=== PATIENT | female | born 1940 | race Caucasian/White ===

== ENCOUNTER → 2017-08-13 12:53 | Outpatient (CLI) | payer MEDICARE, MEDICAID, SELFPAY ==
[2017-08-13 14:48] LABS: Hematocrit 33.1 % (37-47); Mean Corp Hgb Conc 30.2 g/gl (32-36); Mean Corpuscular Hgb 28.8 pg (27.0-32.0); Mean Corpuscular Volume 95.4 fL (81-99); Mean Platelet Vol. 11.6 fl (6.2-12.0); Platelet Count 179 K/mm3 (150-450); RBC Distribution Width CV 15.5 % (11.6-14.6); RBC Distribution Width SD 51.4 fl (35.1-43.9); Red Blood Count 3.47 M/mm3 (4.2-5.4); White Blood Count 4.9 K/mm3 (4.4-11.0)
[2017-08-13 14:51] LABS: Scan Indicated on CBC? Y/N NO
[2017-08-13 15:28] LABS: Albumin, Serum 2.9 g/dL (3.2-5.0); BUN 27 mg/dL (7-18); BUN/Creat Ratio 11.7 RATIO (10-20); Calcium,Total 8.5 mg/dL (8.5-10.1); Chloride 106 mmol/L (98-107); EST Glomerular Filtration Rate 22 mL/min (>60); Est Glom Filt Rate - Afr Amer 26 mL/min (>60); Glucose 86 mg/dL (74-106); Phosphorus 2.7 mg/dL (2.5-4.9); Potassium 3.3 mmol/L (3.5-5.1); Sodium Level 144 mmol/L (136-145)
[2017-08-13 19:31] LABS: PTHIN 163.2 pg/mL (18.4-80.1)
--- NOTE | 2017-08-15 11:50 | PFT ---
INTRODUCTION: The patient is a 76-year-old female currently under the care of Uday ruby NP that presents for pulmonary function testing secondary to a diagnosis of high risk medication use. Respiratory therapy reports good patient effort and reports no other concerns. Bronchodilators were used during testing. INTERPRETATION: Forced expiration spirometry demonstrates no evidence of a large airways obstructive ventilatory defect. There was no significant response to aerosolized bronchodilators, based upon strict ATS criteria. Spirograms of good quality and plateau normally. Body plus tomography was performed and reveals lung volumes to be within normal limits. Diffusing capacity by single breath CO is severely reduced at 44% of predicted. When compared to previous pulmonary function studies dated July 2016 there has been a significant reduction in the patient's diffusing capacity. IMPRESSION: These pulmonary function studies demonstrate the presence of an isolated severe reduction in diffusing capacity, which could be related to an underlying pulmonary vascular disorder such as pulmonary hypertension. Since PFTs were last completed in July 2016, there has been a significant reduction in the patient's diffusing capacity. Clinical correlation is recommended.
== END ==
PROVIDERS: Family Provider Family Medicine; PCP Family Medicine; Visit Provider Nurse Practitioner Family
DX: I51.7 Cardiomegaly (principal); R60.0 Localized edema; N18.4 Chronic kidney disease, stage 4 (severe); I48.0 Paroxysmal atrial fibrillation; I50.22 Chronic systolic (congestive) heart failure; I25.10 Atherosclerotic heart disease of native coronary artery without angina pectoris; I25.5 Ischemic cardiomyopathy; I10 Essential (primary) hypertension; E78.5 Hyperlipidemia, unspecified; I25.2 Old myocardial infarction; Z79.899 Other long term (current) drug therapy; Z95.1 Presence of aortocoronary bypass graft
CPT/HCPCS: 36415; 80069; 83970; 85027; 94060; 94726; 94729

== ENCOUNTER 2017-09-06 06:59 | Emergency (ER) | payer MEDICARE, MEDICAID, SELFPAY ==
[2017-09-06 07:00] VITALS: BP 142/67; PULSE 54; RESP 18; TEMP 36.2; O2SAT 95; BMI 34.3
[2017-09-06 07:09] VITALS: O2SAT 97
--- NOTE | 2017-09-06 07:12 | EKG12_ITS ---
Test Reason : SOB Blood Pressure : / mmHG Vent. Rate : 050 BPM Atrial Rate : 050 BPM P-R Int : 196 ms QRS Dur : 130 ms QT Int : 510 ms P-R-T Axes : 063 -48 052 degrees QTc Int : 464 ms Sinus bradycardia Left axis deviation Non-specific intra-ventricular conduction block Abnormal ECG Confirmed by FRANCISCO GONZALEZ, LIZETTE ([id number]), newspaper or periodical editor GONSALO MATHEW ([id number]) on 09/08/2017 1:53:01 PM Referred By: MAAME Confirmed By:LIZETTE SINGH MD
--- NOTE | 2017-09-06 07:12 | RAD_ITS ---
STUDY: X-RAY CHEST REASON FOR EXAM: Female, 76 years old. Increasing shortness of breath. TECHNIQUE: PA and lateral views of the chest. COMPARISON: Comparison is made with prior study dated February 25, 2016. FINDINGS: EKG electrodes are seen. The patient is status post left mastectomy and left axillary node dissection. Blastic congestion and mild degree of CHF. There is no demonstrated pleural abnormality. Sternal cerclage wires are present from a prior sternotomy. A metallic clip is seen in the region of the left atrium. Normal mediastinum and ritika. Normal visualized pulmonary arteries. There is atherosclerotic calcification of the aortic arch with tortuosity. Cardiomegaly. There are diffuse degenerative changes of the visualized thoracic spine. Normal visualized ribs, clavicles, and shoulders. There is no demonstrated abnormality of the visualized soft tissue structures of the upper abdomen. RAD/Chest PA and Lateral IMPRESSION: Cardiomegaly and CHF. Electronically Signed: Pavel Macias MD at 8:15 EST Tel [phone], Service support ,
--- NOTE | 2017-09-06 07:15 | ED.VISSUMM ---
- ER Visit Summary Date of Service: 09/06/17 Chief Complaint: Leg swelling and shortness of breath History of Present Illness: The patient is a 76 F who states that she has had leg swelling for the past several weeks. She states that she has never really had significant leg swelling in the past. 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 She states that this was because of declining renal function. At her last director home in (Dr. Campbell) office her amiodarone was also decreased. Patient has noted that as her legs is swollen she has been somewhat short of breath with exertion. No chest pain. Patient has had a CABG about 2.5 years ago. Physical Examination: Afebrile vital signs are stable Gen: Well-nourished well-developed Head: Normocephalic atraumatic Eyes: Perrl EOMI ENT: TMs clear no rhinorrhea moist mucous membranes Neck: Supple no lymphadenopathy no JVD nontender CVS: Regular rate rhythm no murmurs normal S1-S2 Respiratory: No distress clear to auscultation bilaterally chest nontender Abdomen: Soft nontender nondistended normal bowel sounds no masses Back: Nontender Extremity: 3+ edema bilaterally to the level of the knee Skin: Normal color no rash Neuro: alert orientated ?3 CN II-XII intact normal strength sensation reflexes gait cerebellar Psych: Normal affect normal mood Test Results: 3 shows a mild amount of pulmonary fluid. Creatinine is improved from 2.3 on August 13 down to 1.8 on every today. White count is normal. Troponin negative. Nitrate peptide 1844. EKG shows a sinus bradycardia rate of 50 with a nonspecific intraventricular conduction delay. Emergency Department Course and Treatment: Ambulated the patient she was 94% on room air. I spoke with Dr. Patten plan will be to give her 40 of Lasix IV and take her back to 40 mg. She is to see Dr. Patten next week for repeat examination and check of creatinine level. She is comfortable with this plan. Impression: 1. Lymphedema 2. Congestive heart failure 3. Chronic kidney disease This note was generated with [employer] software. It may contain incorrect words, spelling, and punctuation that were not noted in review of the chart prior to signing ED Disposition - Plan for ED Patient: Disposition: Home or Assisted Living Chief Complaint: Shortness of Breath Instructions: ED CHF General, ED Lymphedema Prescriptions: Furosemide [Lasix] 40 mg PO DAILY #20 tab Referrals: Hero Knapp MD [Primary Care Provider] - Marilia Patten DO [STAFF PHYSICIAN] - (call today to arrange early follow up to have your legs and kidney function checked)
[2017-09-06 07:49] VITALS: O2SAT 95
[2017-09-06 07:54] LABS: Absolute Lymphocyte Count 0.77 X10^3/ul (0.83-4.51); Absolute Neutrophil Count 3.2 X10^3/uL (2.0-7.7); Basophil# 0.01 X10^3/uL; Basophil% 0.2 % (0-1); Eosinophil# 0.18 X10^3/uL; Hematocrit 33.5 % (37-47); Hemoglobin 9.9 g/dl (12.0-15.0); Lymphocyte # 0.77 X10^3/ul (4.0); Lymphocyte % 17.3 % (19-41); Mean Corp Hgb Conc 29.6 g/gl (32-36); Mean Corpuscular Hgb 28.1 pg (27.0-32.0); Mean Corpuscular Volume 95.2 fL (81-99); Mean Platelet Vol. 10.2 fl (6.2-12.0); Monocyte# 0.35 X10^3/uL; Monocyte% 7.8 % (0-10); Neutrophil # 3.15 X10^3/uL (2.7-7.7); Neutrophil % 70.7 % (47-70); POSITIVE COUNT NO; POSITIVE DIFFERENTIAL NO; POSITIVE MORPHOLOGY NO; Platelet Count 147 K/mm3 (150-450); RBC Distribution Width CV 16.2 % (11.6-14.6); RBC Distribution Width SD 56.4 fl (35.1-43.9); Red Blood Count 3.52 M/mm3 (4.2-5.4); White Blood Count 4.5 K/mm3 (4.4-11.0)
[2017-09-06 08:11] LABS: Anion Gap 3 (5-15); BUN 24 mg/dL (7-18); BUN/Creat Ratio 13.3 RATIO (10-20); Calcium,Total 8.9 mg/dL (8.5-10.1); Chloride 113 mmol/L (98-107); Creatinine, Serum 1.81 mg/dL (0.55-1.02); EST Glomerular Filtration Rate 29 mL/min (>60); Est Glom Filt Rate - Afr Amer 35 mL/min (>60); Estimated Creatinine Clearance 19.64 ml/min; Glucose 89 mg/dL (74-106); Potassium 3.8 mmol/L (3.5-5.1); Sodium Level 147 mmol/L (136-145)
[2017-09-06 08:20] LABS: BNP,B-Type NATRIURETIC PEPTIDE 1844.3 pg/mL (0-100)
[2017-09-06 09:08] VITALS: BP 149/72; PULSE 49; RESP 16; O2SAT 93
[2017-09-06 09:09] VITALS: BP 137/65
[2017-09-06] MEDS: Furosemide 40 MG/4 ML Vial IV (09:14)
== END 2017-09-06 09:24 | disposition home or self-care (01) ==
PROVIDERS: Emergency Provider Emergency Medicine; Family Provider Family Medicine; PCP Family Medicine
DX: I89.0 Lymphedema, not elsewhere classified (principal); I50.9 Heart failure, unspecified; N18.9 Chronic kidney disease, unspecified; R00.1 Bradycardia, unspecified; Z95.1 Presence of aortocoronary bypass graft; Z85.3 Personal history of malignant neoplasm of breast
CPT/HCPCS: 71046; 80048; 83880; 84484; 85025; 93005; 99285; A4216; J1940

== ENCOUNTER → 2017-10-26 12:27 | Outpatient (CLI) | payer MEDICARE, MEDICAID, SELFPAY ==
[2017-10-26 13:24] LABS: Hematocrit 33.5 % (37-47); Mean Corp Hgb Conc 29.9 g/gl (32-36); Mean Corpuscular Hgb 28.8 pg (27.0-32.0); Mean Corpuscular Volume 96.5 fL (81-99); Mean Platelet Vol. 10.9 fl (6.2-12.0); Platelet Count 158 K/mm3 (150-450); RBC Distribution Width CV 16.6 % (11.6-14.6); RBC Distribution Width SD 59.1 fl (35.1-43.9); Red Blood Count 3.47 M/mm3 (4.2-5.4); White Blood Count 4.2 K/mm3 (4.4-11.0)
[2017-10-26 13:26] LABS: Scan Indicated on CBC? Y/N NO
[2017-10-26 13:43] LABS: Albumin, Serum 3.1 g/dL (3.2-5.0); BUN 28 mg/dL (7-18); BUN/Creat Ratio 12.7 RATIO (10-20); Calcium,Total 8.8 mg/dL (8.5-10.1); Chloride 109 mmol/L (98-107); EST Glomerular Filtration Rate 23 mL/min (>60); Est Glom Filt Rate - Afr Amer 28 mL/min (>60); Glucose 83 mg/dL (74-106); Phosphorus 2.9 mg/dL (2.5-4.9); Potassium 3.5 mmol/L (3.5-5.1); Sodium Level 148 mmol/L (136-145)
[2017-10-27 09:07] LABS: PTHIN 161.4 pg/mL (18.4-80.1)
== END ==
PROVIDERS: Family Provider Family Medicine; PCP Family Medicine; Visit Provider Internal Medicine Nephrology
DX: N18.4 Chronic kidney disease, stage 4 (severe) (principal); D50.9 Iron deficiency anemia, unspecified; N25.81 Secondary hyperparathyroidism of renal origin
CPT/HCPCS: 36415; 80069; 83970; 85027

== ENCOUNTER 2017-11-28 18:10 | Emergency (ER) | payer MEDICARE, MEDICAID, SELFPAY ==
[2017-11-28 18:11] VITALS: BP 141/75; PULSE 53; PULSE 54; RESP 16; TEMP 36.5; O2SAT 96; BMI 33.5
--- NOTE | 2017-11-28 18:25 | ED.DCSUM_ITS ---
- ER Visit Summary Date of Service: 11/28/17 Chief Complaint: [] Head injury History of Present Illness: The patient is a 77 F [] complaining of mechanical fall over her dog leash resulting in striking her forehead. Denies LOC. Denies neck pain. Denies headache. Does report slight right supraorbital discomfort. No other complaints at this time. Physical Examination: [] Afebrile, vital signs stable. Head is normocephalic, there is right tenderness to the right supraorbital area without swelling or deformity. Pupils are equal round reactive, extraocular movements are intact. Neck is nontender in the midline. Remainder of exam is unremarkable. Test Results: [] CT head: Negative for acute process or brain bleed. There is a slight right- sided questionable mass. Emergency Department Course and Treatment: [] Patient was evaluated for head injury in no acute bleed was identified. She does have a questionable right-sided intracranial mass for which she was encouraged to follow-up and have an MRI. Treatment Plan: [] Follow-up with PCP for MRI. Disposition: [] Discharge, stable. Impression: [] Closed head injury This note was generated with [employer] dictation software. It may contain incorrect words, spelling, and punctuation that were not noted in review of the chart prior to signing ED Disposition - Plan for ED Patient: Chief Complaint: Fall Referrals: Hero Knapp MD [Primary Care Provider] -
--- NOTE | 2017-11-28 19:35 | CT_ITS ---
STUDY: CT BRAIN WITHOUT CONTRAST REASON FOR EXAM: Female, 77 years old. Fall. RADIATION DOSAGE (If Supplied By Facility): CTDIvol = ( 44.99 ) mGy, DLP = ( 745.49 ) mGycm TECHNIQUE: Transaxial CT imaging of the brain was performed without administration of intravenous contrast material. Individualized dose optimization techniques were used for this CT. COMPARISON: Nov 06 2014 2:07am. Also compared to MRI 11/05/2015. FINDINGS: Normal soft tissue structures. Normal calvarium. There is no acute traumatic injury. No evidence for intracranial hemorrhage, or contusion. A significant change has occurred in the right temporal lobe since the previous CT scan. There is no abnormal low-attenuation and possibly some mass effect. The findings could be from infarct or neoplasm. In fact there may be some high-density material along the medial aspect of the right middle cranial fossa. On careful review of the MRI from 11/05/2015, there may have been some developing edema in the same area. A low-grade neoplasm could have this appearance. Recommend MRI with contrast. No midline shift. Stable appearance of atrophy and otherwise generalized white matter disease. There is atrophy of the cerebellum. Orbits and sinuses are grossly negative. IMPRESSION: No definite acute traumatic abnormality. Abnormal appearance of the right temporal lobe since previous CT scan which may have been developing since the MRI of 11/05/2015. There is probable edema and a possible hyperdense mass. Neoplasm is a possibility. MRI with contrast is recommended. Normal size ventricles and extra-axial spaces for the patient's age. Normal white matter tracts of the cerebral hemispheres. Normal basal ganglia and thalami. Normal brainstem. Normal cerebellum. There is no intracranial hemorrhage. There are no findings of an acute ischemic infarction. Normal visualized paranasal sinuses. CT/Brain/Head without Contrast IMPRESSION: Normal unenhanced CT scan of the brain. Electronically Signed: Shad Menjivar MD at 20:23 EDT , Service support ,
--- NOTE | 2017-11-28 21:01 | ED.DEP ---
ED Disposition - Plan for ED Patient: Disposition: Home or Assisted Living Chief Complaint: Fall Instructions: ED Head Injury Closed Referrals: Hero Knapp MD [Primary Care Provider] -
[2017-11-28 21:12] VITALS: BP 158/72; PULSE 55; RESP 17; O2SAT 97
== END 2017-11-28 21:13 | disposition home or self-care (01) ==
PROVIDERS: Emergency Provider Emergency Medicine; Family Provider Family Medicine; PCP Family Medicine
DX: S09.90XA Unspecified injury of head, initial encounter (principal); W01.0XXA Fall on same level from slipping, tripping and stumbling without subsequent striking against object, initial encounter; Y93.K1 Activity, walking an animal; Y92.9 Unspecified place or not applicable; Y99.9 Unspecified external cause status; I10 Essential (primary) hypertension; I25.10 Atherosclerotic heart disease of native coronary artery without angina pectoris; Z95.1 Presence of aortocoronary bypass graft
CPT/HCPCS: 70450; 99282

== ENCOUNTER → 2017-11-29 10:52 | Outpatient (CLI) | payer MEDICARE, MEDICAID, SELFPAY ==
[2017-11-29 12:44] LABS: ALB/GLOB Ratio 0.8 RATIO (0.9-2.4); AST(SGOT) 18 U/L (15-37); Alanine Aminotransfer ALT/SGPT 14 U/L (13-56); Albumin, Serum 2.9 g/dL (3.2-5.0); Alkaline Phosphatase 175 U/L (45-117); Anion Gap 10 (5-15); BUN 26 mg/dL (7-18); BUN/Creat Ratio 13.7 RATIO (10-20); Calcium,Total 8.7 mg/dL (8.5-10.1); Chloride 109 mmol/L (98-107); EST Glomerular Filtration Rate 27 mL/min (>60); Est Glom Filt Rate - Afr Amer 33 mL/min (>60); Globulin 3.5 g/dL (2.2-4.2); Glucose 84 mg/dL (74-106); Potassium 3.6 mmol/L (3.5-5.1); Protein, Total 6.4 g/dL (6.4-8.2); Sodium Level 149 mmol/L (136-145)
== END ==
PROVIDERS: Family Provider Family Medicine; PCP Family Medicine; Visit Provider Family Medicine
DX: E03.9 Hypothyroidism, unspecified (principal); R60.0 Localized edema
CPT/HCPCS: 36415; 80053; 84443

== ENCOUNTER → 2017-12-07 10:28 | Outpatient (CLI) | payer MEDICARE, MEDICAID, SELFPAY ==
[2017-12-07 12:44] LABS: Anion Gap 10 (5-15); BUN 25 mg/dL (7-18); Calcium,Total 9.1 mg/dL (8.5-10.1); Chloride 107 mmol/L (98-107); Creatinine, Serum 1.92 mg/dL (0.55-1.02); EST Glomerular Filtration Rate 27 mL/min (>60); Est Glom Filt Rate - Afr Amer 33 mL/min (>60); Glucose 112 mg/dL (74-106); Potassium 3.7 mmol/L (3.5-5.1); Sodium Level 147 mmol/L (136-145)
== END ==
PROVIDERS: Family Provider Family Medicine; PCP Family Medicine; Visit Provider Family Medicine
DX: R60.0 Localized edema (principal)
CPT/HCPCS: 36415; 80048

== ENCOUNTER → 2018-04-01 13:44 | Outpatient (CLI) | payer MEDICARE, MEDICAID, SELFPAY ==
[2018-04-01 15:50] LABS: Hematocrit 33.5 % (37-47); Hemoglobin 10.1 g/dl (12.0-15.0); Mean Corp Hgb Conc 30.1 g/gl (32-36); Mean Corpuscular Volume 96.3 fL (81-99); Mean Platelet Vol. 10.8 fl (6.2-12.0); Platelet Count 169 K/mm3 (150-450); RBC Distribution Width CV 16.3 % (11.6-14.6); RBC Distribution Width SD 57.3 fl (35.1-43.9); Red Blood Count 3.48 M/mm3 (4.2-5.4); White Blood Count 4.8 K/mm3 (4.4-11.0)
[2018-04-01 16:22] LABS: ALB/GLOB Ratio 0.9 RATIO (0.9-2.4); AST(SGOT) 21 U/L (15-37); Alanine Aminotransfer ALT/SGPT 17 U/L (13-56); Albumin, Serum 3.2 g/dL (3.2-5.0); Alkaline Phosphatase 167 U/L (45-117); Anion Gap 11 (5-15); BUN 25 mg/dL (7-18); BUN/Creat Ratio 12.5 RATIO (10-20); Calcium,Total 8.8 mg/dL (8.5-10.1); Chloride 108 mmol/L (98-107); Cholesterol 111 mg/dL (200); EST Glomerular Filtration Rate 26 mL/min (>60); Est Glom Filt Rate - Afr Amer 31 mL/min (>60); Globulin 3.6 g/dL (2.2-4.2); Glucose 72 mg/dL (74-106); High Density Lipoprotein 53 mg/dL; Potassium 3.7 mmol/L (3.5-5.1); Protein, Total 6.8 g/dL (6.4-8.2); Sodium Level 147 mmol/L (136-145); Triglycerides 62 mg/dL; Very Low Density Lipoprotein 12 mg/dL (5-40)
[2018-04-01 16:32] LABS: BNP,B-Type NATRIURETIC PEPTIDE 1595.7 pg/mL (0-100)
[2018-04-04 05:38] LABS: Lymphocyte % 13.8 % (19-41); Neutrophil % 68.9 % (47-70); POSITIVE COUNT NO; POSITIVE DIFFERENTIAL NO; POSITIVE MORPHOLOGY NO
[2018-04-04 05:39] LABS: Absolute Lymphocyte Count 0.67 X10^3/ul (0.83-4.51); Absolute Neutrophil Count 3.3 X10^3/uL (2.0-7.7); Basophil# 0.05 X10^3/uL; Eosinophil# 0.49 X10^3/uL; Eosinophils% 10.1 % (0-5); Lymphocyte # 0.67 X10^3/ul (4.0); Monocyte# 0.29 X10^3/uL; Neutrophil # 3.33 X10^3/uL (2.7-7.7)
== END ==
PROVIDERS: Family Provider Family Medicine; PCP Family Medicine; Visit Provider Family Medicine
DX: I50.9 Heart failure, unspecified (principal); N18.9 Chronic kidney disease, unspecified
CPT/HCPCS: 36415; 80053; 80061; 83880; 85025; 85027

== ENCOUNTER → 2018-05-17 16:36 | Outpatient (CLI) | payer MEDICARE, MEDICAID, SELFPAY ==
--- NOTE | 2018-05-17 16:38 | US_ITS ---
STUDY: RENAL ULTRASOUND - COMPLETE REASON FOR EXAM: Female, 77 years old. Stage IV chronic kidney disease. TECHNIQUE: Ultrasound evaluation of the kidneys was performed with real-time and static hernandez-scale imaging. COMPARISON: CT abdomen and pelvis August 31, 2016. FINDINGS: RIGHT KIDNEY: Normal location of the right kidney, which is normal in size. The right kidney measures 10.9 x 3.5 x 3.7 cm. There is diffuse thinning of the renal cortex. The renal cortex measures 0.6 cm. Multiple simple cysts the largest measuring 1.5 x 1.3 x 1.0 cm There are no right renal calculi. There is no right hydronephrosis. DISTAL RIGHT URETER: There is non-visualization of the distal right ureter. There is no demonstrated right ureterovesical junction calculus. There is no demonstrated right ureteral jet. LEFT KIDNEY: Normal location of the left kidney, which is normal in size. The left kidney measures 10.4 x 4.0 x 4.2 cm. There is diffuse thinning of the renal cortex. The renal cortex measures 0.7 cm. Multiple simple cysts largest measuring 2.3 x 2.7 x 2.7 cm and 1.7 x 1.6 x 1.3 cm There are no left renal calculi. There is no left hydronephrosis. DISTAL LEFT URETER: There is non-visualization of the distal left ureter. There is no demonstrated left ureterovesical junction calculus. There is no demonstrated left ureteral jet. BLADDER: The distended urinary bladder has a volume of 90 ml. The empty urinary bladder has a volume of 44 ml. There is a normal wall thickness of the distended urinary bladder. There is no demonstrated mass within the urinary bladder. There are no demonstrated bladder calculi. US/Kidney and Bladder IMPRESSION: Parenchymal thinning compatible with chronic renal disease. Multiple bilateral renal cysts. No hydronephrosis. No significant postvoid bladder residual. Electronically Signed: Navneet Cuevas MD at 8:04 EST , Service support ,
== END ==
PROVIDERS: Family Provider Family Medicine; PCP Family Medicine; Referring Provider Internal Medicine Nephrology; Visit Provider Internal Medicine Nephrology
DX: N18.4 Chronic kidney disease, stage 4 (severe) (principal)
CPT/HCPCS: 76770

== ENCOUNTER → 2018-06-08 14:30 | Outpatient (CLI) | payer MEDICARE, MEDICAID, SELFPAY ==
[2018-02-01 16:04] VITALS: BMI 32.4
[2018-06-08 15:58] LABS: Color, Urine Yellow (Yellow); Glucose, Dipstick Normal (Normal); Ketone-Dipstick Negative (Negative); Leukocyte Esterase-Dipstick 25 /ul (Negative); Nitrite-Dipstick Negative (Negative); Occult Blood-Urine 25 /ul (Negative); Protein-Dipstick 30 mg/dl (Negative); Specific Gravity, Urine 1.005 (1.002-1.030); Urine Bilirubin Dipstick Negative (Negative); Urine Clarity Clear (Clear); Urine Urobilinogen 4 mg/dl (Normal)
[2018-06-08 15:59] LABS: Hemoglobin 10.6 g/dl (12.0-15.0); Mean Corp Hgb Conc 30.3 g/gl (32-36); Mean Corpuscular Hgb 30.3 pg (27.0-32.0); Mean Platelet Vol. 11.3 fl (6.2-12.0); Platelet Count 194 K/mm3 (150-450); RBC Distribution Width CV 15.3 % (11.6-14.6); RBC Distribution Width SD 53.9 fl (35.1-43.9); White Blood Count 6.1 K/mm3 (4.4-11.0)
[2018-06-08 16:02] LABS: Scan Indicated on CBC? Y/N NO
[2018-06-08 16:17] LABS: BUN 19 mg/dL (7-18); Creatinine, Serum 1.64 mg/dL (0.55-1.02); Glucose 83 mg/dL (74-106)
[2018-06-08 16:18] LABS: Albumin, Serum 2.9 g/dL (3.2-5.0); BUN/Creat Ratio 11.6 RATIO (10-20); Calcium,Total 8.6 mg/dL (8.5-10.1); Chloride 107 mmol/L (98-107); EST Glomerular Filtration Rate 32 mL/min (>60); Est Glom Filt Rate - Afr Amer 39 mL/min (>60); Phosphorus 2.8 mg/dL (2.5-4.9); Potassium 3.5 mmol/L (3.5-5.1); Sodium Level 144 mmol/L (136-145)
[2018-06-08 16:29] LABS: Microalbumin:Creatinine Ratio 328.4 mg/g CRE (<30 mg/g CRE); Protein, Urine (Random) 40.3 mg/dL (<11.9); Protein:Creat Ratio 1182 mg/g CRE (0-200)
[2018-06-08 16:35] LABS: Vitamin D,25 Hydroxy 24.2 ng/mL (29.95-100.01)
--- OUTSIDE RECORDS SUMMARY | 2018-08-04 00:32 | XMS RPT_ITS ---
:1940 Author Organization OHIP Support Name Relationship Address Phone KENNETH GUZMANRY Unavailable Unavailable + [place] [address] GUZMAN, ERMELINDA Unavailable Unavailable + [place] [address] R Unavailable Unavailable Unavailable GUZMAN, MATT Unavailable Unavailable + [place] [address] GUZMAN, ERMELINDA Unavailable Unavailable + [place] [address] R Unavailable Unavailable Unavailable GUZMAN, MATT Unavailable [address] + [place] [address] GUMZAN, ERMELINDA Unavailable Unavailable + [place] [address] R Unavailable Unavailable Unavailable GUZMAN, MATT Unavailable [address] + [place] [address] GUZMAN, ERMELINDA Unavailable Unavailable + [place] [address] R Unavailable Unavailable Unavailable GUZMAN, MATT Unavailable [address] + [place] [address] GUZMAN, ERMELINDA Unavailable . + [place] [address] R Unavailable Unavailable Unavailable GUZMAN, MATT Unavailable [address] + [place] [address] GUZMAN, ERMELINDA Unavailable Unavailable + [place] [address] R Unavailable Unavailable Unavailable GUZMAN, MATT Unavailable [address] + [place] [address] GUZMAN, ERMELINDA Unavailable Unavailable + [place] [address] R Unavailable Unavailable Unavailable GUZMAN, MATT Unavailable [address] + [place] [address] GUZMAN, ERMELINDA Unavailable Unavailable + [place] [address] R Unavailable Unavailable Unavailable GUZMAN, MATT Unavailable [address] [place] [address] RD + [place] [address] GUZMAN, ERMELINDA Unavailable Unavailable + [place] [address] R Unavailable Unavailable Unavailable GUZMAN, MATT Unavailable [address] [place] [address] RD + [place] [address] GUZMAN, ERMELINDA Unavailable Unavailable + [place] [address] R Unavailable Unavailable Unavailable GUZMAN, MATT Unavailable [address] [place] [address] RD + [place] [address] GUZMAN, ERMELINDA Unavailable . + [place] [address] R Unavailable Unavailable Unavailable GUZMAN, MATT Unavailable [address] [place] [address] RD + [place] [address] R Unavailable Unavailable Unavailable GUZMAN, MATT Unavailable [address] [place] [address] RD + [place] [address] GUZMAN, ERMELINDA Unavailable Unavailable + R Unavailable Unavailable Unavailable GUZMAN, MATT Unavailable [address] [place] [address] RD + [place] [address] GUZMAN, ERMELINDA Unavailable . + [place] [address] R Unavailable Unavailable Unavailable GUZMAN, MATT Unavailable [address] [place] [address] RD + [place] [address] GUZMAN, ERMELINDA Unavailable Unavailable + R Unavailable Unavailable Unavailable GUZMAN, MATT Unavailable [address] [place] [address] RD + [place] [address] GUZMAN, ERMELINDA Unavailable . + [place] [address] R Unavailable Unavailable Unavailable GUZMAN, MATT Unavailable [address] [place] [address] RD + [place] [address] GUZMAN, ERMELINDA Unavailable Unavailable + R Unavailable Unavailable Unavailable GUZMAN, MATT Unavailable [address] [place] [address] RD + [place] [address] R Unavailable Unavailable Unavailable GUZMNA, MATT Unavailable [address] + [place] [address] R Unavailable Unavailable Unavailable GUZMAN, MATT Unavailable [address] + [place] [address] R Unavailable Unavailable Unavailable Care Team Providers Name Role Phone Phil Young Attending Unavailable PROVIDER, UNKNOWN Referring Unavailable No, PCP Primary Care Unavailable Phil Young Attending Unavailable Phil Young Referring Unavailable [facility] Unavailable Matthewney, Iglesiaer Attending Unavailable Ranney, Christopher Referring Unavailable [facility] Unavailable Denice Dunne Attending Unavailable Everardo Campbell Attending Unavailable Ranney, Christopher Referring Unavailable Roof, Uday H Attending Unavailable Roof, Uday H Referring Unavailable [facility], [facility] Unavailable Sandor, Marilia Consulting Unavailable SandorTravMarilia Attending Unavailable Ranney, Christopher Primary Care Unavailable Alesia Jerez Attending Unavailable Roof, Uday H Attending Unavailable Ranney, Christopher Referring Unavailable Ranney, Christopher Primary Care Unavailable Bijan Mcfadden D.O. Attending Unavailable Roof, Duay H Referring Unavailable Ranney, Christopher Primary Care Unavailable Kota Arreguin Attending Unavailable SandorTravMarilia Attending Unavailable Ranney, Christopher Primary Care Unavailable Trav Pattenine Referring Unavailable SandorTravMarilia Attending Unavailable Ranney, Christopher Primary Care Unavailable Ranney, Christopher Primary Care Unavailable Nina Maxwell Attending Unavailable Everardo Campbell Referring Unavailable Ranney, Christopher Attending Unavailable Ranney, Christopher Referring Unavailable Ranney, Christopher Primary Care Unavailable MatthewneyIglesiaer Attending Unavailable Ranney, Christopher Primary Care Unavailable Ranney, Christopher Referring Unavailable Roof, Uday H Attending Unavailable Ranney, Christopher Referring Unavailable Ranney, Christopher Primary Care Unavailable Ranney, Christopher Attending Unavailable Ranney, Christopher Referring Unavailable Ranney, Christopher Primary Care Unavailable Abelino Kaplan Attending Unavailable Abelino Kaplan Referring Unavailable Ranney, Christopher Primary Care Unavailable Tanphaichitr, Natthavat Attending Unavailable Tanphaichitr, Natthavat Referring Unavailable Ranney, Christopher Primary Care Unavailable PROBLEMS PROBLEMS DATE TYPE CONDITION / CODE ATTENDING STATUS SOURCE 06/08/2018 Unknown N18.4 - Chronic Tanphaichitr, Active [facility] kidney disease, [facility] stage 4 (severe) / Hospital N18.4(ICD-10) Repository 06/08/2018 Unknown 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, 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 / [facility] E61.1(ICD-10) Hospital Repository 12/07/2017 Unknown R60.9 - Edema, Ranney, Active [facility] unspecified / [facility] R60.9(ICD-10) Hospital Repository 08/13/2017 Unknown I51.7 - Roof, Uday H Active [place] [facility] I51.7(ICD-10) Hospital Repository PROCEDURES PROCEDURES No Procedure Records FoundRESULTS RESULTS MRI BRAIN W/O Observed: 06/28/2018 Status: F Source: [place] Direct CONTRAST 1:50 PM SYSTEM REPOSITORY Patient Name: KONSTANTIN GUZMAN MRI Exam Date/Time 06/28/2018 11:44:07 EST Exam MRI Brain w/o Contrast Ordering Physician PHIL YOUNG Accession Number [id number] CPT4 Codes 03564 () Reason For Exam Third oculomotor nerve palsy Report Examination: MRI brain Indication: Third oculomotor nerve palsy Technique: Multi-planar multi-sequence MRI images of the brain were obtained, including gradient echo, T2 and flair axial images, T1 sagittal and coronal images, in addition to diffusion/ADC map. Findings: Large amount of parenchymal edema is present within the mid and anterior portion of the right temporal lobe. There is also some involvement of the right insula. There is cystic change or cystic lesion along the anterior temporal lobe on the right which measures approximately 2.2 x 1.5 cm on the axial images. There is loss of the normal CSF space along the medial anterior temporal lobe on the right with associated diminished T1 signal, possibly subacute or remote blood products. There is at least fatty replacement and possible infiltration of the right pterygoid musculature and right masseter muscle. There is no midline shift demonstrated. Increased T2/FLAIR signal abnormality in the periventricular white matter is likely secondary to chronic small vessel ischemia. There are also increased T2 signal changes in the subcortical white matter on the left. The basal cisterns are patent. The posterior fossa and midline structures are grossly intact and unremarkable. Mild inflammatory changes of the ethmoid air cells are noted. Otherwise, the paranasal sinuses are grossly clear. The mastoid air cells are grossly clear. The bilateral orbits are grossly unremarkable. There is no abnormal diffusion restriction to suggest acute ischemia/infarct. 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 Assessment is limited on this study given the lack gadolinium administration (given the patient's GFR less than 30, gadolinium was not administered because of the risks of NSF). A CT of the head with and without contrast may be performed for further characterization. Comparison with any prior studies would be helpful to assess for interval change. Abnormal appearance of the right masseter and right pterygoid musculature. This represents a critical test result (CTR). Findings were discussed with Dr. Young at approximately 2:00 PM on 06/28/2018. Report Dictated on Final Dictated: 06/28/2018 1:50 pm Dictating Physician: MD CAMERON KRIKOR Signed Date and Time: 06/28/2018 2:18 pm Signed by: MD CAMERON KRIKOR Transcribed Date and Time: 06/28/2018 1:50 ERYTHROCYTE SED RATE Collected: 06/24/2018 Status: F Source: [place] 10:26 AM [facility] [place] TYPE CODE TESTS RESULT OUT OF RANGE REFERENCE UNITS LAB L102.0000 0-30 mm/hr Normal SED RATE 21 Performed By: #### L101.9900 #### [facility] [address]. [place], [place], [address] SERUM CREATININE AND Collected: 06/24/2018 Status: F Source: [place] GFR 10:26 AM [facility] [place] TYPE CODE TESTS RESULT OUT OF RANGE REFERENCE UNITS LAB L501.1100 0.55-1.02 mg/dL High 1.84 CREAT,SERUM Result Comment: The validity of the calculated GFR AND GFRAA in patients over 70 years has not been determined. Clinical correlation is essential. LAB L501.1110 >60 mL/min Low EST GFR 28 Result Comment: Non- GFR Calc LAB L501.1115 >60 mL/min Low EST GFR - AA 34 Result Comment: GFR Calc Performed By: #### L501.1105, L501.6710 #### [facility] [address] [place], [address] CRP Collected: 06/24/2018 Status: F Source: [place] 10:26 AM [facility] [place] TYPE CODE TESTS RESULT OUT OF RANGE REFERENCE UNITS LAB L501.6710 0.0-3.0 mg/L Normal < 2.90 C-REACTIVE PROT Result Comment: C-Reactive Protein (CRP) provides useful information for the diagnosis, therapy and monitoring of inflammatory processes and associated diseases. For the evaluation of Relative Risk for Cardiovascular Disease, a High Sensitivity CRP (HSCRP) should be ordered. Performed By: #### L501.1105, L501.6710 #### [facility] [address] [place], [address] CBC-COMPLETE BLOOD CNT Collected: 06/08/2018 Status: F Source: [place] NO DIFF 2:37 PM [facility] [place] TYPE CODE TESTS RESULT OUT OF RANGE REFERENCE UNITS LAB L100.1000 4.4-11.0 K/mm3 Normal WBC 6.1 LAB L100.1200 4.2-5.4 M/mm3 Low RBC 3.50 LAB L100.1300 12.0-15.0 g/dl Low HGB 10.6 LAB L100.1400 37-47 % Low HCT 35.0 LAB L100.1500 81-99 fL High MCV 100.0 LAB L100.1600 27.0-32.0 pg Normal MCH 30.3 LAB L100.1700 32-36 g/gl Low MCHC 30.3 LAB L100.1810 11.6-14.6 % High RDW CV 15.3 LAB L100.1820 35.1-43.9 fl High RDW SD 53.9 LAB L100.1900 150-450 K/mm3 Normal PLT 194 LAB L100.2000 6.2-12.0 fl Normal MPV 11.3 Performed By: #### L100.0500 #### [facility] [address] [place], [address] URINALYSIS, ROUTINE Collected: 06/08/2018 Status: F Source: [place] (DIPSTICK) 2:37 PM [facility] [place] Order Comment: How was Urine Obtained? CLEAN CATCH TYPE CODE TESTS RESULT OUT OF RANGE REFERENCE UNITS LAB L400.3000 Yellow COLOR Normal Yellow LAB L400.3050 Clear Normal CLARITY Clear LAB L400.3200 Normal mg/dl Normal GLUCOSE, UR Normal LAB L400.3300 Negative mg/dL Normal BILIRUBIN URINE Negative LAB L400.3400 Negative mg/dl Normal KETONE UR Negative LAB L400.3465 1.002-1.030 Normal SP.GR. DIPSTX 1.005 LAB L400.3550 5.0 - 8.0 pH UR Normal 7.0 LAB L400.3600 Negative mg/dl High PROT 30 DIPSTX LAB L400.3700 Normal mg/dl High 4 UROBILI LAB L400.3750 Negative Normal NITRITE UR Negative LAB L400.3780 Negative /ul High 25 OCCULT BLOOD-UR LAB L400.3800 Negative /ul High LEUK 25 ESTERASE Performed By: #### L400.2010 #### [facility] [address] [place], [place], [address] PROTEIN+CREATININE Collected: Status: F Source: [place] RATIO,URINE 06/08/2018 2:37 PM [facility] [place] TYPE CODE TESTS RESULT OUT OF RANGE REFERENCE UNITS LAB L501.1200 NO RANGE EST. mg/dL Normal UR CREAT 34.10 LAB L501.1930 <11.9 mg/dL High 40.3 PROTEIN,UR.R AN. LAB L501.1940 0-200 mg/g CRE High PROT:CRE 1182 RATIO Performed By: #### L501.0900, L502.0250 #### [facility] [address] [place], [place], [address] MICROALB:CREAT Collected: 06/08/2018 Status: F Source: [place] RATIO,RANDOM UR 2:37 PM [facility] [place] TYPE CODE TESTS RESULT OUT OF RANGE REFERENCE UNITS LAB L502.0500 NO RANGE EST. mg/L Normal 112.0 MICROALBUMIN ,UR LAB L502.0600 <30 mg/g CRE mg/g CRE High 328.4 MALB:CREAT Performed By: #### L501.0900, L502.0250 #### [facility] [address] [place], [address] PTHIN Collected: 06/08/2018 Status: F Source: [place] 2:37 PM [facility] [place] TYPE CODE TESTS RESULT OUT OF RANGE REFERENCE UNITS LAB L509.1000 18.4-80.1 pg/mL High PTHIN 149.0 Performed By: #### L509.1000 #### [facility] [address] [place], [address] VITAMIN D,25 HYDROXY Collected: 06/08/2018 Status: F Source: [place] 2:37 PM [facility] [place] TYPE CODE TESTS RESULT OUT OF REFERENCE UNITS RANGE LAB L506.1000 29.95-100.01 ng/mL Low Vitamin D 24.2 25-OH Result Comment: Vitamin D 25(OH) Status Range Deficiency <20 ng/mL (50nmol/L) Insuffciency 20 - 30 ng/mL (50 - 75 nmol/L) Sufficiency 30 - 100 ng/mL (75 - 250 nmol/L) Toxicity >100 ng/mL (>250 nmol/L) Performed By: #### L506.1000 #### [facility] [address] [place], [address] RENAL PROFILE Collected: 06/08/2018 Status: F Source: [place] 2:35 PM [facility] [place] Order Comment: Order Date: 12/01/17 Order Info: 0667-1 - BMP TYPE CODE TESTS RESULT OUT OF RANGE REFERENCE UNITS LAB L501.0100 74-106 mg/dL Normal GLU 83 Result Comment: Please note revised GLUCOSE reference range effective 2017. LAB L501.1000 7-18 mg/dL High BUN 19 LAB L501.1100 0.55-1.02 mg/dL High CREAT,SERUM 1.64 Result Comment: The validity of the calculated GFR AND GFRAA in patients over 70 years has not been determined. Clinical correlation is essential. LAB L501.1110 >60 mL/min Low EST GFR 32 Result Comment: Non- GFR Calc LAB L501.1115 >60 mL/min Low EST GFR - AA 39 Result Comment: GFR Calc LAB L501.1300 10-20 RATIO Normal BUN/CRE 11.6 LAB L501.1800 3.2-5.0 g/dL Low ALB 2.9 LAB L501.2200 8.5-10.1 mg/dL CA Normal 8.6 LAB L501.2300 2.5-4.9 mg/dL Normal PHOS 2.8 LAB L501.5300 136-145 mmol/L NA Normal 144 LAB L501.5600 3.5-5.1 mmol/L K Normal 3.5 LAB L501.5900 98-107 mmol/L CL Normal 107 LAB L501.6100 21.0-32.0 mmol/L Normal CO2 31.0 Performed By: #### L500.3600 #### [facility] [address], [address] KIDNEY AND BLADDER Observed: 05/17/2018 Status: F Source: [place] 4:39 PM [facility] [place] [facility] Imaging Services [address] [facility] [place] [address] Kidney and Bladder MR#: [id number] Acct: [id number] Name: KONSTANTIN GUZMAN Rep #: [id number] : 1940 F 77 From: Navneet Cuevas PCP: Roberto Knapp MD Status: REG CLI Study: Kidney and Bladder Date of Exam: 05/17/18 Exam# [id number] Ordering Dr: Abelino Kaplan MD STUDY: RENAL ULTRASOUND - COMPLETE REASON FOR EXAM: Female, 77 years old. Stage IV chronic kidney disease. TECHNIQUE: Ultrasound evaluation of the kidneys was performed with real-time and static hernandez-scale imaging. COMPARISON: CT abdomen and pelvis August 31, 2016. FINDINGS: RIGHT KIDNEY: Normal location of the right kidney, which is normal in size. The right kidney measures 10.9 x 3.5 x 3.7 cm. There is diffuse thinning of the renal cortex. The renal cortex measures 0.6 cm. Multiple simple cysts the largest measuring 1.5 x 1.3 x 1.0 cm There are no right renal calculi. There is no right hydronephrosis. DISTAL RIGHT URETER: There is non-visualization of the distal right ureter. There is no demonstrated right ureterovesical junction calculus. There is no demonstrated right ureteral jet. LEFT KIDNEY: Normal location of the left kidney, which is normal in size. The left kidney measures 10.4 x 4.0 x 4.2 cm. There is diffuse thinning of the renal cortex. The renal cortex measures 0.7 cm. Multiple simple cysts largest measuring 2.3 x 2.7 x 2.7 cm and 1.7 x 1.6 x 1.3 cm There are no left renal calculi. There is no left hydronephrosis. DISTAL LEFT URETER: There is non-visualization of the distal left ureter. There is no demonstrated left ureterovesical junction calculus. There is no demonstrated left ureteral jet. BLADDER: The distended urinary bladder has a volume of 90 ml. The empty urinary bladder has a volume of 44 ml. There is a normal wall thickness of the distended urinary bladder. There is no demonstrated mass within the urinary bladder. There are no demonstrated bladder calculi. US/Kidney and Bladder IMPRESSION: Parenchymal thinning compatible with chronic renal disease. Multiple bilateral renal cysts. No hydronephrosis. No significant postvoid bladder residual. Electronically Signed: Navneet Cuevas MD at 8:04 EST , Service support , CC: Abelino Kaplan MD; Roberto Knapp MD [employer] Technician: Signed BNP,B-TYPE NATRIURETIC Collected: 04/01/2018 Status: F Source: [place] 2:03 PM [facility] [place] TYPE CODE TESTS RESULT OUT OF RANGE REFERENCE UNITS LAB L503.6620 0-100 pg/mL High B-TYPE 1595.7 KELL PEP Performed By: #### L503.6620 #### [facility] [address] [place], [address] CBC-COMPLETE BLOOD CNT Collected: 04/01/2018 Status: F Source: [place] NO DIFF 2:02 PM [facility] [place] Order Comment: Order Date: 12/23/17 Order Info: [id number] - CBC TYPE CODE TESTS RESULT OUT OF RANGE REFERENCE UNITS LAB L100.1000 4.4-11.0 K/mm3 Normal WBC 4.8 LAB L100.1200 4.2-5.4 M/mm3 Low RBC 3.48 LAB L100.1300 12.0-15.0 g/dl Low HGB 10.1 LAB L100.1400 37-47 % Low HCT 33.5 LAB L100.1500 81-99 fL Normal MCV 96.3 LAB L100.1600 27.0-32.0 pg Normal MCH 29.0 LAB L100.1700 32-36 g/gl Low MCHC 30.1 LAB L100.1810 11.6-14.6 % High RDW CV 16.3 LAB L100.1820 35.1-43.9 fl High RDW SD 57.3 LAB L100.1900 150-450 K/mm3 Normal PLT 169 LAB L100.2000 6.2-12.0 fl Normal MPV 10.8 Performed By: #### L100.0500, L500.4050, L500.4100 #### [facility] [address] [place], [address] COMPREHENSIVE METABOLIC Collected: 04/01/2018 Status: F Source: [facility] 2:02 PM [facility] [place] Order Comment: Order Date: 12/23/17 Order Info: [id number] - CMP Order Info: 11583-1 - LIPID TYPE CODE TESTS RESULT OUT OF RANGE REFERENCE UNITS LAB L501.0100 74-106 mg/dL Low GLU 72 Result Comment: Please note revised GLUCOSE reference range effective 2017. LAB L501.1000 7-18 mg/dL High BUN 25 LAB L501.1100 0.55-1.02 mg/dL High CREAT,SERUM 2.00 Result Comment: The validity of the calculated GFR AND GFRAA in patients over 70 years has not been determined. Clinical correlation is essential. LAB L501.1110 >60 mL/min Low EST GFR 26 Result Comment: Non- GFR Calc LAB L501.1115 >60 mL/min Low EST GFR - AA 31 Result Comment: GFR Calc LAB L501.1300 10-20 RATIO Normal BUN/CRE 12.5 LAB L501.1500 6.4-8.2 g/dL T Normal PROT 6.8 LAB L501.1800 3.2-5.0 g/dL Normal ALB 3.2 LAB L501.1950 2.2-4.2 g/dL Normal GLOB 3.6 LAB L501.2000 0.9-2.4 RATIO Normal A/G 0.9 LAB L501.2200 8.5-10.1 mg/dL CA Normal 8.8 LAB L501.4100 15-37 U/L Normal AST 21 LAB L501.4305 45-117 U/L High ALK P 167 LAB L501.4405 13-56 U/L Normal ALT 17 LAB L501.4600 0.20-1.00 mg/dL High T BILI 1.10 LAB L501.5300 136-145 mmol/L High NA 147 LAB L501.5600 3.5-5.1 mmol/L K Normal 3.7 LAB L501.5900 98-107 mmol/L High CL 108 LAB L501.6100 21.0-32.0 mmol/L Normal CO2 28.0 LAB L501.6200 5-15 Normal GAP 11 Performed By: #### L100.0500, L500.4050, L500.4100 #### [facility] [address] [place], [place], [address] LIPID PROFILE Collected: 04/01/2018 Status: F Source: [place] 2:02 PM [facility] [place] Order Comment: Order Date: 12/23/17 Order Info: [id number] - CMP Order Info: 62899-4 - LIPID TYPE CODE TESTS RESULT OUT OF RANGE REFERENCE UNITS LAB L501.4900 200 mg/dL Normal CHOL 111 Result Comment: <200 mg/dL Desirable 200-240 mg/dL Borderline >240 mg/dL High Risk LAB L501.5000 mg/dL Normal TRIG 62 Result Comment: The drugs N-Acetylcysteine and Metamizole may falsely depress this assay. Serum Triglycerides Reference Interval Normal <150 mg/dL Borderline high 150 - 199 mg/dL High 200 - 499 mg/dL Very High > or = 500 mg/dL LAB L501.6400 mg/dL Normal HDL 53 Result Comment: The drugs N-Acetylcysteine and Metamizole may falsely depress this assay. Reference Range HDL <40 mg/dL Low HDL Cholesterol HDL >or= 60 mg/dL High HDL Cholesterol LAB L501.6500 0-130 mg/dL Normal LDL 46 LAB L501.6600 5-40 mg/dL Normal VLDL 12 Performed By: #### L100.0500, L500.4050, L500.4100 #### [facility] [place], [address] CBC W/DIFF, AUTOMATED Collected: 04/01/2018 Status: F Source: [place] 2:02 PM [facility] [place] Order Comment: Order Date: 12/23/17 Order Info: 32845-6 - CBC TYPE CODE TESTS RESULT OUT OF RANGE REFERENCE UNITS LAB L100.1000 4.4-11.0 K/mm3 Normal WBC 4.8 LAB L100.1200 4.2-5.4 M/mm3 Low RBC 3.48 LAB L100.1300 12.0-15.0 g/dl Low HGB 10.1 LAB L100.1400 37-47 % Low HCT 33.5 LAB L100.1500 81-99 fL Normal MCV 96.3 LAB L100.1600 27.0-32.0 pg Normal MCH 29.0 LAB L100.1700 32-36 g/gl Low MCHC 30.1 LAB L100.1810 11.6-14.6 % High RDW CV 16.3 LAB L100.1820 35.1-43.9 fl High RDW SD 57.3 LAB L100.1900 150-450 K/mm3 Normal PLT 169 LAB L100.2000 6.2-12.0 fl Normal MPV 10.8 LAB L100.2100 47-70 % Normal NEUT% 68.9 LAB L100.2200 19-41 % Low LY% 13.8 LAB L100.2300 0-10 % Normal MONO% 6.0 LAB L100.2400 0-5 % High EO% 10.1 LAB L100.2500 0-1 % Normal BASO% 1.0 LAB L100.2550 0.0-0.9 % Normal IM GRAN % 0.200 Result Comment: IG% - Immature Granulocytes (promyelocytes, myelocytes and metamyelocytes) > 1% indicates that a LEFT SHIFT is Present. LAB L100.2620 2.0-7.7 X10 3/uL Normal Absolute Neut 3.3 LAB L100.2720 0.83-4.51 X10 3/ul Low Absolute Lymph 0.67 Performed By: #### L100.0100 #### [facility] [address] [place], [address] CARDIOLOGY VISIT Observed: 02/01/2018 Status: F Source: [place] REPORT 4:52 PM [facility] [place] [facility] [address] [place] [address] OFFICE VISIT Date of Service: 02/01/18 MR#: [id number] Acct: [id number] Name: KONSTANTIN GUZMAN Rep #: [id number] : 1940 Provider: REBECCA Ruby Age/Sex: 77/F Location: [facility] Status: Signed HPI HPI Details: KONSTANTIN GUZMAN, is a 77 F who presents to the office today for a cardiovascular outpatient follow-up. She has a history of coronary artery disease status post bypass surgery in November 2015 with a BRAMBILA to the LAD, SVG to the intermedius ramus, SVG to the first obtuse marginal, and SVG to RCA, left atrial appendage ligation, atrial fibrillation status post cardioversion in February 2016, ischemic cardiomyopathy, hypertension, hyperlipidemia, and chronic renal insufficiency. Pt. denies chest, arm, jaw, or neck discomfort. Her exercise tolerance is stable. Pt. denies symptoms of CHF, palpitations, lightheadedness, dizziness, near syncope, or syncopal episodes. Pt. denies claudication issues. Pt. denies orthopnea, PND, fever, chills, blood in urine, blood in stool, myalgia, or unexplainable fatigue. 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: No Accompanied by: Son Is patient in pain?: No Allergies codeine Allergy (Verified 02/01/18 16:10) Rash amlodipine besylate [From [facility]] Adverse Reaction (Verified 02/01/18 16:10) Pain in joints Medications Gabapentin [Neurontin] 300 mg PO TIDCM 12/03/15 [History Confirmed 11/28/17] Levothyroxine [Synthroid] 50 mcg PO DAILY 12/03/15 [History Confirmed 11/28/17] ferrous sulfate 325 mg (65 mg iron) tablet,delayed release 325 mg PO DAILY tab 06/18/17 [History Confirmed 11/28/17] amiodarone 100 mg tablet 100 mg PO QDAY #90 tab 02/01/18 [Rx Confirmed 02/01/18] carvedilol 6.25 mg tablet 6.25 mg PO BID #180 tab 02/01/18 [Rx Confirmed 02/01/18] furosemide 20 mg tablet 20 mg PO BID #180 tab 02/01/18 [Rx Confirmed 02/01/18] potassium chloride ER 20 mEq tablet,extended release(part/cryst) 20 meq PO BID #180 tab 02/01/18 [Rx Confirmed 02/01/18] pravastatin 80 mg tablet 80 mg PO QHS #90 tab 02/01/18 [Rx Confirmed 02/01/18] Ejection fraction %: 35 to 39 PFSH Medical History Other secondary pulmonary hypertension (Chronic) Long-term use of high-risk medication (Chronic) Atherosclerotic heart disease of [place] coronary artery without angina pectoris (Chronic) Paroxysmal atrial fibrillation (Chronic) History of non-ST elevation myocardial infarction (NSTEMI) (Chronic) 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, bilateral (Chronic) Pulmonary hypertension, secondary (Chronic) Benign essential HTN (Chronic) HLD (hyperlipidemia) (Chronic) CKD (chronic kidney disease) stage 3, GFR 30-59 ml/min (Chronic) Hypokalemia (Acute) Thyroid disease (Chronic) Cardiomyopathy, ischemic (Chronic) Systolic CHF, chronic (Chronic) Bilateral edema of lower extremity (Acute) Breast cancer (Acute) Closed nondisplaced fracture of base of fifth metacarpal bone of left hand (Acute) Carotid stenosis, right (Chronic) Afib (Inactive) Breast cancer (Inactive) CAD (coronary artery disease) (Inactive) CHF (congestive heart failure) (Inactive) Cardiomegaly (Inactive) Chronic renal insufficiency (Inactive) Closed nondisplaced fracture of base of fifth metacarpal bone of left hand (Inactive) NSTEMI (non-ST elevated myocardial infarction) (Inactive) Surgical History Aortocoronary bypass status (Resolved 11/18/15) History of ankle surgery (Resolved) History of mastectomy (Resolved) History of mastectomy (Inactive) Left ankle reconstruction (Inactive) S/P CABG x 4 (Inactive) Family History Mother , Age 92 Heart disease CABG Brother Heart disease Son Heart disease Social History Smoking Status: Never smoker alcohol intake: never substance use type: does not use caffeine: Yes Type: coffee, carbonated beverages what type of physical activity do you participate in: none seatbelt use: always do you feel safe at home: Yes ROS Const Const: Negative for weakness, body ache, fever(s), chills or fatigue ENT ENT: Negative for dizziness Cardio Chest Pain: No Palpitations: No Edema: Bilateral (Left greater than right) Muscle aches with walking: None Resp Respiratory: Negative for SOB with activity, SOB at rest, SOB orthopnea\SOB lying down or paroxysmal nocturnal dyspnea GI GI: Negative nausea, black,tarry stools, bright, red blood in stools or vomiting blood/hematemesis : Negative for hematuria or frequent nighttime urination/ nocturia Musc Musc: Negative for muscle aches/ myalgia Skin Skin: Negative non-healing lesions or rash Neuro Neuro: Negative for lightheadedness, near syncope, syncope, orthostatic symptoms, weakness or dizziness Endo Endo: Negative for fatigue Allergy Allergy/Immunology: Negative for rash Cardiology Exam Const Appearance: cooperative, healthy appearing, comfortable and no acute distress Orientation: alert, awake and oriented x3 Head Head: normal to inspection Mouth: oral mucosae normal Neck Neck: no JVD and normal visual inspection Carotids: normal carotid upstroke Chest Chest inspection: normal inspection of the chest and normal respiratory effort Auscultation: Bilateral: Clear to Auscultation Cardio Rate: regular rate Rhythm: regular rhythm Heart sounds: S1 normal and S2 normal; negative rub or gallop GI GI: normal to inspection Neuro General: alert, awake, oriented x3 and CN's II-XI intact bilaterally Skin Skin: no rashes or lesions noted Extremities Pulses: Normal: Right Posterior Tibial Pulse, Left Posterior Tibial Pulse, Right Radial Pulse, Left Radial Pulse Lower Extremity Edema: +2: Bilateral Psych Psychological: normal affect Supplemental Info Echocardiogram from December 2016 showed an estimated ejection fraction of 35-45%, moderate global hypokinesis of left ventricle, anterior apex as akinetic, inferior apex as akinetic, mildly dilated right ventricle, mild to moderate global right ventricular systolic dysfunction, severely enlarged left atrium, severely enlarged right atrium, moderate tricuspid valve insufficiency, RVSP of 59 mmHg, moderate pulmonary hypertension, and when compared to previous study in February 2016 no appreciable changes noted. Heart catheterization from November 2015 showed moderate severe left main coronary artery disease, 60% stenosis of left main coronary artery, 90% stenosis of LAD, 70% stenosis of LCx, 65% of RCA, and good collateral vessels from the distal RCA to distal LAD. Assessment AND Plan 1. Atherosclerosis of [place] coronary artery of [place] heart without angina pectoris I25.10 CABG x4- BRAMBILA to LAD, SVG to Ramus, SVG to OM1, SVG to RCA w/exclusion of left atrial appendage with a #35mm AtriCure Clip 11/18/15 Plan Patient denies any chest pain, arm pain, jaw pain, neck pain, shortness of breath, or fatigue suggestive of angina at this time. We will continue to monitor this. We will not make any medication regimen changes and will continue risk factor modification. 2. 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 3. Paroxysmal atrial fibrillation I48.0 DCCV 02/2016; Plan Patient's amiodarone has been decreased to 100 mg once a day after most recent PFT. She appears to be maintaining regular rhythm at this time. We will continue to monitor his through history, exam and repeat ECGs as needed. 4. Cardiomyopathy, ischemic I25.5 Plan Patient's most recent echocardiogram from December 2016 showed estimated ejection fraction of 35-45%. She states that her breathing and lower extremity 2+ edema has remained stable. We will continue current medications which include beta-rebekah and diuretic. Due to chronic kidney disease, she is not on an MERY inhibitor or ARB. Through discussion it was noted that patient is a large amount of pedicles. This may be contributing to her chronic lower extremity pedal edema. She was advised to modify her diet in order to see if her lower extremity improves. 5. Benign essential HTN I10 Plan Patient's blood pressure on the higher end of expected range. She states at other doctor's office it has been good. She will continue current medications and we will continue to monitor. 6. Hyperlipidemia E78.2 Plan She will continue with current high-dose statin medication. 7. CKD (chronic kidney disease) stage 3, GFR 30-59 ml/min N18.3 Plan She will continue follow-up with primary candy maker helper for this. Deferred to her chronic kidney disease her Lasix will not be adjusted to help with lower extremity edema at this time. Further input from candy maker helper will be greatly appreciated to help manage this. Plan Detail Other Medications New: Changed: Refilled: Additional Comments Thank you for allowing us to participate in the patients plan of care, if you have any questions please do not hesitate to call. This note was generated using a voice recognition system and there may be incorrect words, spelling or punctuation that were not noted when reviewing the office note prior to saving. Follow Up 14 Months (PFM) 6 Months (RN TRAUMA/PA) Coding Level of Care Code Off vis,est,level 3 Diagnoses Atherosclerosis of [place] coronary artery of [place] heart without angina pectoris I25.10 [place] vs. transplanted heart: [place] heart Aortocoronary bypass status Z95.1 Paroxysmal atrial fibrillation I48.0 Cardiomyopathy, ischemic I25.5 Benign essential HTN I10 Hyperlipidemia E78.2 Hyperlipidemia type: Mixed hyperlipidemia CKD (chronic kidney disease) stage 3, GFR 30-59 ml/min N18.3 Coding Level of Care Code Off vis,est,level 3 Diagnoses Atherosclerosis of [place] coronary artery of [place] heart without angina pectoris I25.10 [place] vs. transplanted heart: [place] heart Aortocoronary bypass status Z95.1 Paroxysmal atrial fibrillation I48.0 Cardiomyopathy, ischemic I25.5 Benign essential HTN I10 Hyperlipidemia E78.2 Hyperlipidemia type: Mixed hyperlipidemia CKD (chronic kidney disease) stage 3, GFR 30-59 ml/min N18.3 02/01/18 1652 <Electronically signed by Uday SANDOVAL> Date Uday SANDOVAL Cosigner Signature: Date (if applicable) CC: Roberto Knapp MD BASIC METABOLIC Collected: 12/07/2017 Status: F Source: [place] PROFILE (BMP) 10:37 AM [facility] [place] CODE TESTS RESULT OUT OF RANGE REFERENCE UNITS LAB L501.0100 74-106 mg/dL High GLU 112 Result Comment: Fasting Glucose result from 100 to 125 mg/dL suggests IMPAIRED HOMEOSTASIS per A.D.A. criteria. Please note revised GLUCOSE reference range effective 2017. LAB L501.1000 7-18 mg/dL High BUN 25 LAB L501.1100 0.55-1.02 mg/dL High CREAT,SERUM 1.92 Result Comment: The validity of the calculated GFR AND GFRAA in patients over 70 years has not been determined. Clinical correlation is essential. LAB L501.1110 >60 mL/min Low EST GFR 27 Result Comment: Non- GFR Calc LAB L501.1115 >60 mL/min Low EST GFR - AA 33 Result Comment: GFR Calc LAB L501.1300 10-20 RATIO Normal BUN/CRE 13.0 LAB L501.2200 8.5-10.1 mg/dL CA Normal 9.1 LAB L501.5300 136-145 mmol/L High NA 147 LAB L501.5600 3.5-5.1 mmol/L K Normal 3.7 LAB L501.5900 98-107 mmol/L CL Normal 107 LAB L501.6100 21.0-32.0 mmol/L Normal CO2 30.0 LAB L501.6200 5-15 Normal GAP 10 Performed By: #### L500.2500 #### [facility] [address] [place], [place], [address] COMPREHENSIVE METABOLIC Collected: 11/29/2017 Status: F Source: [place]IE PROFIL 11:03 AM [facility] [place] Order Comment: Order Date: 11/25/17 Order Info: [id number] - CMP Order Info: 3016-3 - TSH TYPE CODE TESTS RESULT OUT OF RANGE REFERENCE UNITS LAB L501.0100 74-106 mg/dL Normal GLU 84 Result Comment: Please note revised GLUCOSE reference range effective 2017. LAB L501.1000 7-18 mg/dL High BUN 26 LAB L501.1100 0.55-1.02 mg/dL High CREAT,SERUM 1.90 Result Comment: The validity of the calculated GFR AND GFRAA in patients over 70 years has not been determined. Clinical correlation is essential. LAB L501.1110 >60 mL/min Low EST GFR 27 Result Comment: Non- GFR Calc LAB L501.1115 >60 mL/min Low EST GFR - AA 33 Result Comment: GFR Calc LAB L501.1300 10-20 RATIO Normal BUN/CRE 13.7 LAB L501.1500 6.4-8.2 g/dL T Normal PROT 6.4 LAB L501.1800 3.2-5.0 g/dL Low ALB 2.9 LAB L501.1950 2.2-4.2 g/dL Normal GLOB 3.5 LAB L501.2000 0.9-2.4 RATIO Low A/G 0.8 LAB L501.2200 8.5-10.1 mg/dL CA Normal 8.7 LAB L501.4100 15-37 U/L Normal AST 18 LAB L501.4305 45-117 U/L High ALK P 175 LAB L501.4405 13-56 U/L Normal ALT 14 LAB L501.4600 0.20-1.00 mg/dL T Normal BILI 0.90 LAB L501.5300 136-145 mmol/L High NA 149 LAB L501.5600 3.5-5.1 mmol/L K Normal 3.6 LAB L501.5900 98-107 mmol/L High CL 109 LAB L501.6100 21.0-32.0 mmol/L Normal CO2 30.0 LAB L501.6200 5-15 Normal GAP 10 Performed By: #### L500.4050, L501.9598 #### [facility] [address] [place], [place], [address] THYROID STIM HORMONE Collected: 11/29/2017 Status: F Source: TIFFANIE (TSH) 11:03 AM [facility] [place] Order Comment: Order Date: 11/25/17 Order Info: [id number] - CMP Order Info: 3016-3 - TSH TYPE CODE TESTS RESULT OUT OF RANGE REFERENCE UNITS LAB L501.9520 0.358-3.74 uIU/mL Normal TSH 2.20 Performed By: #### L500.4050, L501.9520 #### [facility] [address] [place], [address] EMERGENCY DEPARTMENT Observed: 11/28/2017 Status: F Source: [place] SUMMARY 11:36 PM [facility] [place] [facility] Medical Records Department [address] [place] [address] Emergency Department Summary 11/28/17 1824 MR#: [id number] Acct: [id number] Name: KONSTANTIN GUZMAN Rep #: [id number] : 1940 77 From: Nina Maxwell DO PCP: Roberto Knapp MD Status: DEP ER - ER Visit Summary Date of Service: 11/28/17 Chief Complaint: [] Head injury History of Present Illness: The patient is a 77 F [] complaining of mechanical fall over her dog leash resulting in striking her forehead. Denies LOC. Denies neck pain. Denies headache. Does report slight right supraorbital discomfort. No other complaints at this time. Physical Examination: [] Afebrile, vital signs stable. Head is normocephalic, there is right tenderness to the right supraorbital area without swelling or deformity. Pupils are equal round reactive, extraocular movements are intact. Neck is nontender in the midline. Remainder of exam is unremarkable. Test Results: [] CT head: Negative for acute process or brain bleed. There is a slight right-sided questionable mass. Emergency Department Course and Treatment: [] Patient was evaluated for head injury in no acute bleed was identified. She does have a questionable right-sided intracranial mass for which she was encouraged to follow-up and have an MRI. Treatment Plan: [] Follow-up with PCP for MRI. Disposition: [] Discharge, stable. Impression: [] Closed head injury This note was generated with nDreams dictation software. It may contain incorrect words, spelling, and punctuation that were not noted in review of the chart prior to signing ED Disposition - Plan for ED Patient: Chief Complaint: Fall Referrals: Hero Knapp MD [Primary Care Provider] - What to do if you have Problems For any increased pain, shortness of breath, bleeding, nausea or vomiting, chest pain, or any unexpected problems, contact your Primary Care Provider. Call [facility] ([phone]) or report to the closest Emergency Room. Call 911 if necessary. 11/28/17 2336 <Electronically signed by Nina Maxwell DO> Date Nina Maxwell DO Cosigner Signature (If Indicated): Date CC: Roberto Knapp MD DISCHARGE INSTRUCTION Observed: 11/28/2017 Status: F Source: [place] 9:02 PM [facility] [place] [facility] Medical Records Department [address] [place] [address] Discharge Instruction 11/28/172100 MR#: [id number] Acct: [id number] Name: KONSTANTIN GUZMAN Rep #: [id number] : 1940 77 From: Nina Maxwell DO PCP: Roberto Knapp MD Status: REG ER ED Disposition - Plan for ED Patient: Disposition: Home or Assisted Living Chief Complaint: Fall Instructions: ED Head Injury Closed Referrals: Hero Knapp MD [Primary Care Provider] - What to do if you have Problems For any increased pain, shortness of breath, bleeding, nausea or vomiting, chest pain, or any unexpected problems, contact your Primary Care Provider. Call [facility] ([phone]) or report to the closest Emergency Room. Call 911 if necessary. 11/28/172101 <Electronically signed by Nina Maxwell DO> Date Nina Maxwell DO Cosigner Signature (If Indicated): Date CC: Roberto Knapp MD BRAIN/HEAD WITHOUT Observed: 11/28/2017 Status: F Source: [place] CONTRAST 6:23 PM [facility] [place] [facility] Imaging Services [address] [place] [address] Brain/Head without Contrast MR#: [id number] Acct: [id number] Name: KONSTANTIN GUZMAN Rep #: [id number] : 1940 F 77 From: Shad Menjivar MD PCP: Roberto Knapp MD Status: REG ER Study: Brain/Head without Contrast Date of Exam: 11/28/17 Exam# [id number] Ordering Dr: Nina Maxwell DO STUDY: CT BRAIN WITHOUT CONTRAST REASON FOR EXAM: Female, 77 years old. Fall. RADIATION DOSAGE (If Supplied By Facility): CTDIvol = ( 44.99 ) mGy, DLP = ( 745.49 ) mGycm TECHNIQUE: Transaxial CT imaging of the brain was performed without administration of intravenous contrast material. Individualized dose optimization techniques were used for this CT. COMPARISON: Nov 06 2014 2:07am. Also compared to MRI 11/05/2015. FINDINGS: Normal soft tissue structures. Normal calvarium. There is no acute traumatic injury. No evidence for intracranial hemorrhage, or contusion. A significant change has occurred in the right temporal lobe since the previous CT scan. There is no abnormal low-attenuation and possibly some mass effect. The findings could be from infarct or neoplasm. In fact there may be some high-density material along the medial aspect of the right middle cranial fossa. On careful review of the MRI from 11/05/2015, there may have been some developing edema in the same area. A low-grade neoplasm could have this appearance. Recommend MRI with contrast. No midline shift. Stable appearance of atrophy and otherwise generalized white matter disease. There is atrophy of the cerebellum. Orbits and sinuses are grossly negative. IMPRESSION: No definite acute traumatic abnormality. Abnormal appearance of the right temporal lobe since previous CT scan which may have been developing since the MRI of 11/05/2015. There is probable edema and a possible hyperdense mass. Neoplasm is a possibility. MRI with contrast is recommended. Normal size ventricles and extra-axial spaces for the patient's age. Normal white matter tracts of the cerebral hemispheres. Normal basal ganglia and thalami. Normal brainstem. Normal cerebellum. There is no intracranial hemorrhage. There are no findings of an acute ischemic infarction. Normal visualized paranasal sinuses. CT/Brain/Head without Contrast IMPRESSION: Normal unenhanced CT scan of the brain. Electronically Signed: Shad Menjivar MD at 20:23 EDT , Service support , CC: Roberto Knapp MD; Nina Maxwell DO [employer] Waste Land[employer] Technician: Signed CBC-COMPLETE BLOOD CNT Collected: 10/26/2017 Status: F Source: [place] NO DIFF 12:33 PM [facility] [place] TYPE CODE TESTS RESULT OUT OF RANGE REFERENCE UNITS LAB L100.1000 4.4-11.0 K/mm3 Low WBC 4.2 LAB L100.1200 4.2-5.4 M/mm3 Low RBC 3.47 LAB L100.1300 12.0-15.0 g/dl Low HGB 10.0 LAB L100.1400 37-47 % Low HCT 33.5 LAB L100.1500 81-99 fL Normal MCV 96.5 LAB L100.1600 27.0-32.0 pg Normal MCH 28.8 LAB L100.1700 32-36 g/gl Low MCHC 29.9 LAB L100.1810 11.6-14.6 % High RDW CV 16.6 LAB L100.1820 35.1-43.9 fl High RDW SD 59.1 LAB L100.1900 150-450 K/mm3 Normal PLT 158 LAB L100.2000 6.2-12.0 fl Normal MPV 10.9 Performed By: #### L100.0500 #### [facility] [address] [place], [address] RENAL PROFILE Collected: 10/26/2017 Status: F Source: [place] 12:33 PM [facility] [place] TYPE CODE TESTS RESULT OUT OF RANGE REFERENCE UNITS LAB L501.0100 74-106 mg/dL Normal GLU 83 Result Comment: Please note revised GLUCOSE reference range effective 2017. LAB L501.1000 7-18 mg/dL High BUN 28 LAB L501.1100 0.55-1.02 mg/dL High CREAT,SERUM 2.20 Result Comment: The validity of the calculated GFR AND GFRAA in patients over 70 years has not been determined. Clinical correlation is essential. LAB L501.1110 >60 mL/min Low EST GFR 23 Result Comment: Non- GFR Calc LAB L501.1115 >60 mL/min Low EST GFR - AA 28 Result Comment: GFR Calc LAB L501.1300 10-20 RATIO Normal BUN/CRE 12.7 LAB L501.1800 3.2-5.0 g/dL Low ALB 3.1 LAB L501.2200 8.5-10.1 mg/dL CA Normal 8.8 LAB L501.2300 2.5-4.9 mg/dL Normal PHOS 2.9 LAB L501.5300 136-145 mmol/L High NA 148 LAB L501.5600 3.5-5.1 mmol/L K Normal 3.5 LAB L501.5900 98-107 mmol/L High CL 109 LAB L501.6100 21.0-32.0 mmol/L Normal CO2 31.0 Performed By: #### L500.3600 #### [facility] [address] [place], [place], [address] PTHIN Collected: 10/26/2017 Status: F Source: [place] 12:33 PM [facility] [place] TYPE CODE TESTS RESULT OUT OF RANGE REFERENCE UNITS LAB L509.1000 18.4-80.1 pg/mL High PTHIN 161.4 Result Comment: Please Note: PTH INTACT METHOD AND REFERENCE RANGE CHANGE Effective 06/30/2017. Performed By: #### L509.1000 #### [facility] [address] [place], [address] 12 LEAD ELECTROCARDIOGRAM Observed: 09/08/2017 Status: F Source: [place] 1:53 PM [facility] Cardiovascular Services [address] [place] [address] 12 Lead EKG 09/06/17725 MR#: [id number] Acct: [id number] Name: KONSTANTIN GUZMAN Rep #: [id number] : 1940 76 From: Julito Cummings MD Attending Dr: Status: DEP ER Ordering Dr: Kota Arreguin DO Date: 09/06/17 Location: ED Sex: F C Admitted: Test Reason : SOB Blood Pressure : / mmHG Vent. Rate : 050 BPM Atrial Rate : 050 BPM P-R Int : 196 ms QRS Dur : 130 ms QT Int : 510 ms P-R-T Axes : 063 -48 052 degrees QTc Int : 464 ms Sinus bradycardia Left axis deviation Non-specific intra-ventricular conduction block Abnormal ECG Confirmed by JULITO CUMMINGS MD ([id number]), editor magazine GONSALO MATHEW ([id number]) on 09/08/2017 1:53:01 PM Referred By: MAAME Confirmed By:JULITO CUMMINGS MD 09/08/17 1353 Date Julito Cummings MD CC: Roberto Knapp MD; Kota Arreguin DO Signed EMERGENCY DEPARTMENT Observed: 09/06/2017 Status: F Source: [place] SUMMARY 4:38 PM [facility] Medical Records Department [address] [place] [address] Emergency Department Summary 09/06/1715 MR#: [id number] Acct: [id number] Name: KONSTANTIN GUZMAN Rep #: [id number] : 1940 76 From: Kota Arreguin DO PCP: Roberto Knapp MD Status: DEP ER - ER Visit Summary Date of Service: 09/06/17 Chief Complaint: Leg swelling and shortness of breath History of Present Illness: The patient is a 76 F who states that she has had leg swelling for the past several weeks. She states that she has never really had significant leg swelling in the past. She went to see Dr. Patten her candy maker helper about 1 month ago and had her Lasix decreased from 10 mg a day to 20 mg a day. She states that this was because of declining renal function. At her last registered radiation therapist in (Dr. Campbell) office her amiodarone was also decreased. Patient has noted that as her legs is swollen she has been somewhat short of breath with exertion. No chest pain. Patient has had a CABG about 2.5 years ago. Physical Examination: Afebrile vital signs are stable Gen: Well-nourished well-developed Head: Normocephalic atraumatic Eyes: Perrl EOMI ENT: TMs clear no rhinorrhea moist mucous membranes Neck: Supple no lymphadenopathy no JVD nontender CVS: Regular rate rhythm no murmurs normal S1-S2 Respiratory: No distress clear to auscultation bilaterally chest nontender Abdomen: Soft nontender nondistended normal bowel sounds no masses Back: Nontender Extremity: 3+ edema bilaterally to the level of the knee Skin: Normal color no rash Neuro: alert orientated 3 CN II-XII intact normal strength sensation reflexes gait cerebellar Psych: Normal affect normal mood Test Results: 3 shows a mild amount of pulmonary fluid. Creatinine is improved from 2.3 on August 13 down to 1.8 on every today. White count is normal. Troponin negative. Nitrate peptide 1844. EKG shows a sinus bradycardia rate of 50 with a nonspecific intraventricular conduction delay. Emergency Department Course and Treatment: Ambulated the patient she was 94% on room air. I spoke with Dr. Patten plan will be to give her 40 of Lasix IV and take her back to 40 mg. She is to see Dr. Patten next week for repeat examination and check of creatinine level. She is comfortable with this plan. Impression: 1. Lymphedema 2. Congestive heart failure 3. Chronic kidney disease This note was generated with Constant Insightation software. It may contain incorrect words, spelling, and punctuation that were not noted in review of the chart prior to signing ED Disposition - Plan for ED Patient: Disposition: Home or Assisted Living Chief Complaint: Shortness of Breath Instructions: ED CHF General, ED Lymphedema Prescriptions: Furosemide [Lasix] 40 mg PO DAILY #20 tab Referrals: Hero Knapp MD [Primary Care Provider] - Marilia Patten DO [STAFF PHYSICIAN] - (call today to arrange early follow up to have your legs and kidney function checked) What to do if you have Problems For any increased pain, shortness of breath, bleeding, nausea or vomiting, chest pain, or any unexpected problems, contact your Primary Care Provider. Call [facility] ([phone]) or report to the closest Emergency Room. Call 911 if necessary. 09/06/17 1630 <Electronically signed by Kota Arreguin DO> Date Kota Arreguin DO Cosigner Signature (If Indicated): Date CC: Roberto Knapp MD CBC W/DIFF, AUTOMATED Collected: 09/06/2017 Status: F Source: [place] 7:45 AM [facility] [place] TYPE CODE TESTS RESULT OUT OF RANGE REFERENCE UNITS LAB L100.1000 4.4-11.0 K/mm3 Normal WBC 4.5 LAB L100.1200 4.2-5.4 M/mm3 Low RBC 3.52 LAB L100.1300 12.0-15.0 g/dl Low HGB 9.9 LAB L100.1400 37-47 % Low HCT 33.5 LAB L100.1500 81-99 fL Normal MCV 95.2 LAB L100.1600 27.0-32.0 pg Normal MCH 28.1 LAB L100.1700 32-36 g/gl Low MCHC 29.6 LAB L100.1810 11.6-14.6 % High RDW CV 16.2 LAB L100.1820 35.1-43.9 fl High RDW SD 56.4 LAB L100.1900 150-450 K/mm3 Low PLT 147 LAB L100.2000 6.2-12.0 fl Normal MPV 10.2 LAB L100.2100 47-70 % High NEUT% 70.7 LAB L100.2200 19-41 % Low LY% 17.3 LAB L100.2300 0-10 % Normal MONO% 7.8 LAB L100.2400 0-5 % Normal EO% 4.0 LAB L100.2500 0-1 % Normal BASO% 0.2 LAB L100.2550 0.0-0.9 % Normal IM GRAN % 0.000 Result Comment: IG% - Immature Granulocytes (promyelocytes, myelocytes and metamyelocytes) > 1% indicates that a LEFT SHIFT is Present. LAB L100.2620 2.0-7.7 X10 3/uL Normal Absolute Neut 3.2 LAB L100.2720 0.83-4.51 X10 3/ul Low Absolute Lymph 0.77 Performed By: #### L100.0100 #### [facility] [address] [place], [address] BASIC METABOLIC Collected: 09/06/2017 Status: F Source: [place] PROFILE (BMP) 7:45 AM [facility] [place] Order Comment: 'TROP' Serial specimen #1, #2, #3, or #4: 1 TYPE CODE TESTS RESULT OUT OF RANGE REFERENCE UNITS LAB L501.0100 74-106 mg/dL Normal GLU 89 Result Comment: Please note revised GLUCOSE reference range effective 2017. LAB L501.1000 7-18 mg/dL High BUN 24 LAB L501.1100 0.55-1.02 mg/dL High CREAT,SERUM 1.81 Result Comment: The validity of the calculated GFR AND GFRAA in patients over 70 years has not been determined. Clinical correlation is essential. LAB L501.1110 >60 mL/min Low EST GFR 29 Result Comment: Non- GFR Calc LAB L501.1115 >60 mL/min Low EST GFR - AA 35 Result Comment: GFR Calc LAB L501.1255 ml/min Normal Estimated CRCL 19.64 LAB L501.1300 10-20 RATIO Normal BUN/CRE 13.3 LAB L501.2200 8.5-10 mg/dL Normal .1 CA 8.9 LAB L501.5300 136-14 mmol/L High 5 NA 147 LAB L501.5600 3.5-5. mmol/L Normal 1 K 3.8 LAB L501.5900 98-107 mmol/L High CL 113 LAB L501.6100 21.0-3 mmol/L Normal 2.0 CO2 31.0 LAB L501.6200 5-15 Low GAP 3 Performed By: #### L500.2500, L501.4010 #### [facility] [address] [place], [address] TROPONIN-I Collected: 09/06/2017 Status: F Source: [place] 7:45 AM [facility] [place] Order Comment: 'TROP' Serial specimen #1, #2, #3, or #4: 1 TYPE CODE TESTS RESULT OUT OF RANGE REFERENCE UNITS LAB L501.4010 <0.06 ng/mL Normal < 0.02 TROPONIN-I Result Comment: TROPONIN-I EXPECTED VALUES <0.05 NEGATIVE 0.06 - 0.59 AT RISK OF GA > OR = 0.60 SUGGEST GA Performed By: #### L500.2500, L501.4010 #### [facility] [address] [facility] [place], [address] BNP,B-TYPE NATRIURETIC Collected: 09/06/2017 Status: F Source: [place] PEPTIDE 7:45 AM [facility] [place] TYPE CODE TESTS RESULT OUT OF RANGE REFERENCE UNITS LAB L503.6620 0-100 pg/mL High B-TYPE 1844.3 KELL PEP Performed By: #### L503.6620 #### [facility] [address] [facility] [place], [address] CHEST PA AND LATERAL Observed: 09/06/2017 Status: F Source: [place] 7:13 AM [facility] [place] [facility] Imaging Services [address] [place] [address] Chest PA and Lateral MR#: [id number] Acct: [id number] Name: GUZMANKONSTANTIN E Rep #: [id number] : 1940 F 76 From: Pavel Macias MD PCP: Roberto Knapp MD Status: REG ER Study: Chest PA and Lateral Date of Exam: 09/06/17 Exam# [id number] Ordering Dr: Kota Arreguin DO STUDY: X-RAY CHEST REASON FOR EXAM: Female, 76 years old. Increasing shortness of breath. TECHNIQUE: PA and lateral views of the chest. COMPARISON: Comparison is made with prior study dated February 25, 2016. FINDINGS: EKG electrodes are seen. The patient is status post left mastectomy and left axillary node dissection. Blastic congestion and mild degree of CHF. There is no demonstrated pleural abnormality. Sternal cerclage wires are present from a prior sternotomy. A metallic clip is seen in the region of the left atrium. Normal mediastinum and ritika. Normal visualized pulmonary arteries. There is atherosclerotic calcification of the aortic arch with tortuosity. Cardiomegaly. There are diffuse degenerative changes of the visualized thoracic spine. Normal visualized ribs, clavicles, and shoulders. There is no demonstrated abnormality of the visualized soft tissue structures of the upper abdomen. RAD/Chest PA and Lateral IMPRESSION: Cardiomegaly and CHF. Electronically Signed: Pavel Macias MD at 8:15 EST Tel [phone], Service support , CC: Roberto Knapp MD; Kota Arreguin DO [employer] Waste Landfill Technician: Signed CARDIOLOGY VISIT Observed: 08/25/2017 Status: F Source: [place] REPORT 5:51 PM [facility] [place] [facility] [address] [place] [address]. [address] [place] [address] OFFICE VISIT Date of Service: 08/25/17 MR#: [id number] Acct: [id number] Name: KONSTANTIN GUZMAN Rep #: [id number] : 1940 Provider: REBECCA Ruby Age/Sex: 76/F Location: [facility] Status: Signed HPI HPI Chief Complaint: l Details: KONSTANTIN GUZMAN, is a 76 F who presents to the office today for a cardiovascular outpatient follow-up. She has a history of coronary artery disease status post bypass surgery in November 2015 with a BRAMBILA to the LAD, SVG to the intermedius ramus, SVG to the first obtuse marginal, and SVG to RCA, left atrial appendage ligation, atrial fibrillation status post cardioversion in February 2016, ischemic cardiomyopathy, hypertension, hyperlipidemia, and chronic renal insufficiency. After last office visit patient had PFTs that showed severe reduction in diffusing capacity. She was referred to pulmonology for appreciable input. Pt. denies chest, arm, jaw, or neck discomfort. Her exercise tolerance is stable. Pt. denies symptoms of CHF, palpitations, lightheadedness, dizziness, near syncope, or syncopal episodes. Pt. denies edema or claudication issues. Pt. denies orthopnea, PND, fever, chills, blood in urine, blood in stool, myalgia, or unexplainable fatigue. Echocardiogram from December 2016 showed an estimated ejection fraction of 35-45%, moderate global hypokinesis of left ventricle, anterior apex as akinetic, inferior apex as akinetic, mildly dilated right ventricle, mild to moderate global right ventricular systolic dysfunction, severely enlarged left atrium, severely enlarged right atrium, moderate tricuspid valve insufficiency, RVSP of 59 mmHg, moderate pulmonary hypertension, and when compared to previous study in February 2016 no appreciable changes noted. Heart catheterization from November 2015 showed moderate severe left main coronary artery disease, 60% stenosis of left main coronary artery, 90% stenosis of LAD, 70% stenosis of LCx, 65% of RCA, and good collateral vessels from the distal RCA to distal LAD. Intake Vital Signs08/25/17 Height 5 ft 1 in 08/25/17 Weight: 177 lb 08/25/17 Body Mass Index (BMI) 33.4 08/25/17 Blood Pressure 130/70 08/25/17 Blood Pressure Location Rt brachial Intake Visit Reasons: 6 M FU Production Internship Required: No Accompanied by: None Is patient in pain?: No Allergies codeine Allergy (Verified 08/25/17 10:34) Rash amlodipine besylate [From [facility]] Adverse Reaction (Verified 08/25/17 10:34) Pain in joints Medications Aspirin [Aspirin, Baby] 81 mg PO DAILY@0800 12/03/15 [History Confirmed 08/02/17] Gabapentin [Neurontin] 100 mg PO TIDCM 12/03/15 [History Confirmed 08/02/17] Levothyroxine [Synthroid] 50 mcg PO DAILY 12/03/15 [History Confirmed 08/02/17] Potassium Chloride [K-Dur] 20 meq PO BID 03/02/16 [History Confirmed 08/02/17] Pravastatin [Pravachol] 80 mg PO QHS 02/15/17 [History Confirmed 08/02/17] acetaminophen 325 mg tablet See Label Instructions PO Q4H PRN tab 06/18/17 [History Confirmed 08/02/17] ferrous sulfate 325 mg (65 mg iron) tablet,delayed release 325 mg PO BID tab 06/18/17 [History Confirmed 08/02/17] carvedilol 6.25 mg tablet 6.25 mg PO BID #180 tab 07/07/17 [Rx Confirmed 08/02/17] furosemide 20 mg tablet 20 mg PO QDAY 08/02/17 [History Confirmed 08/02/17] amiodarone 200 mg tablet 100 mg PO DAILY tab 08/16/17 [History Confirmed 08/16/17] Ejection fraction %: 35 to 39 PFSH Medical History Other secondary pulmonary hypertension (Chronic) Long-term use of high-risk medication (Chronic) Atherosclerotic heart disease of [place] coronary artery without angina pectoris (Chronic) Paroxysmal atrial fibrillation (Chronic) History of non-ST elevation myocardial infarction (NSTEMI) (Chronic) 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, bilateral (Chronic) Pulmonary hypertension, secondary (Chronic) Benign essential HTN (Chronic) HLD (hyperlipidemia) (Chronic) CKD (chronic kidney disease) stage 3, GFR 30-59 ml/min (Chronic) Hypokalemia (Acute) Thyroid disease (Chronic) Cardiomyopathy, ischemic (Chronic) Systolic CHF, chronic (Chronic) Bilateral edema of lower extremity (Acute) Breast cancer (Acute) Closed nondisplaced fracture of base of fifth metacarpal bone of left hand (Acute) Carotid stenosis, right (Chronic) Afib (Inactive) Breast cancer (Inactive) CAD (coronary artery disease) (Inactive) CHF (congestive heart failure) (Inactive) Cardiomegaly (Inactive) Chronic renal insufficiency (Inactive) Closed nondisplaced fracture of base of fifth metacarpal bone of left hand (Inactive) NSTEMI (non-ST elevated myocardial infarction) (Inactive) Surgical History Aortocoronary bypass status (Resolved 11/18/15) History of mastectomy (Resolved) History of mastectomy (Inactive) Left ankle reconstruction (Inactive) S/P CABG x 4 (Inactive) Family History Mother Heart disease Brother Heart disease Son Heart disease Social History Smoking Status: Never smoker alcohol intake: never substance use type: does not use caffeine: Yes Type: coffee what type of physical activity do you participate in: none seatbelt use: always do you feel safe at home: Yes ROS Const Const: Negative for fatigue, weakness, body ache, fever(s) or chills ENT ENT: Negative for dizziness Cardio Chest Pain: No Palpitations: Positive for No Edema: Bilateral (unchanged) Muscle aches with walking: None Resp Respiratory: Negative for SOB with activity, SOB at rest, SOB orthopnea\SOB lying down or paroxysmal nocturnal dyspnea GI GI: Negative nausea, black,tarry stools, bright, red blood in stools or vomiting blood/hematemesis : Negative for hematuria or frequent nighttime urination/ nocturia Musc Musc: Negative for muscle aches/ myalgia Neuro Neuro: Negative for weakness, Negative for dizziness, Negative for lightheadedness, Negative for near syncope, Negative for syncope, Negative for orthostatic symptoms Endo Endo: Negative for fatigue Cardiology Exam Const Appearance: cooperative, healthy appearing, comfortable and no acute distress Orientation: alert, awake and oriented x3 Head Head: normal to inspection Mouth: oral mucosae normal Neck Neck: no JVD and normal visual inspection Carotids: normal carotid upstroke Chest Chest inspection: normal inspection of the chest and normal respiratory effort Auscultation: Bilateral: Clear to Auscultation Cardio Rate: regular rate Rhythm: regular rhythm Heart sounds: S1 normal and S2 normal; negative rub or gallop GI GI: normal to inspection Neuro General: alert, awake, oriented x3 and CN's II-XI intact bilaterally Skin Skin: no rashes or lesions noted Extremities Pulses: Normal: Right Posterior Tibial Pulse, Left Posterior Tibial Pulse, Right Radial Pulse, Left Radial Pulse Lower Extremity Edema: +2: Bilateral Psych Psychological: normal affect Assessment AND Plan 1. Atherosclerosis of [place] coronary artery of [place] heart without angina pectoris I25.10 CABG x4- BRAMBILA to LAD, SVG to Ramus, SVG to OM1, SVG to RCA w/exclusion of left atrial appendage with a #35mm AtriCure Clip 11/18/15 LORI Martinez Patient denies any chest pain, arm pain, jaw pain, neck pain, shortness of breath, or fatigue suggestive of angina at this time. We will continue to monitor this. We will not make any medication regimen changes and will continue risk factor modification. 2. Valvular heart disease I38 LORI Martinez Patient's most recent echocardiogram is noted above. She denies any shortness of breath. Her activity level has remained stable. We will continue to monitor this. We will not make any medication regimen changes. 3. Paroxysmal atrial fibrillation I48.0 DCCV 02/2016; LORI Martinez Patient's amiodarone has been decreased to 100 mg once a day after most recent PFT. She appears to be maintaining regular rhythm at this time. We will continue to monitor his through history, exam and repeat ECGs as needed. 4. Cardiomyopathy, ischemic I25.5 LORI Martinez Patient's most recent echocardiogram from December 2016 showed estimated ejection fraction of 35-45%. She states that her breathing and lower extremity 2+ edema has remained stable. We will continue current medications which include beta-rebekah and diuretic. Due to chronic kidney disease she is not on an MERY inhibitor or ARB. 5. Essential hypertension I10 LORI Martinez Patient blood pressure initially was elevated at 168/80. Upon read fact it improved to 130/70. We discussed further that if blood pressure is noted to be elevated consistently that we would add Norvasc 2.5 mg once a day. Her allergy list does include Norvasc, but patient does not recollect this. She denies any known hives, itching, shortness of breath, or facial swelling. Thus, an attempt with Norvasc would be made if needed. Patient also states several sources of psychosocial stressors at home. This may contribute to elevated blood pressure. 6. Hyperlipidemia E78.2 LORI Martinez Patient has not had any recent lipid panel drawn. She was reminded to obtain lipid and liver profile that was ordered in April 2017. 7. Long-term use of high-risk medication Z79.899 LORI Martinez Patient will continue with reduced amiodarone dose. We will continue to monitor this going forward with liver profile, thyroid testing, chest x-ray, and repeat PFTs. Plan Detail Additional Comments - LORI Castañeda Patient will keep December [address] Campbell for further evaluation. Discussed the above patient with Dr. Campbell, he agrees with the plan of care. Thank you for allowing us to participate in the patients plan of care, if you have any questions please do not hesitate to call. This note was generated using a voice recognition system and there may be incorrect words, spelling or punctuation that were not noted when reviewing the office note prior to saving. Coding Level of Care Code Off vis,est,level 3 Diagnoses Atherosclerosis of [place] coronary artery of [place] heart without angina pectoris I25.10 [place] vs. transplanted heart: [place] heart Valvular heart disease I38 Paroxysmal atrial fibrillation I48.0 Cardiomyopathy, ischemic I25.5 Essential hypertension I10 Hypertension type: essential hypertension Hyperlipidemia E78.2 Hyperlipidemia type: Mixed hyperlipidemia Long-term use of high-risk medication Z79.899 Coding Level of Care Code Off vis,est,level 3 Diagnoses Atherosclerosis of [place] coronary artery of [place] heart without angina pectoris I25.10 [place] vs. transplanted heart: [place] heart Valvular heart disease I38 Paroxysmal atrial fibrillation I48.0 Cardiomyopathy, ischemic I25.5 Essential hypertension I10 Hypertension type: essential hypertension Hyperlipidemia E78.2 Hyperlipidemia type: Mixed hyperlipidemia Long-term use of high-risk medication Z79.899 08/25/17 1140 <Electronically signed by Uday BECKFORDC> Date Uday BECKFORDC 08/25/17 1751<Electronically signed by Everardo Campbell MD> Cosign Signature: Date (if applicable) Everardo Campbell MD CC: Roberto Knapp MD PULMONARY FUNCTION Observed: 08/15/2017 Status: F Source: [place] TEST 11:55 AM [facility] [place] [facility] Pulmonary Services/Neurology [address] [place] [address] MR#: [id number] Acct: [id number] Name: KONSTANTIN GUZMAN Rep #: [id number] : 1940 76 From: Bijan Mcfadden DO Referring Dr: Uday Ruby RN TRAUMA Status: REG CLI Ordering Dr: Date: Location: PSN Sex: F C INTRODUCTION: The patient is a 76-year-old female currently under the care of Uday ruby RN TRAUMA that presents for pulmonary function testing secondary to a diagnosis of high risk medication use. Respiratory therapy reports good patient effort and reports no other concerns. Bronchodilators were used during testing. INTERPRETATION: Forced expiration spirometry demonstrates no evidence of a large airways obstructive ventilatory defect. There was no significant response to aerosolized bronchodilators, based upon strict ATS criteria. Spirograms of good quality and plateau normally. Body plus tomography was performed and reveals lung volumes to be within normal limits. Diffusing capacity by single breath CO is severely reduced at 44% of predicted. When compared to previous pulmonary function studies dated July 2016 there has been a significant reduction in the patient's diffusing capacity. IMPRESSION: These pulmonary function studies demonstrate the presence of an isolated severe reduction in diffusing capacity, which could be related to an underlying pulmonary vascular disorder such as pulmonary hypertension. Since PFTs were last completed in July 2016, there has been a significant reduction in the patient's diffusing capacity. Clinical correlation is recommended. 08/15/17 1155 <Electronically signed by Bijan Mcfadden DO> Date Bijan Mcfadden DO CC: RN TRAUMA Uday Ruby; Roberto Knapp MD Date Dictated: 08/15/17 1150 Date Transcribed: 08/15/171149 [employer] Landfill Technician: ROSENDA Signed CBC-COMPLETE BLOOD CNT Collected: 08/13/2017 Status: F Source: [place] NO DIFF 2:16 PM [facility] [place] TYPE CODE TESTS RESULT OUT OF RANGE REFERENCE UNITS LAB L100.1000 4.4-11.0 K/mm3 Normal WBC 4.9 LAB L100.1200 4.2-5.4 M/mm3 Low RBC 3.47 LAB L100.1300 12.0-15.0 g/dl Low HGB 10.0 LAB L100.1400 37-47 % Low HCT 33.1 LAB L100.1500 81-99 fL Normal MCV 95.4 LAB L100.1600 27.0-32.0 pg Normal MCH 28.8 LAB L100.1700 32-36 g/gl Low MCHC 30.2 LAB L100.1810 11.6-14.6 % High RDW CV 15.5 LAB L100.1820 35.1-43.9 fl High RDW SD 51.4 LAB L100.1900 150-450 K/mm3 Normal PLT 179 LAB L100.2000 6.2-12.0 fl Normal MPV 11.6 Performed By: #### L100.0500 #### [facility] [address] [place], [address] RENAL PROFILE Collected: 08/13/2017 Status: F Source: [place] 2:16 PM [facility] [place] TYPE CODE TESTS RESULT OUT OF RANGE REFERENCE UNITS LAB L501.0100 74-106 mg/dL Normal GLU 86 LAB L501.1000 7-18 mg/dL High BUN 27 LAB L501.1100 0.55-1.02 mg/dL High 2.30 CREAT,SERUM Result Comment: The validity of the calculated GFR AND GFRAA in patients over 70 years has not been determined. Clinical correlation is essential. LAB L501.1110 >60 mL/min Low EST GFR 22 Result Comment: Non- GFR Calc LAB L501.1115 >60 mL/min Low EST GFR - AA 26 Result Comment: GFR Calc LAB L501.1300 10-20 RATIO Normal BUN/CRE 11.7 LAB L501.1800 3.2-5.0 g/dL Low ALB 2.9 LAB L501.2200 8.5-10.1 mg/dL CA Normal 8.5 LAB L501.2300 2.5-4.9 mg/dL Normal PHOS 2.7 LAB L501.5300 136-145 mmol/L NA Normal 144 LAB L501.5600 3.5-5.1 mmol/L Low K 3.3 LAB L501.5900 98-107 mmol/L CL Normal 106 LAB L501.6100 21.0-32.0 mmol/L Normal CO2 29.0 Performed By: #### L500.3600 #### [facility] [address] [place], [address] PTHIN Collected: 08/13/2017 Status: F Source: [place] 2:16 PM [facility] [place] TYPE CODE TESTS RESULT OUT OF RANGE REFERENCE UNITS LAB L509.1000 18.4-80.1 pg/mL High PTHIN 163.2 Result Comment: Please Note: PTH INTACT METHOD AND REFERENCE RANGE CHANGE Effective 06/30/2017. Performed By: #### L509.1000 #### [facility] [address] [place], [address] CBC W/DIFF, AUTOMATED Collected: 07/20/2017 Status: F Source: [place] 5:01 PM [facility] [place] Order Comment: Order Date: 07/20/17 Order Info: [id number] - CBCD Order Info: [id number] - SED TYPE CODE TESTS RESULT OUT OF RANGE REFERENCE UNITS LAB L100.1000 4.4-11.0 K/mm3 Normal WBC 4.7 LAB L100.1200 4.2-5.4 M/mm3 Low RBC 3.67 LAB L100.1300 12.0-15.0 g/dl Low HGB 10.3 LAB L100.1400 37-47 % Low HCT 35.3 LAB L100.1500 81-99 fL Normal MCV 96.2 LAB L100.1600 27.0-32.0 pg Normal MCH 28.1 LAB L100.1700 32-36 g/gl Low MCHC 29.2 LAB L100.1810 11.6-14.6 % High RDW CV 15.8 LAB L100.1820 35.1-43.9 fl High RDW SD 53.4 LAB L100.1900 150-450 K/mm3 Normal PLT 204 LAB L100.2000 6.2-12.0 fl Normal MPV 11.5 LAB L100.2100 47-70 % High NEUT% 71.2 LAB L100.2200 19-41 % Low LY% 17.1 LAB L100.2300 0-10 % Normal MONO% 7.5 LAB L100.2400 0-5 % Normal EO% 3.4 LAB L100.2500 0-1 % Normal BASO% 0.6 LAB L100.2550 0.0-0.9 % Normal IM GRAN % 0.200 Result Comment: IG% - Immature Granulocytes (promyelocytes, myelocytes and metamyelocytes) > 1% indicates that a LEFT SHIFT is Present. LAB L100.2620 2.0-7.7 X10 3/uL Normal Absolute Neut 3.3 LAB L100.2720 0.83-4.51 X10 3/ul Low Absolute Lymph 0.80 Performed By: #### L100.0100, L101.9900, L500.4050, L501.2400, L501.2450, L501.9520, L506.1000 #### [facility] [address] [facility] [place], [place], [address] ERYTHROCYTE SED RATE Collected: 07/20/2017 Status: F Source: [place] 5:01 [facility] [place] REPOSITORY Order Comment: Order Date: 07/20/17 Order Info: [id number] - CBCD Order Info: [id number] - SED TYPE CODE TESTS RESULT OUT OF RANGE REFERENCE UNITS LAB L102.0000 0-30 mm/hr Normal SED RATE 24 Performed By: #### L100.0100, L101.9900, L500.4050, L501.2400, L501.2450, L501.9520, L506.1000 #### [facility] [address] [facility] [place], [place], [address] COMPREHENSIVE METABOLIC Collected: 07/20/2017 Status: F Source: [facility] 5:01 [facility] [place] REPOSITORY Order Comment: Order Date: 07/20/17 Order Info: [id number] - CMP Order Info: [id number] - POPPY Order Info: [id number] - LIPASE Order Info: [id number] - TSH TYPE CODE TESTS RESULT OUT OF RANGE REFERENCE UNITS LAB L501.0100 70-110 mg/dL Normal GLU 98 LAB L501.1000 7-18 mg/dL High BUN 23 LAB L501.1100 0.55-1.02 mg/dL High 1.95 CREAT,SERUM Result Comment: The validity of the calculated GFR AND GFRAA in patients over 70 years has not been determined. Clinical correlation is essential. LAB L501.1110 >60 mL/min Low EST GFR 26 Result Comment: Non- GFR Calc LAB L501.1115 >60 mL/min Low EST GFR - AA 32 Result Comment: GFR Calc LAB L501.1300 10-20 RATIO Normal BUN/CRE 11.8 LAB L501.1500 6.4-8.2 g/dL T Normal PROT 6.8 LAB L501.1800 3.4-5.0 g/dL Low ALB 3.0 Result Comment: Please note revised Albumin AND Globulin reference range effective 2017. LAB L501.1950 2.2-4.2 g/dL Normal GLOB 3.8 LAB L501.2000 0.9-2.4 RATIO Low A/G 0.8 LAB L501.2200 8.5-10.1 mg/dL Normal CA 8.8 LAB L501.4100 15-37 U/L Normal AST 22 LAB L501.4305 45-117 U/L High ALK P 168 LAB L501.4405 12-78 U/L Normal ALT 18 LAB L501.4600 0.20-1.00 mg/dL Normal T BILI 0.70 LAB L501.5300 136-145 mmol/L Normal NA 144 LAB L501.5600 3.5-5.1 mmol/L Normal K 4.1 LAB L501.5900 98-107 mmol/L High CL 108 LAB L501.6100 21.0-32.0 mmol/L Normal CO2 29.0 LAB L501.6200 5-15 Normal GAP 7 Performed By: #### L100.0100, L101.9900, L500.4050, L501.2400, L501.2450, L501.9520, L506.1000 #### [facility] [address] [place], [place], [address] AMYLASE Collected: 07/20/2017 Status: F Source: [place] 5:01 PM [facility] [place] Order Comment: Order Date: 07/20/17 Order Info: 0786-1 - CMP Order Info: 1798-8 - POPPY Order Info: 3040-3 - LIPASE Order Info: 3016-3 - TSH TYPE CODE TESTS RESULT OUT OF RANGE REFERENCE UNITS LAB L501.2400 25-115 U/L Normal POPPY 50 Performed By: #### L100.0100, L101.9900, L500.4050, L501.2400, L501.2450, L501.9520, L506.1000 #### [facility] [address] [place], [address] LIPASE Collected: 07/20/2017 Status: F Source: [place] 5:01 PM [facility] [place] Order Comment: Order Date: 07/20/17 Order Info: 0786-1 - CMP Order Info: 17902-16 - POPPY Order Info: 3040-3 - LIPASE Order Info: 3016-3 - TSH TYPE CODE TESTS RESULT OUT OF RANGE REFERENCE UNITS LAB L501.2450 73-393 U/L Normal LIPASE 178 Performed By: #### L100.0100, L101.9900, L500.4050, L501.2400, L501.2450, L501.9520, L506.1000 #### [facility] [address] [place], [address] THYROID STIM HORMONE Collected: 07/20/2017 Status: F Source: [place] (TSH) 5:01 PM [facility] [place] Order Comment: Order Date: 07/20/17 Order Info: 0786-1 - CMP Order Info: 17902-16 - POPPY Order Info: 3040-3 - LIPASE Order Info: 3016-3 - TSH TYPE CODE TESTS RESULT OUT OF RANGE REFERENCE UNITS LAB L501.9520 0.358-3.74 uIU/mL High TSH 3.86 Performed By: #### L100.0100, L101.9900, L500.4050, L501.2400, L501.2450, L501.9520, L506.1000 #### [facility] [address] [place], [address] VITAMIN D,25 HYDROXY Collected: 07/20/2017 Status: F Source: [place] 5:01 PM [facility] [place] Order Comment: Order Date: 07/20/17 Order Info: 14849-1 - VITD25 TYPE CODE TESTS RESULT OUT OF RANGE REFERENCE UNITS LAB L506.1000 ng/mL Normal Vitamin D 26.1 25-OH Result Comment: Vitamin D 25(OH) Status Range Deficiency <20 ng/mL (50nmol/L) Insuffciency 20 - 30 ng/mL (50 - 75 nmol/L) Sufficiency 30 - 100 ng/mL (75 - 250 nmol/L) Toxicity >100 ng/mL (>250 nmol/L) Performed By: #### L100.0100, L101.9900, L500.4050, L501.2400, L501.2450, L501.9520, L506.1000 #### [facility] [address] [place], [address] ALLERGIES ALLERGIES DATE TYPE / CODE NAME / CODE REACTION SEVERITY SOURCE 02/01/2018 Drug amlodipine Pain in joints Unknown [place] Allergy/416 besylate/[id number] [facility] 809811[facility] 02/01/2018 Drug codeine/[id number] Rash Unknown [place] Allergy/416 0(RXNORM) [facility] 005626([facility] ED [facility]) Repository ENCOUNTERS ENCOUNTERS ADMIT/DISCHARGE ACCOUNT NUMBER ADMITTING ENCOUNTER LOCATION SOURCE CLASS 06/28/2018 [id number] [facility] Repository 06/24/2018 [id number] [facility] ding:MTLAB Repository 06/08/2018 [id number] [facility] ding:LAB.FUT Repository URE 05/17/[id number] [facility] ding:US Repository 04/01/[id number] [facility] ding:MTLAB Repository 02/01/2018/02/02/20 [id number] Ambulatory BMSBuilding: [place] [facility] Repository 01/10/2018 [id number] [facility] ding:LAB.FUT Repository URE 12/07/2017 [id number] [facility] ding:LAB.FUT Repository URE 11/29/[id number] [facility] ding:MTLAB Repository 11/28/2017/11/29/19 [id number] Emergency [address] ding:ED Repository 10/26/[id number] [facility] ding:LAB.FUT Repository URE 09/06/2017/09/06/19 [id number] Emergency [address] ding:ED Repository 08/25/2017 [id number] Ambulatory BMSBuilding: [place] [facility] Repository 08/25/2017 [id number] Ambulatory BMSBuilding: [place] [facility] Repository 08/25/2017/08/25/19 [id number] Ambulatory BMSBuilding: [place] [facility] Repository 08/18/[id number] [facility] ding:LAB.FUT Repository URE 08/15/2017 [id number] Ambulatory BMSBuilding: [place] [facility] Repository 08/13/[id number] [facility] ding:PSN Repository 08/06/2017 [id number] Ambulatory BMSBuilding: [place] [facility] Repository 08/02/2017 [id number] Ambulatory BMSBuilding: [place] [facility] Repository 07/20/[id number] [facility] ding:MTLAB Repository PAYERS PAYERS ENCOUNTER GUARANTOR PAYER SUBSCRIBER SOURCE 06/28/2018 [place]in [place]: Primary [place]: [employer] Insurance:MedicarePol [id number] System [place] icy Number: [place] Date: [address]Xil: (hp) 06/28/2018 Secondary Konstantin [place]: [employer] Insurance:MedicarePol [id number] System icy Number: Effective Repository Date: 06/28/2018 Tertiary Konstantin [place]: [facility] Insurance:MedicaidPol [id number] System icy Number: Effective Repository Date: 06/24/2018 KONSTANTIN Javier Primary KONSTANTIN [place] [id number] Insurance:MEDICARE ADKINSDOB: [facility] [id number] Number[place] Repository [address]Ggt: 330 [id number] [phone] () Date:2018-06-24 06/24/2018 Secondary KONSTANTIN Javier [place] Insurance:MEDICAIDPol ADKINSDOB: [facility] icy Number: [id number] Hospital [id number] Repository Date:2018-06-24 06/24/2018 Tertiary NOT GIVENUNK [place] Insurance:SELF PAY [facility] Number: Effective Repository Date:2018-06-24 06/08/2018 KONSTANTIN Javier Primary KONSTANTIN [place] [id number] Insurance:MEDICARE ADKINSDOB: [facility] [id number] [place] Number: Repository [address]Shr: 330 [id number] [phone] (HP) Date:2018-06-06 06/08/2018 Secondary KONSTANTIN Javier [place] Insurance:MEDICAIDPol ADKINSDOB: [facility] icy Number: [id number] Hospital [id number] Repository Date:2018-06-06 06/08/2018 Tertiary NOT GIVENUNK [place] Insurance:SELF PAY [facility] Number: Effective Repository Date:2018-06-06 05/17/2018 KONSTANTIN Javier Primary KONSTANTIN [place] [id number] Insurance:MEDICARE ADKINSDOB: [facility] [id number] [place] Number: Repository [address]Kfp: 330 [id number] [phone] () Date:2018-03-04 05/17/2018 Secondary K[place]STANTIN [place] Insurance:MEDICAIDPol ADKINSDOB: [facility] icy Number: [id number] Hospital [id number] Repository Date:2018-03-04 05/17/2018 Tertiary NOT GIVENUNK [place] Insurance:SELF PAY [facility] Number: Effective Repository Date:2018-03-04 04/01/2018 KONSTANTIN Javier Primary KONSTANTIN [place] [id number] Insurance:MEDICARE ADKINSDOB: [facility] [id number] [place] Number: Repository [address]Bwq: 330 [id number] [phone] (HP) Date:2018-03-11 04/01/2018 Secondary KONSTANTIN E [place] Insurance:MEDICAIDPol ADKINSDOB: [facility] icy Number: [id number] Hospital [id number] Repository Date:2018-03-11 04/01/2018 Tertiary NOT GIVENUNK [place] Insurance:SELF PAY [facility] Number: Effective Repository Date:2018-03-11 02/01/2018 KONSTANTIN Javier Primary KONSTANTIN [place] [id number] Insurance:MEDICARE ADKINSDOB: [facility] [id number] [place] Number: Repository [address]Fnj: 330 [id number] [phone] (HP) Date:2018-01-24 02/01/2018 Secondary KONSTANTIN Javier [place] Insurance:MEDICAIDPol ADKINSDOB: [facility] icy Number: [id number] Hospital [id number] Repository Date:2018-01-24 02/01/2018 Tertiary NOT GIVENUNK [place] Insurance:SELF PAY [facility] Number: Effective Repository Date:2018-02-01 01/10/2018 KONSTANTIN E Primary KONSTANTIN [place] [id number] Insurance:MEDICARE ADKINSDOB: [facility] [id number] [place] Number: Repository [address]Uqa: 330 [id number] [phone] (HP) Date:2017-10-28 01/10/2018 Secondary KONSTANTIN E [place] Insurance:MEDICAIDPol ADKINSDOB: [facility] icy Number: [id number] Hospital [id number] Repository Date:2017-10-28 01/10/2018 Tertiary NOT GIVENUNK [place] Insurance:SELF PAY [facility] Number: Effective Repository Date:2017-10-28 12/07/2017 KONSTANTIN E Primary KONSTANTIN [place] [id number] Insurance:MEDICARE ADKINSDOB: [facility] PART A [facility] [id number] Number: Repository 10[address]Znz: 330 [id number] [phone] (HP) Date:2017-12-02 12/07/2017 Secondary KONSTANTIN Javier [place] Insurance:MEDICAIDPol ADKINSDOB: [facility] icy Number: [id number] Hospital [id number] Repository Date:2017-12-02 12/07/2017 Tertiary NOT GIVENUNK [place] Insurance:SELF [facility]Y [facility] Effective Repository Date:2017-12-02 11/29/2017 KONSTANTIN Javier Primary KONSTANTIN [place] [id number] Insurance:MEDICARE ADKINSDOB: [facility] PART A [facility] [id number] Number: Repository [address]Bif: 330 [id number] [phone] () Date:2017-11-29 11/29/2017 Secondary KONSTANTIN Javier [place] Insurance:MEDICAIDPol ADKINSDOB: [facility] icy Number: [id number] Hospital [id number] Repository Date:2017-11-29 11/29/2017 Tertiary NOT GIVENUNK [place] Insurance:SELF PAY [facility] Number: Effective Repository Date:2017-11-29 11/28/2017 KONSTANTIN Javier Primary KONSTANTIN Javier [place] [id number] Insurance:MEDICARE ADKINSDOB: [facility] PART A [facility] [id number] Number: Repository [address]Tqo: 330 [id number] [phone] () Date:2017-11-28 11/28/2017 Secondary KONSTANTIN Javier [place] Insurance:MEDICAIDPol ADKINSDOB: [facility] icy Number: [id number] Hospital [id number] Repository Date:2017-11-28 11/28/2017 Tertiary NOT GIVENUNK [place] Insurance:SELF PAY [facility] Number: Effective Repository Date:2017-11-28 10/26/2017 KONSTANTIN E Primary KONSTANTIN [place] [id number] Insurance:MEDICARE ADKINSDOB: [facility][1] A [facility] [id number], [place] Number: Repository [address]Mgr: 330 [id number] [phone] () Date:2017-10-11 10/26/2017 Secondary KONSTANTIN Javier [place] Insurance:MEDICAIDPol ADKINSDOB: [facility] icy Number: [id number] Hospital [id number] Repository Date:2017-10-11 10/26/2017 Tertiary NOT GIVENUNK [place] Insurance:SELF PAY [facility] Number: Effective Repository Date:2017-10-11 09/06/2017 KONSTANTIN E Primary KONSTANTIN [place] [id number] Insurance:MEDICARE ADKINSDOB: [facility][1] A [facility] [id number], [place] Number: Repository 83[address]Qip: 330 [id number] [phone] () Date:2017-09-06 09/06/2017 Secondary KONSTANTIN Javier [place] Insurance:MEDICAIDPol ADKINSDOB: [facility] icy Number: [id number] Hospital [id number] Repository Date:2017-09-06 09/06/2017 Tertiary NOT GIVENUNK [place] Insurance:SELF PAY [facility] Number: Effective Repository Date:2017-09-06 08/25/2017 Konstantin Javier Primary Konstantin Javier [place] [id number] Insurance:MEDICARE AdkinsDOB: [facility] A [facility] [id number][place] Number: Repository [address]Uiu: 330 [id number] [phone] () Date:2017-08-05 08/25/2017 Secondary Konstantin Javier [place] Insurance:MEDICAIDPol AdkinsDOB: [facility] icy Number: [id number] Hospital [id number] Repository Date:2017-08-05 08/25/2017 Tertiary NOT GIVENUNK [place] Insurance:SELF PAY [facility] Number: Effective Repository Date:2017-08-05 08/25/2017 Konstantin E Primary Konstantin E [place] [id number] Insurance:MEDICARE AdkinsDOB: [facility] [id number] Number: Repository [address]Hbo: 330 [id number] [phone] () Date:2017-08-25 08/25/2017 Secondary Konstantin E [place] Insurance:MEDICAIDPol AdkinsDOB: [facility] icy Number: [id number] Hospital [id number] Repository Date:2017-08-25 08/25/2017 Tertiary NOT GIVENUNK [place] Insurance:SELF PAY [facility] Number: Effective Repository Date:2017-08-25 08/25/2017 KONSTANTIN Javier Primary KONSTANTIN [place] [id number] Insurance:MEDICARE ADKINSDOB: [facility] [id number], [place] Number: Repository [address]Cxd: 330 [id number] [phone] () Date:2017-08-05 08/25/2017 Secondary KONSTANTIN E [place] Insurance:MEDICAIDPol ADKINSDOB: [facility] ic Number: [id number] Hospital [id number] Repository Date:2017-08-05 08/25/2017 Tertiary NOT GIVENUNK [place] Insurance:SELF PAY [facility] Number: Effective Repository Date:2017-08-05 08/18/2017 Konstantin Javier Primary Konstantin [place] [id number] Insurance:MEDICARE AdkinsDOB: [facility] [id number], [place] Number: Repository [address]Lmv: 330 [id number] [phone] (HP) Date:2017-08-18 08/18/2017 Secondary Konstantin E [place] Insurance:MEDICAIDPol AdkinsDOB: [facility] icy Number: [id number] Hospital [id number] Repository Date:2017-08-18 08/18/2017 Tertiary NOT GIVENUNK [place] Insurance:SELF PAY [facility] Number: Effective Repository Date:2017-08-18 08/15/2017 KONSTANTIN Javier Primary KONSTANTIN [place] [id number] Insurance:MEDICARE ADKINSDOB: [facility][1] A [facility] [id number], [place] Number: Repository [address]Zmk: [phone] [id number] [phone] () Date:2004-10-10 08/15/2017 Secondary KONSTANTIN E [place] Insurance:MEDICAIDPol ADKINSDOB: [facility] icy Number: [id number] Hospital [id number] Repository Date:2017-02-15 08/15/2017 Tertiary NOT GIVENUNK [place] Insurance:SELF PAY [facility] Number: Effective Repository Date:2017-08-15 08/13/2017 Konstantin E Primary Konstantin E [place] [id number] Insurance:MEDICARE AdkinsDOB: [facility] A [facility] [id number] Number: Repository [address]Dvv: 330 [id number] [phone] () Date:2004-10-10 08/13/2017 Secondary Konstantin E [place] Insurance:MEDICAIDPol AdkinsDOB: [facility] ic Number: [id number] Hospital [id number] Repository Date:2017-02-15 08/13/2017 Tertiary NOT GIVENUNK [place] Insurance:SELF PAY [facility] Number: Effective Repository Date:2017-04-29 08/06/2017 Konstantin E Primary Konstantin Concepcion [place] [id number] Insurance:MEDICARE AdkinsDOB: [facility] A [facility] [id number], [place] Number: Repository [address]Qhg: 330 [id number] [phone] () Date:2017-06-12 08/06/2017 Secondary Konstantin E [place] Insurance:MEDICAIDPol AdkinsDOB: [facility] icy Number: [id number] Hospital [id number] Repository Date:2017-06-12 08/06/2017 Tertiary NOT GIVENUNK [place] Insurance:SELF PAY [facility] Number: Effective Repository Date:2017-06-12 08/02/2017 Konstantin E Primary Konstantin [place] [id number] Insurance:MEDICARE AdkinsDOB: [facility] PART A [facility] [id number], [place] Number: Repository [address]Xot: [phone] [id number] [phone] (HP) Date:2017-08-02 08/02/2017 Secondary Konstantin E [place] Insurance:MEDICAIDPol AdkinsDOB: [facility] icy Number: [id number] Hospital [id number] Repository Date:2017-08-02 08/02/2017 Tertiary NOT GIVENUNK [place] Insurance:SELF PAY [facility] Number: Effective Repository Date:2017-08-02 07/20/2017 Konstantin E Primary Konstantin E [place] [id number] Insurance:MEDICARE AdkinsDOB: [facility] [id number] Number: Repository [address]Fbm: [phone] [id number] [phone] (HP) Date:2017-07-20 07/20/2017 Secondary Konstantin E [place] Insurance:MEDICAIDPol AdkinsDOB: [facility] ic Number: [id number] Hospital [id number] Repository Date:2017-07-20 07/20/2017 Tertiary NOT GIVENUNK [place] Insurance:SELF PAY [facility] Number: Effective Repository Date:2017-07-20
== END ==
PROVIDERS: Family Provider Family Medicine; PCP Family Medicine; Referring Provider Internal Medicine Nephrology; Visit Provider Internal Medicine Nephrology
DX: N18.4 Chronic kidney disease, stage 4 (severe) (principal); E61.1 Iron deficiency
CPT/HCPCS: 36415; 80069; 81002; 82043; 82306; 82570; 83970; 84156; 85027

== ENCOUNTER → 2018-06-24 10:22 | Outpatient (CLI) | payer MEDICARE, MEDICAID, SELFPAY ==
[2018-02-01 16:04] VITALS: BMI 32.4
[2018-06-24 13:32] LABS: Erythrocyte Sedimentation Rate 21 mm/hr (0-30)
[2018-06-24 13:50] LABS: CRP < 2.90 mg/L (0.0-3.0); Creatinine, Serum 1.84 mg/dL (0.55-1.02); EST Glomerular Filtration Rate 28 mL/min (>60); Est Glom Filt Rate - Afr Amer 34 mL/min (>60)
--- OUTSIDE RECORDS SUMMARY | 2018-08-10 01:27 | XMS RPT_ITS ---
:1940 Author Organization OHIP Support Name Relationship Address Phone KENNETH GUZMANRY Unavailable Unavailable + [place] [address] GUZMAN, ERMELINDA Unavailable Unavailable + [place] [address] R Unavailable Unavailable Unavailable GUZMAN, MATT Unavailable Unavailable + [place] [address] GUZMAN, ERMELINDA Unavailable Unavailable + [place] [address] R Unavailable Unavailable Unavailable GUZMAN, MATT Unavailable [address] + [place] [address] GUZMAN, ERMELINDA Unavailable Unavailable + [place] [address] R Unavailable Unavailable Unavailable GUZMAN, MATT Unavailable [address] + [place] [address] GUZMAN, ERMELINDA Unavailable Unavailable + [place] [address] R Unavailable Unavailable Unavailable GUZMAN, MATT Unavailable [address] + [place] [address] GUZMAN, ERMELINDA Unavailable . + [place] [address] R Unavailable Unavailable Unavailable GUZMAN, MATT Unavailable [address] + [place] [address] GUZMAN, ERMELINDA Unavailable Unavailable + [place] [address] R Unavailable Unavailable Unavailable GUZMAN, MATT Unavailable [address] + [place] [address] GUZMAN, ERMELINDA Unavailable Unavailable + [place] [address] R Unavailable Unavailable Unavailable GUZMAN, MATT Unavailable [address] + [place] [address] GUZMAN, ERMELINDA Unavailable Unavailable + [place] [address] R Unavailable Unavailable Unavailable GUZMAN, MATT Unavailable [address] [place] [address] RD + [place] [address] GUZMAN, ERMELINDA Unavailable Unavailable + [place] [address] R Unavailable Unavailable Unavailable GUZMAN, MATT Unavailable [address] [place] [address] RD + [place] [address] GUZMAN, ERMELINDA Unavailable Unavailable + [place] [address] R Unavailable Unavailable Unavailable GUZMAN, MATT Unavailable [address] [place] [address] RD + [place] [address] GUZMAN, ERMELINDA Unavailable . + [place] [address] R Unavailable Unavailable Unavailable GUZMAN, MATT Unavailable [address] [place] [address] RD + [place] [address] R Unavailable Unavailable Unavailable GUZMAN, MATT Unavailable [address] [place] [address] RD + [place] [address] GUZMAN, ERMELINDA Unavailable Unavailable + R Unavailable Unavailable Unavailable GUZMAN, MATT Unavailable [address] [place] [address] RD + [place] [address] GUZMAN, ERMELINDA Unavailable . + [place] [address] R Unavailable Unavailable Unavailable GUZMAN, MATT Unavailable [address] [place] [address] RD + [place] [address] GUZMAN, ERMELINDA Unavailable Unavailable + R Unavailable Unavailable Unavailable GUZMAN, MATT Unavailable [address] [place] [address] RD + [place] [address] GUZMAN, ERMELINDA Unavailable . + [place] [address] R Unavailable Unavailable Unavailable GUZMAN, MATT Unavailable [address] [place] [address] RD + [place] [address] GUZMAN, ERMELINDA Unavailable Unavailable + R Unavailable Unavailable Unavailable GUZMAN, MATT Unavailable [address] [place] [address] RD + [place] [address] R Unavailable Unavailable Unavailable Care Team Providers Name Role Phone Phil Young Attending Unavailable PROVIDER, UNKNOWN Referring Unavailable No, PCP Primary Care Unavailable Phil Young Attending Unavailable Phil Young Referring Unavailable [facility] Unavailable Everardo Campbell Attending Unavailable Ranney, Christopher Referring Unavailable Roof, Uday H Attending Unavailable Roof, Uday H Referring Unavailable [facility] Unavailable Marilia Patten Consulting Unavailable Sandor, Marilia Attending Unavailable Ranney, Christopher Primary Care Unavailable Alesia Jerez Attending Unavailable Roof, Uday H Attending Unavailable Ranney, Christopher Referring Unavailable Ranney, Christopher Primary Care Unavailable Bijan Mcfadden D.O. Attending Unavailable Roof, Uday H Referring Unavailable [facility] Unavailable Kota Arreguin Attending Unavailable Sandor, Marilia Attending Unavailable Ranney, [facility] Primary Care Unavailable Sandor, Marilia Referring Unavailable Sandor, Marilia Attending Unavailable Ranney, Christopher Primary Care Unavailable [facility], [facility] Unavailable Nina Maxwell Attending Unavailable Everardo Campbell Referring Unavailable Matthewney, Christbrigetteer Attending Unavailable Ranney, Christopher Referring Unavailable Ranney, Christopher Primary Care Unavailable Matthewney, Christbrigetteer Attending Unavailable Ranney, Christopher Primary Care Unavailable Ranney, Christopher Referring Unavailable Roof, Uday H Attending Unavailable Ranney, Christopher Referring Unavailable [facility], [facility] Unavailable Ranney, Christopher Attending Unavailable Ranney, Christopher Referring Unavailable Ranney, Christopher Primary Care Unavailable Abelino Kaplan Attending Unavailable Abelino Kaplan Referring Unavailable Ranney, Christopher Primary Care Unavailable Tanphaichitr, Natthavat Attending Unavailable Tanphaichitr, Natthavat Referring Unavailable Ranney, Christopher Primary Care Unavailable PROBLEMS PROBLEMS DATE TYPE CONDITION / CODE ATTENDING STATUS SOURCE 06/28/2018 Admitting 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, left System eye / Repository H49.02(ICD-10) 06/08/2018 Unknown N18.4 - Chronic Tanphaichitr, Active [place] kidney disease, [facility] stage 4 (severe) / Hospital N18.4(ICD-10) Repository 06/08/2018 Unknown 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, 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 / [facility] E61.1(ICD-10) Hospital Repository 12/07/2017 Unknown R60.9 - Edema, Ranney, Active [facility] R60.9(ICD-10) Hospital Repository 08/13/2017 Unknown I51.7 - RoofUday Active [facility]aly / Community I51.7(ICD-10) Hospital Repository PROCEDURES PROCEDURES No Procedure Records FoundRESULTS RESULTS MRI BRAIN W/O Observed: 06/28/2018 Status: F Source: [facility] CONTRAST 1:50 PM SYSTEM REPOSITORY Patient Name: KONSTANTIN GUZMAN MRI Exam Date/Time 06/28/2018 11:44:07 EST Exam MRI Brain w/o Contrast Ordering Physician PHIL YOUNG Accession Number [id number] CPT4 Codes 39477 () Reason For Exam Third oculomotor nerve [...] SED RATE Collected: 06/24/2018 Status: F Source: [place] 10:26 AM [facility] TYPE CODE TESTS RESULT OUT OF RANGE REFERENCE UNITS LAB L102.0000 0-30 mm/hr Normal SED RATE 21 Performed By: #### L101.9900 #### [facility] [address] [place], [place], [address] SERUM CREATININE AND Collected: 06/24/2018 Status: F Source: [place] GFR 10:26 AM [facility] TYPE CODE TESTS RESULT OUT OF [...] Calc Performed By: #### L501.1105, L501.6710 #### [facility] [address] [place], [address] CRP Collected: 06/24/2018 Status: F Source: [place] 10:26 AM [facility] TYPE CODE TESTS RESULT OUT OF RANGE REFERENCE UNITS LAB L501.6710 0.0-3.0 mg/L Normal < 2.90 C-REACTIVE PROT Result Comment: C-Reactive Protein (CRP) provides useful information for the diagnosis, therapy and monitoring of inflammatory processes and associated diseases. For the evaluation of Relative Risk for Cardiovascular Disease, a High Sensitivity CRP (HSCRP) should be ordered. Performed By: #### L501.1105, L501.6710 #### [facility] [address] [place], [place], [address] CBC-COMPLETE BLOOD CNT Collected: 06/08/2018 Status: F Source: [place] NO DIFF 2:37 PM [facility] TYPE CODE TESTS RESULT OUT OF [...] MPV 11.3 Performed By: #### L100.0500 #### [facility] [address] [place], [place], [address] URINALYSIS, ROUTINE Collected: 06/08/2018 Status: F Source: [place] (DIPSTICK) 2:37 PM [facility] Order Comment: How was Urine Obtained? [...] 25 ESTERASE Performed By: #### L400.2010 #### [facility] [address] [place], [address] PROTEIN+CREATININE Collected: Status: F Source: [place] RATIO,URINE 06/08/2018 2:37 PM [facility] TYPE CODE TESTS RESULT OUT OF RANGE REFERENCE UNITS LAB L501.1200 NO RANGE EST. mg/dL Normal UR CREAT 34.10 LAB L501.1930 <11.9 mg/dL High 40.3 PROTEIN,UR.R AN. LAB L501.1940 0-200 mg/g CRE High PROT:CRE 1182 RATIO Performed By: #### L501.0900, L502.0250 #### [facility] [address] [place], [address] MICROALB:CREAT Collected: 06/08/2018 Status: F Source: [place] RATIO,RANDOM UR 2:37 PM [facility] TYPE CODE TESTS RESULT OUT OF RANGE REFERENCE UNITS LAB L502.0500 NO RANGE EST. mg/L Normal 112.0 MICROALBUMIN ,UR LAB L502.0600 <30 mg/g CRE mg/g CRE High 328.4 MALB:CREAT Performed By: #### L501.0900, L502.0250 #### [facility] [address] [place], [address] PTHIN Collected: 06/08/2018 Status: F Source: [place] 2:37 PM [facility] TYPE CODE TESTS RESULT OUT OF RANGE REFERENCE UNITS LAB L509.1000 18.4-80.1 pg/mL High PTHIN 149.0 Performed By: #### L509.1000 #### [facility] [address], [address] VITAMIN D,25 HYDROXY Collected: 06/08/2018 Status: F Source: [place] 2:37 PM [facility] TYPE CODE TESTS RESULT OUT OF REFERENCE UNITS RANGE LAB L506.1000 29.95-100.01 ng/mL Low Vitamin D 24.2 25-OH Result Comment: Vitamin D 25(OH) Status Range Deficiency <20 ng/mL (50nmol/L) Insuffciency 20 - 30 ng/mL (50 - 75 nmol/L) Sufficiency 30 - 100 ng/mL (75 - 250 nmol/L) Toxicity >100 ng/mL (>250 nmol/L) Performed By: #### L506.1000 #### [facility] [address] [place], [place], [address] RENAL PROFILE Collected: 06/08/2018 Status: F Source: [place] 2:35 PM [facility] Order Comment: Order Date: 12/01/17 Order [...] CO2 31.0 Performed By: #### L500.3600 #### [facility] [address] [place], [address] KIDNEY AND BLADDER Observed: 05/17/2018 Status: F Source: [place] 4:39 PM [facility] Imaging Services [address] [place] [address] Kidney and Bladder MR#: [id number] Acct: [id number] Name: KONSTANTIN GUZMAN Rep #: [id number] : 1940 F 77 From: Navneet Cuevas PCP: Roberto Knapp MD Status: REG CLI Study: Kidney and Bladder Date of Exam: 05/17/18 Exam# [id number] Ordering Dr: Abelino Kaplan MD STUDY: RENAL [...] CC: Abelino Kaplan MD; Roberto Knapp MD Service Loss Control Consultant: Signed BNP,B-TYPE NATRIURETIC Collected: 04/01/2018 Status: F Source: [place] PEPTIDE 2:03 PM [facility] TYPE CODE TESTS RESULT OUT OF RANGE REFERENCE UNITS LAB L503.6620 0-100 pg/mL High B-TYPE 1595.7 KELL PEP Performed By: #### L503.6620 #### [facility] [address] [place], [place], [address] CBC-COMPLETE BLOOD CNT Collected: 04/01/2018 Status: F Source: [place] NO DIFF 2:02 PM [facility] Order Comment: Order Date: 12/23/17 Order Info: [id number] - CBC TYPE CODE TESTS RESULT OUT [...] Performed By: #### L100.0500, L500.4050, L500.4100 #### [facility] [address] [place], [address] COMPREHENSIVE METABOLIC Collected: 04/01/2018 Status: F Source: [facility] 2:02 PM [facility] Order Comment: Order Date: 12/23/17 Order Info: 0786-1 - CMP Order Info: 51241-1 - LIPID TYPE CODE TESTS RESULT OUT [...] Performed By: #### L100.0500, L500.4050, L500.4100 #### [facility] [address] [place], [address] LIPID PROFILE Collected: 04/01/2018 Status: F Source: [place] 2:02 PM [facility] Order Comment: Order Date: 12/23/17 Order Info: 0786-1 - CMP Order Info: 57976-1 - LIPID TYPE CODE TESTS RESULT OUT [...] Performed By: #### L100.0500, L500.4050, L500.4100 #### [facility] [address] [place], [address] CBC W/DIFF, AUTOMATED Collected: 04/01/2018 Status: F Source: [place] 2:02 PM [facility] Order Comment: Order Date: 12/23/17 Order Info: [id number] - CBC TYPE CODE TESTS RESULT OUT [...] Lymph 0.67 Performed By: #### L100.0100 #### [facility] [address] [place], [address] CARDIOLOGY VISIT Observed: 02/01/2018 Status: F Source: [place] REPORT 4:52 PM [facility] [address] [place] [address] OFFICE VISIT Date of Service: 02/01/18 MR#: [id number] Acct: [id number] Name: KONSTANTIN GUZMAN Rep #: [id number] : 1940 Provider: REBECCA Ruby Age/Sex: 77/F [facility] Status: Signed HPI HPI Details: KONSTANTIN GUZMAN, [...] brachial Intake Visit Reasons: 6 m fu Guest Request Runner Required: No Accompanied by: Son Is patient in pain?: No Allergies codeine Allergy (Verified 02/01/18 16:10) Rash amlodipine besylate [From Norvasc] Adverse Reaction (Verified 02/01/18 16:10) Pain in [...] high-risk medication (Chronic) 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 Assessment AND Plan 1. Atherosclerosis of twenty-nine palms coronary artery of twenty-nine [place] heart without angina pectoris I25.10 CABG x4- [...] Plan She will continue follow-up with primary fashion intern for this. Deferred to her chronic kidney disease her Lasix will not be adjusted to help with lower extremity edema at this time. Further input from fashion intern will be greatly appreciated to help manage [...] Follow Up 14 Months (PFM) 6 Months (TERRITORY OUTSIDE SALES MANAGER/PA) Coding Level of Care Code Off vis,est,level 3 Diagnoses Atherosclerosis of twenty-nine palms coronary artery of twenty-nine [place] heart without angina pectoris I25.10 Saxman vs. transplanted heart: twenty-nine palms heart Aortocoronary bypass status Z95.1 Paroxysmal atrial fibrillation I48.0 Cardiomyopathy, ischemic I25.5 Benign essential HTN I10 Hyperlipidemia E78.2 Hyperlipidemia type: Mixed hyperlipidemia CKD (chronic kidney disease) stage 3, GFR 30-59 ml/min N18.3 Coding Level of Care Code Off vis,est,level 3 Diagnoses Atherosclerosis of twenty-nine palms coronary artery of twenty-nine palms heart without angina pectoris I25.10 Saxman vs. transplanted heart: twenty-nine [place] heart Aortocoronary bypass status Z95.1 Paroxysmal atrial fibrillation I48.0 Cardiomyopathy, ischemic I25.5 Benign essential HTN I10 Hyperlipidemia E78.2 Hyperlipidemia type: Mixed hyperlipidemia CKD (chronic kidney disease) stage 3, GFR 30-59 ml/min N18.3 02/01/18 1652 <Electronically signed by Uday SANDOVAL> Date Uday SANDOVAL Cosigner Signature: Date (if applicable) CC: Roberto Knapp MD BASIC METABOLIC Collected: 12/07/2017 Status: F Source: [place] HIDALGO (BMP) 10:37 AM [facility] TYPE CODE TESTS RESULT OUT OF [...] GAP 10 Performed By: #### L500.2500 #### [facility] [address] [place] [address]. [place], [address] COMPREHENSIVE METABOLIC Collected: 11/29/2017 Status: F Source: [place] HOLLOWAY 11:03 AM [facility] Order Comment: Order Date: 11/25/17 Order [...] Normal GAP 10 Performed By: #### L500.4050, L501.9520 #### [facility] [address] [place], [address] THYROID STIM HORMONE Collected: 11/29/2017 Status: F Source: [place] (TSH) 11:03 AM [facility] Order Comment: Order Date: 11/25/17 Order Info: [id number] - CMP Order Info: 3016-3 - TSH TYPE CODE TESTS RESULT OUT OF RANGE REFERENCE UNITS LAB L501.9520 0.358-3.74 uIU/mL Normal TSH 2.20 Performed By: #### L500.4050, L501.9520 #### [facility] [address] [place], [address] EMERGENCY DEPARTMENT Observed: 11/28/2017 Status: F Source: [place] SUMMARY 11:36 PM [facility] Medical Records Department [address] [place] [address] Emergency Department Summary 11/28/17 1824 MR#: [id number] Acct: [id number] Name: KONSTANTIN GUZMAN Rep #: [id number] : 1940 77 From: Nina Maxwell DO [...] head injury This note was generated with CubeTree dictation software. It may contain incorrect words, [...] your Primary Care Provider. Call [facility] ([phone]) or report to the closest Emergency Room. Call 911 if necessary. 11/28/17 2336 <Electronically signed by Nina Maxwell DO> Date Nina Maxwell DO Cosigner Signature (If Indicated): Date CC: Roberto Knapp MD DISCHARGE INSTRUCTION Observed: 11/28/2017 Status: F Source: [place] 9:02 PM [facility] Medical Records Department [address] [place] [address] Discharge Instruction 11/28/172100 MR#: [id number] Acct: [id number] Name: MEGANKONSTANTIN E Rep #: [id number] : 1940 77 From: Nina Maxwell DO [...] your Primary Care Provider. Call [facility] ([phone]) or report to the closest Emergency Room. Call 911 if necessary. 11/28/172101 <Electronically signed by Nina Maxwell DO> Date Nina Maxwell DO Cosigner Signature (If Indicated): Date CC: Roberto Knapp MD BRAIN/HEAD WITHOUT Observed: 11/28/2017 Status: F Source: [place] CONTRAST 6:23 PM [facility] Imaging Services [address] [place] [address] Brain/Head without Contrast MR#: [id number] Acct: [id number] Name: KONSTANTIN GUZMAN Rep #: [id number] : 1940 F 77 From: Shad Menjivar MD PCP: Roberto Knapp MD Status: REG ER Study: Brain/Head without Contrast Date of Exam: 11/28/17 Exam# [id number] Ordering Dr: Nina Maxwell DO STUDY: CT [...] CC: Roberto Knapp MD; Nina Maxwell DO Service Loss Control Consultant: Signed CBC-COMPLETE BLOOD CNT Collected: 10/26/2017 Status: F Source: [place] NO DIFF 12:33 PM [facility] TYPE CODE TESTS RESULT OUT OF [...] MPV 10.9 Performed By: #### L100.0500 #### [facility] [address] [place], [address] RENAL PROFILE Collected: 10/26/2017 Status: F Source: [place] 12:33 PM [facility] TYPE CODE TESTS RESULT OUT OF [...] CO2 31.0 Performed By: #### L500.3600 #### [facility] [address] [place], [address] PTHIN Collected: 10/26/2017 Status: F Source: [place] 12:33 PM [facility] TYPE CODE TESTS RESULT OUT OF RANGE REFERENCE UNITS LAB L509.1000 18.4-80.1 pg/mL High PTHIN 161.4 Result Comment: Please Note: PTH INTACT METHOD AND REFERENCE RANGE CHANGE Effective 06/30/2017. Performed By: #### L509.1000 #### [facility] [address] [place], [address] 12 LEAD ELECTROCARDIOGRAM Observed: 09/08/2017 Status: F Source: [place] 1:53 PM [facility] Cardiovascular Services [address] [place] [address] 12 Lead EKG 09/06/17 0726 MR#: [id number] Acct: [id number] Name: KONSTANTIN GUZMAN Rep #: [id number] : 1940 76 From: Julito Cummings MD [...] ECG Confirmed by JULITO CUMMINGS MD ([id number]), magazine editor GONSALO MATHEW ([id number]) on 09/08/2017 1:53:01 PM Referred By: MAAME Confirmed By:JULITO CUMMINGS MD 09/08/17 1353 Date Julito Cummings MD CC: Roberto Knapp MD; Kota Arreguin DO Signed EMERGENCY DEPARTMENT Observed: 09/06/2017 Status: F Source: [place] SUMMARY 4:38 PM [facility] Medical Records Department [address] [place] [address] Emergency Department Summary 09/06/17 0715 MR#: [id number] Acct: [id number] Name: KONSTANTIN GUZMAN Rep #: [id number] : 1940 76 From: Kota Arreguin DO [...] She went to see Dr. Patten her fashion intern about 1 month ago and had her Lasix decreased from 10 mg a day to 20 mg a day. She states that this was because of declining renal function. At her last mechanic marine engine in (Dr. Campbell) office her amiodarone was [...] kidney disease This note was generated with CubeTree dictation software. It may contain incorrect words, [...] your Primary Care Provider. Call [facility] ([phone]) or report to the closest Emergency Room. Call 911 if necessary. 09/06/17 1630 <Electronically signed by Kota Arreguin DO> Date Kota Arreguin DO Cosigner Signature (If Indicated): Date CC: Roberto Knapp MD CBC W/DIFF, AUTOMATED Collected: 09/06/2017 Status: F Source: [place] 7:45 AM [facility] TYPE CODE TESTS RESULT OUT OF [...] Lymph 0.77 Performed By: #### L100.0100 #### [facility] [address] [place], [address] BASIC METABOLIC Collected: 09/06/2017 Status: F Source: [place] PROFILE (BMP) 7:45 AM [facility] Order Comment: 'TROP' Serial specimen #1, [...] 3 Performed By: #### L500.2500, L501.4010 #### [facility] [address] [place], [address] TROPONIN-I Collected: 09/06/2017 Status: F Source: [place] 7:45 AM [facility] Order Comment: 'TROP' Serial specimen #1, #2, #3, or #4: 1 TYPE CODE TESTS RESULT OUT OF RANGE REFERENCE UNITS LAB L501.4010 <0.06 ng/mL Normal < 0.02 TROPONIN-I Result Comment: TROPONIN-I EXPECTED VALUES <0.05 NEGATIVE 0.06 - 0.59 AT RISK OF LA > OR = 0.60 SUGGEST LA Performed By: #### L500.2500, L501.4010 #### [facility] [address] [place], [address] BNP,B-TYPE NATRIURETIC Collected: 09/06/2017 Status: F Source: [place] PEPTIDE 7:45 AM [facility] TYPE CODE TESTS RESULT OUT OF RANGE REFERENCE UNITS LAB L503.6620 0-100 pg/mL High B-TYPE 1844.3 KELL PEP Performed By: #### L503.6620 #### [facility] [address] [place], [address] CHEST PA AND LATERAL Observed: 09/06/2017 Status: F Source: [place] 7:13 AM [facility] Imaging Services [address] [place] [address] Chest PA and Lateral MR#: [id number] Acct: [id number] Name: KONSTANTIN GUZMAN Rep #: [id number] : 1940 F 76 From: Pavel Macias MD PCP: Roberto Knapp MD Status: REG ER Study: Chest PA and Lateral Date of Exam: 09/06/17 Exam# [id number] Ordering Dr: Kota Arreguin DO STUDY: X-RAY [...] Pavel Macias MD at 8:15 EST Tel [phone], Service support , CC: Roberto Knapp MD; Kota Arreguin DO Service Loss Control Consultant: Signed CARDIOLOGY VISIT Observed: 08/25/2017 Status: F Source: [place] REPORT 5:51 PM [facility] [address] [place] [address] OFFICE VISIT Date of Service: 08/25/17 MR#: [id number] Acct: [id number] Name: KONSTANTIN GUZMAN Rep #: [id number] : 1940 Provider: REBECCA Ruby Age/Sex: 76/F Location: [facility] Status: Signed HPI HPI Chief Complaint: l [...] brachial Intake Visit Reasons: 6 M FU Guest Request Runner Required: No Accompanied by: None Is patient in pain?: No Allergies codeine Allergy (Verified 08/25/17 10:34) Rash amlodipine besylate [From [facility]] Adverse Reaction (Verified 08/25/17 10:34) Pain in [...] high-risk medication (Chronic) Atherosclerotic heart disease of twenty-nine [place] coronary artery without angina pectoris (Chronic) Paroxysmal [...] affect Assessment AND Plan 1. Atherosclerosis of twenty-nine palms coronary artery of twenty-nine palms heart without angina pectoris I25.10 CABG x4- BRAMBILA to LAD, SVG to Ramus, SVG to OM1, SVG to RCA w/exclusion of left atrial appendage with a #35mm AtriCure Clip 11/18/15 Plan - SHAKEEL CastañedaC Patient denies any chest pain, arm pain, [...] as needed. 4. Cardiomyopathy, ischemic I25.5 Plan - LORI Castañeda Patient's most recent echocardiogram from December 2016 [...] 7. Long-term use of high-risk medication Z79.899 Plan LORI Bertrand Patient will continue with reduced amiodarone dose. We will continue to monitor this going forward with liver profile, thyroid testing, chest x-ray, and repeat PFTs. Plan Detail Additional Comments - LORI Castañeda Patient will keep December [address] Moodispaw for further evaluation. Discussed the above patient [...] Code Off vis,est,level 3 Diagnoses Atherosclerosis of twenty-nine palms coronary artery of twenty-nine palms heart without angina pectoris I25.10 [place] vs. transplanted heart: twenty-nine palms heart Valvular heart disease I38 Paroxysmal atrial fibrillation I48.0 Cardiomyopathy, ischemic I25.5 Essential hypertension I10 Hypertension type: essential hypertension Hyperlipidemia E78.2 Hyperlipidemia type: Mixed hyperlipidemia Long-term use of high-risk medication Z79.899 Coding Level of Care Code Off vis,est,level 3 Diagnoses Atherosclerosis of twenty-nine palms coronary artery of twenty-nine palms heart without angina pectoris I25.10 [place] vs. transplanted heart: twenty-nine palms heart Valvular heart disease I38 Paroxysmal atrial fibrillation I48.0 Cardiomyopathy, ischemic I25.5 Essential hypertension I10 Hypertension type: essential hypertension Hyperlipidemia E78.2 Hyperlipidemia type: Mixed hyperlipidemia Long-term use of high-risk medication Z79.899 08/25/17 1140 <Electronically signed by Uday Ruby NP-C> Date Uday Ruby TERRITORY OUTSIDE SALES MANAGER-C 08/25/17 1751<Electronically signed by Everardo Campbell MD> Cosigner Signature: Date (if applicable) Everardo Campbell MD CC: Roberto Knapp MD PULMONARY FUNCTION Observed: 08/15/2017 Status: F Source: [place] TEST 11:55 AM [facility] Pulmonary Services/Neurology [address] [place] [address] MR#: [id number] Acct: [id number] Name: KONSTANTIN GUZMAN Rep #: [id number] : 1940 76 From: Bijan Mcfadden DO Referring Dr: Uday Ruby TERRITORY OUTSIDE SALES MANAGER Status: REG CLI Ordering Dr: Date: Location: [facility] Sex: F C INTRODUCTION: The patient is a 76-year-old female currently under the care of Uday ruby NP that presents for pulmonary function testing secondary [...] Mcfadden DO> Date Bijan Mcfadden DO CC: TERRITORY OUTSIDE SALES MANAGER Uday Ruby; Roberto Knapp MD Date Dictated: 08/15/17 1150 Date Transcribed: 08/15/17 115 Service Loss Control Consultant: ROSENDA Signed CBC-COMPLETE BLOOD CNT Collected: 08/13/2017 Status: F Source: [place] NO DIFF 2:16 PM [facility] TYPE CODE TESTS RESULT OUT OF [...] MPV 11.6 Performed By: #### L100.0500 #### [facility] [address] [place], [place], [address] RENAL PROFILE Collected: 08/13/2017 Status: F Source: [place] 2:16 PM [facility] TYPE CODE TESTS RESULT OUT OF [...] CO2 29.0 Performed By: #### L500.3600 #### [facility] [address] [place], [place], [address] PTHIN Collected: 08/13/2017 Status: F Source: [place] 2:16 PM [facility] REPOSITORY TYPE CODE TESTS RESULT OUT OF RANGE REFERENCE UNITS LAB L509.1000 18.4-80.1 pg/mL High PTHIN 163.2 Result Comment: Please Note: PTH INTACT METHOD AND REFERENCE RANGE CHANGE Effective 06/30/2017. Performed By: #### L509.1000 #### [facility] [address] [place], [address] ALLERGIES ALLERGIES DATE TYPE / CODE NAME / CODE REACTION SEVERITY SOURCE 02/01/2018 Drug amlodipine Pain in joints Unknown [place] Allergy/416 besylate/[id number] [facility] 952206([facility] 02/01/2018 Drug codeine/[id number] Rash Unknown [place] Allergy/416 0(RXNORM) [facility] 240285([facility] ED CT) Repository ENCOUNTERS ENCOUNTERS ADMIT/DISCHARGE ACCOUNT NUMBER ADMITTING ENCOUNTER LOCATION SOURCE CLASS 06/28/2018 [id number] [facility] Repository 06/24/2018 [id number] Ambulatory [facility] ding:MTLAB Repository 06/08/2018 [id number] Ambulatory [facility] ding:LAB.FUT Repository URE 05/17/2018 [id number] Ambulatory [facility] ding:US Repository 04/01/2018 [id number] [facility] ding:MTLAB Repository 02/01/2018/02/02/20 [id number] Ambulatory BMSBuilding: [place] [address] [facility] Repository 01/10/2018 [id number] Ambulatory [place] [facility] ding:LAB.FUT Repository URE 12/07/2017 [id number] [facility] ding:LAB.FUT Repository URE 11/29/2017 [id number] [facility] ding:MT[facility] Repository 11/28/2017/11/29/19 [id number] Emergency [place] 18 [facility] ding:ED Repository 10/26/2017 [id number] Ambulatory [facility] ding:LAB.FUT Repository URE 09/06/2017/09/06/19 [id number] Emergency [address] ding:ED Repository 08/25/2017 [id number] Ambulatory BMSBuilding: [place] [facility] Repository 08/25/2017 [id number] Ambulatory BMSBuilding: [place] [facility] Repository 08/25/2017/08/25/19 [id number] Ambulatory BMSBuilding: [place] 18 [facility] Repository 08/18/2017 [id number] Ambulatory [facility] ding:LAB.FUT Repository URE 08/15/2017 [id number] Ambulatory BMSBuilding: [place] [facility] Repository 08/13/2017 [id number] Ambulatory [facility] ding:PSN Repository 08/06/2017 [id number] Ambulatory BMSBuilding: [place] [facility] Repository PAYERS PAYERS ENCOUNTER GUARANTOR PAYER SUBSCRIBER SOURCE 06/28/2018 Konstantin ValadezB: Primary Konstantin AdanthonyDOB: [place] Insurance:MedicarePol [id number] [place] [facility] Number: Effective Repository [place], [place] Date: [address]Rcv: () 06/28/2018 Secondary Konstantin [facility] Insurance:MedicarePol [id number] System icy Number: Effective Repository Date: 06/28/2018 Tertiary Konstantin AdanthonyDOB[facility] Insurance:MedicaidPol [id number] System icy Number: Effective Repository Date: 06/24/2018 KONSTANTIN Javier Primary KONSTANTIN [place] [id number] Insurance:MEDICARE ADKINSDOB: [facility] PART A [facility] [id number] Number[place] Repository [address]Kyl: [phone] [id number] [phone] (HP) Date:2018-06-24 06/24/2018 Secondary KONSTANTIN [place] Insurance:MEDICAIDPol ADKINSDOB: [facility] Number: [id number] Hospital [id number] Repository Date:2018-06-24 06/24/2018 Tertiary NOT [place]IVENUNK [place] Insurance:SELF PAY [facility] Effective Repository Date:2018-06-24 06/08/2018 KONSTANTIN E Primary KONSTANTIN [place] [id number] Insurance:MEDICARE ADKINSDOB: [id number] [place] Number[facility] Repository [address]Rru: 330 [id number] [phone] (HP) Date:2018-06-06 06/08/2018 Secondary KONSTANTIN E [place] Insurance:MEDICAIDPol ADKINSDOB: [facility] icy Number: [id number] Hospital [id number] Repository Date:2018-06-06 06/08/2018 Tertiary NOT G[place]ENUNK [place] Insurance:SELF PAY [facility] Number: Effective Repository Date:2018-06-06 05/17/2018 KONSTANTIN E Primary KONSTANTIN [place] [id number] Insurance:MEDICARE ADKINSDOB: [facility] [id number] [place] Number: Repository [address]Zhk: 330 [id number] [phone] (HP) Date:2018-03-04 05/17/2018 Secondary KONSTANTIN E [place] Insurance:MEDICAIDPol ADKINSDOB: [facility] icy Number: [id number] Hospital [id number] Repository Date:2018-03-04 05/17/2018 Tertiary NOT GIVENUNK [place] Insurance:SELF PAY [facility] Number: Effective Repository Date:2018-03-04 04/01/2018 KONSTANTIN E Primary KONSTANTIN Javier [place] [id number] Insurance:MEDICARE ADKINSDOB: [facility] [id number] Number: Repository [address]Bgi: 330 [id number] [phone] (HP) Date:2018-03-11 04/01/2018 Secondary K[place]STANTIN E [place] Insurance:MEDICAIDPol ADKINSDOB: [facility] icy Number: [id number] Hospital [id number] Repository Date:2018-03-11 04/01/2018 Tertiary NOT GIVENUNK [place] Insurance:SELF PAY [facility] Effective Repository Date:2018-03-11 02/01/2018 KONSTANTIN E Primary KONSTANTIN [place] [id number] Insurance:MEDICARE ADKINSDOB: [facility] PART A [facility] [id number] [place] Number: Repository [address]Ikp: 330 [id number] [phone] (HP) Date:2018-01-24 02/01/2018 Secondary KONSTANTIN E [place] Insurance:MEDICAIDPol ADKINSDOB: [facility] icy Number: [id number] Hospital [id number] Repository Date:2018-01-24 02/01/2018 Tertiary NOT GIVENUNK [place] Insurance:SELF PAY [facility] Number: Effective Repository Date:2018-02-01 01/10/2018 KONSTANTIN E Primary KONSTANTIN [place] [id number] Insurance:MEDICARE ADKINSDOB: [facility] A [facility] [id number] [place] Number: Repository [address]Yio: 330 [id number] [phone] () Date:2017-10-28 01/10/2018 Secondary KONSTANTIN E [place] Insurance:MEDICAIDPol ADKINSDOB: [facility] icy Number: [id number] Hospital [id number] Repository Date:2017-10-28 01/10/2018 Tertiary NOT [place]UNK [place] Insurance:SELF PAY [facility] Number: Effective Repository Date:2017-10-28 12/07/2017 KONSTANTIN E Primary KONSTANTIN E [place] [id number] Insurance:MEDICARE ADKINSDOB: [facility] PART A [facility] [id number], [place] Number: Repository [address]Abf: 330 [id number] [phone] () Date:2017-12-02 12/07/2017 Secondary KONSTANTIN E [place] Insurance:MEDICAIDPol ADKINSDOB: [facility] icy Number: [id number] Hospital [id number] Repository Date:2017-12-02 12/07/2017 Tertiary NOT [place]UNK [place] Insurance:SELF PAY [facility] Number: Effective Repository Date:2017-12-02 11/29/2017 KONSTANTIN Javier Primary KONSTANTIN [place] [id number] Insurance:MEDICARE ADKINSDOB: [facility] PART A [facility] [id number] [facility] [place] Number: Repository [address]Adp: 330 [id number] [phone] (HP) Date:2017-11-29 11/29/2017 Secondary KONSTANTIN Javier [place] Insurance:MEDICAIDPol ADKINSDOB: [facility] icy Number: [id number] Hospital [id number] Repository Date:2017-11-29 11/29/2017 Tertiary NOT GIVENUNK [place] Insurance:SELF PAY [facility] Number: Effective Repository Date:2017-11-29 11/28/2017 KONSTANTIN Javier Primary KONSTANTIN [place] [id number] Insurance:MEDICARE ADKINSDOB: [facility] PART A [facility] [id number] [facility] District [facility] [place] Number: Repository [address]Kmu: 330 [id number] [phone] () Date:2017-11-28 11/28/2017 Secondary KONSTANTIN Javier [place] Insurance:MEDICAIDPol ADKINSDOB: [facility] icy Number: [id number] Hospital [id number] Repository Date:2017-11-28 11/28/2017 Tertiary NOT GIVENUNK [place] Insurance:SELF PAY [facility] Number: Effective Repository Date:2017-11-28 10/26/2017 KONSTANTIN E Primary KONSTANTIN [place] [id number] Insurance:MEDICARE ADKINSDOB: [facility] PART A [facility] [id number] [facility] District [facility] [place] Number: Repository [address]Cpy: 330 [id number] [phone] (HP) Date:2017-10-11 10/26/2017 Secondary [place]STANTIN E [place] Insurance:MEDICAIDPol ADKINSDOB: [facility] icy Number: [id number] Hospital [id number] Repository Date:2017-10-11 10/26/2017 Tertiary NOT GIVENUNK [place] Insurance:SELF PAY [facility] Number: Effective Repository Date:2017-10-11 09/06/2017 KONSTANTIN Javier Primary KONSTANTIN Mroeno [id number] Insurance:MEDICARE ADKINSDOB: [facility] PART A [facility] [id number] [facility] [place] Number: Repository [address]Yym: 330 [id number] [phone] (HP) Date:2017-09-06 09/06/2017 Secondary KONSTANTIN [place] Insurance:MEDICAIDPol ADKINSDOB: [facility] icy Number: [id number] Hospital [id number] Repository Date:2017-09-06 09/06/2017 Tertiary NOT [place]UNK [place] Insurance:SELF PAY [facility] Number: Effective Repository Date:2017-09-06 08/25/2017 Konstantin Javier Primary Konstantin [place] [id number] Insurance:MEDICARE AdkinsDOB: [facility] A [facility] [id number] [place] Number: Repository [address]Xqd: 330 [id number] [phone] (HP) Date:2017-08-05 08/25/2017 Secondary Konstantin [place] Insurance:MEDICAIDPol AdkinsDOB: [facility] icy Number: [id number] Hospital [id number] Repository Date:2017-08-05 08/25/2017 Tertiary NOT GIVENUNK [place] Insurance:SELF PAY [facility] Number: Effective Repository Date:2017-08-05 08/25/2017 Konstantin Javier Primary Konstantin [place] [id number] Insurance:MEDICARE AdkinsDOB: [facility] A [facility] [id number] [place] Number: Repository [address]Pdp: 330 [id number] [phone] (HP) Date:2017-08-25 08/25/2017 Secondary Konstantin Javier [place] Insurance:MEDICAIDPol AdkinsDOB: [facility] icy Number: [id number] Hospital [id number] Repository Date:2017-08-25 08/25/2017 Tertiary NOT GIVENUNK [place] Insurance:SELF PAY [facility] Number: Effective Repository Date:2017-08-25 08/25/2017 KONSTANTIN Javier Primary KONSTANTIN [place] [id number] Insurance:MEDICARE ADKINSDOB: [facility] PART A [facility] [id number], [place] Number: Repository [address]Ugz: 330 [id number] [phone] (HP) Date:2017-08-05 08/25/2017 Secondary KONSTANTIN Javier [place] Insurance:MEDICAIDPol ADKINSDOB: [facility] icy Number: [id number] Hospital [id number] Repository Date:2017-08-05 08/25/2017 Tertiary NOT GIVENUNK [place] Insurance:SELF PAY [facility] Number: Effective Repository Date:2017-08-05 08/18/2017 Konstantin Javier Primary Konstantin [place] [id number] Insurance:MEDICARE AdkinsDOB: [facility] A [facility] [id number] [place] Number: Repository [address]Bpa: 330 [id number] [phone] (HP) Date:2017-08-18 08/18/2017 Secondary Konstantin Concepcion [place] Insurance:MEDICAIDPol AdkinsDOB: [facility] icy Number: [id number] Hospital [id number] Repository Date:2017-08-18 08/18/2017 Tertiary NOT GIVENUNK [place] Insurance:SELF PAY [facility] Number: Effective Repository Date:2017-08-18 08/15/2017 KONSTANTIN E Primary KONSTANTIN [place] [id number] Insurance:MEDICARE ADKINSDOB: [facility] A [facility] [id number], [place] Number: Repository [address]Nlk: 330 [id number] [phone] (HP) Date:2004-10-10 08/15/2017 Secondary KONSTANTIN E [place] Insurance:MEDICAIDPol ADKINSDOB: [facility] icy Number: [id number] Hospital [id number] Repository Date:2017-02-15 08/15/2017 Tertiary NOT G[place]ENUNK [place] Insurance:SELF PAY [facility] Number: Effective Repository Date:2017-08-15 08/13/2017 Konstantin Javier Primary Konstantin [place] [id number] Insurance:MEDICARE AdkinsDOB: [facility] A [facility] [id number] Number: Repository [address]Gih: [phone] [id number] [phone] () Date:2004-10-10 08/13/2017 Secondary Konstantin [place] Insurance:MEDICAIDPol AdkinsDOB: [facility] icy Number: [id number] Hospital [id number] Repository Date:2017-02-15 08/13/2017 Tertiary NOT GIVENUNK [place] Insurance:SELF PAY [facility] Number: Effective Repository Date:2017-04-29 08/06/2017 Konstantin Javier Primary Konstantin [place] [id number] Insurance:MEDICARE AdkinsDOB: [facility] [id number] [place] Number: Repository [address]Awi: [phone]) [id number] [phone] () Date:2017-06-12 08/06/2017 Secondary Konstantin [place] Insurance:MEDICAIDPol AdkinsDOB: [facility] icy Number: [id number] Hospital [id number] Repository Date:2017-06-12 08/06/2017 Tertiary NOT GIVENUNK [place] Insurance:SELF PAY [facility] Number: Effective Repository Date:2017-06-12
== END ==
PROVIDERS: Family Provider Family Medicine; PCP Family Medicine; Referring Provider Ophthalmology; Visit Provider Ophthalmology
DX: H49.02 Third [oculomotor] nerve palsy, left eye (principal)
CPT/HCPCS: 36415; 82565; 85652; 86140

== ENCOUNTER → 2018-08-09 11:13 | Outpatient (CLI) | payer MEDICARE, MEDICAID, SELFPAY ==
[2018-08-09 12:08] LABS: BUN 21 mg/dL (7-18); Creatinine, Serum 2.32 mg/dL (0.55-1.02); EST Glomerular Filtration Rate 22 mL/min (>60); Est Glom Filt Rate - Afr Amer 26 mL/min (>60)
== END ==
PROVIDERS: Family Provider Family Medicine; PCP Family Medicine; Referring Provider Neurological Surgery; Visit Provider Neurological Surgery
DX: G93.9 Disorder of brain, unspecified (principal)
CPT/HCPCS: 36415; 82565; 84520

== ENCOUNTER → 2018-08-30 13:15 | Outpatient (CLI) | payer MEDICARE, MEDICAID, SELFPAY ==
[2018-02-01 16:04] VITALS: BMI 32.4
[2018-08-30 14:19] LABS: Anion Gap 8 (5-15); BUN 28 mg/dL (7-18); BUN/Creat Ratio 14.7 RATIO (10-20); Calcium,Total 8.8 mg/dL (8.5-10.1); Chloride 107 mmol/L (98-107); Creatinine, Serum 1.91 mg/dL (0.55-1.02); EST Glomerular Filtration Rate 27 mL/min (>60); Est Glom Filt Rate - Afr Amer 33 mL/min (>60); Glucose 84 mg/dL (74-106); Potassium 3.6 mmol/L (3.5-5.1); Sodium Level 144 mmol/L (136-145)
== END ==
PROVIDERS: Family Provider Family Medicine; PCP Family Medicine; Referring Provider Family Medicine; Visit Provider Family Medicine
DX: N18.9 Chronic kidney disease, unspecified (principal)
CPT/HCPCS: 36415; 80048

== ENCOUNTER → 2018-09-28 16:32 | Outpatient (CLI) | payer MEDICARE, MEDICAID, SELFPAY ==
[2018-02-01 16:04] VITALS: BMI 32.4
--- NOTE | 2018-09-28 16:36 | RAD_ITS ---
STUDY: X-RAY CHEST REASON FOR EXAM: Female, 77 years old. Cough TECHNIQUE: 2 views COMPARISON: None. FINDINGS: There is cardiomegaly with central vascular congestion and median sternotomy wires. No pneumonia. No pleural effusions. Numerous surgical clips in the left axilla.. Normal visualized thoracic spine. Normal visualized ribs, clavicles, and shoulders. There is no demonstrated abnormality of the visualized soft tissue structures of the upper abdomen. RAD/Chest PA and Lateral IMPRESSION: Cardiomegaly with mild central vascular congestion Electronically Signed: Ravi Spencer MD at 4:41 EDT Tel , Service support ,
[2018-09-28 17:30] LABS: Hemoglobin 10.7 g/dl (12.0-15.0); Mean Corp Hgb Conc 29.7 g/gl (32-36); Mean Corpuscular Hgb 30.7 pg (27.0-32.0); Mean Corpuscular Volume 103.2 fL (81-99); Mean Platelet Vol. 10.8 fl (6.2-12.0); Platelet Count 188 K/mm3 (150-450); RBC Distribution Width CV 14.9 % (11.6-14.6); RBC Distribution Width SD 54.5 fl (35.1-43.9); Red Blood Count 3.49 M/mm3 (4.2-5.4); White Blood Count 5.7 K/mm3 (4.4-11.0)
[2018-09-28 17:50] LABS: Scan Indicated on CBC? Y/N NO
[2018-09-28 17:56] LABS: BNP,B-Type NATRIURETIC PEPTIDE 1219.8 pg/mL (0-100)
[2018-09-28 17:57] LABS: Anion Gap 7 (5-15); BUN 23 mg/dL (7-18); BUN/Creat Ratio 13.1 RATIO (10-20); Calcium,Total 9.1 mg/dL (8.5-10.1); Chloride 109 mmol/L (98-107); Creatinine, Serum 1.76 mg/dL (0.55-1.02); EST Glomerular Filtration Rate 30 mL/min (>60); Est Glom Filt Rate - Afr Amer 36 mL/min (>60); Glucose 92 mg/dL (74-106); Potassium 3.6 mmol/L (3.5-5.1); Sodium Level 146 mmol/L (136-145); Thyroid Stim Hormone (TSH) 2.13 uIU/mL (0.358-3.74)
== END ==
PROVIDERS: Family Provider Family Medicine; PCP Family Medicine; Referring Provider Family Medicine; Visit Provider Family Medicine
DX: R05 Cough (principal); I50.9 Heart failure, unspecified; E03.9 Hypothyroidism, unspecified
CPT/HCPCS: 36415; 71046; 80048; 83880; 84443; 85027

== ENCOUNTER 2018-10-05 17:43 | Emergency (ER) | payer MEDICARE, MEDICAID, SELFPAY ==
[2018-09-29 16:47] VITALS: BMI 30.2
[2018-10-05 17:45] VITALS: BP 161/79; PULSE 54; RESP 16; TEMP 36.7; O2SAT 96; BMI 29.2
--- NOTE | 2018-10-05 18:06 | RAD_ITS ---
STUDY: X-RAY - LUMBAR SPINE REASON FOR EXAM: Female, 77 years old. Status post fall. TECHNIQUE: 3 view(s) of the lumbar spine were obtained. COMPARISON: None FINDINGS: Normal lumbar lordosis. There is no substantial scoliosis. There is a normal alignment of the vertebrae. Normal vertebral bodies and endplates. Normal disc space heights. There is extensive atherosclerotic calcification of the aorta, with a 3.5 cm aneurysm of the distal abdominal aorta. RAD/Lumbar Spine 2 or 3 Views IMPRESSION: 1. No lumbar fracture or subluxation. 2. A 3.5 cm abdominal aortic aneurysm. Electronically Signed: Faviola Zheng MD at 19:00 EDT Tel , Service support ,
--- NOTE | 2018-10-05 18:06 | RAD_ITS ---
STUDY: X-RAY - PELVIS REASON FOR EXAM: Female, 77 years old. Fall last night on buttocks. Pain. TECHNIQUE: One view of the pelvis was obtained. COMPARISON: None. FINDINGS: There is a non-specific bowel gas pattern. There are phleboliths and vascular calcification. There is generalized osteopenia. Normal bilateral iliac wings, sacroiliac joints and visualized sacrum. Normal visualized bilateral superior and inferior pubic rami. Normal pubic symphysis. Normal ischial tuberosities. Normal visualized right femoral head. Normal right acetabulum. Normal right hip joint. Normal visualized left femoral head. Normal left acetabulum. Normal left hip joint. RAD/Pelvis 1 or 2 Views IMPRESSION: Osteopenia with no acute finding. Electronically Signed: Suresh Tanner MD at 19:08 EDT , Service support ,
--- NOTE | 2018-10-05 18:09 | ED.DCSUM_ITS ---
- ER Visit Summary Date of Service: 10/05/18 Chief Complaint: Fall with lower back pain History of Present Illness: The patient is a 77 F, A. fib and renal insufficiency. Patient has recently had balance problems and last night balance fell hitting her back against an end table during her buttocks. No LOC. She denies any headache or neck pain. States it hurts more to walk with her lower back. No numbness or weakness. Physical Examination: Elderly female no acute distress. By 2 family members. Vital signs are stable and afebrile. H EENT exam unremarkable. Atraumatic. Pupils are round reactive light. She does have a lid droop of the right eye which is chronic. Normal speech. No bruising or hematomas. C-spine nontender. Trachea midline. Lungs clear to auscultation bilaterally. Heart regular rhythm rate about 60. Chest nontender. Abdomen soft nontender. Pelvic girdle intact. She is moving all 4 extremities. Neurovascular intact. 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 Normal dorsi plantar flexion. She can flex and extend at both knees and hips. Back she complains of lower back pain is really nontender. The cervical, thoracic and lumbar spine are nontender. There is no ecchymosis or bruising. No signs of trauma. Ribs are nontender. Neurologically she is awake and alert. With no focal motor deficits. Equal symmetrical metal cut off saw operator strength. Equal symmetrical dorsi plantar flexion. Awake and alert answering questions and following commands. Test Results: Lumbar spine x-rays x3 show beni changes no acute process 3 views were obtained. Pelvis x-ray shows no acute abnormality. No fracture noted. Read by myself. Emergency Department Course and Treatment: Clinically patient looks well. Her exam is unremarkable. Repeat exam doing well will be discharged home. Treatment Plan: Ice all sore areas. Tylenol for pain. Disposition: Discharge Impression: Fall Lumbar and buttock contusion This note was generated with [employer] dictation software. It may contain incorrect words, spelling, and punctuation that were not noted in review of the chart prior to signing ED Disposition - Plan for ED Patient: Referrals: Hero Knapp MD [Primary Care Provider] -
--- NOTE | 2018-10-05 18:57 | ED.DEP ---
ED Disposition - Plan for ED Patient: Disposition: Home or Assisted Living Instructions: ED Contusion Back Referrals: Hero Knapp MD [Primary Care Provider] - 1 Week if not improving Additional Instructions: Ice all sore areas. Tylenol for pain. Follow-up with not improving.
[2018-10-05 19:21] VITALS: BP 142/79; PULSE 86; RESP 22; O2SAT 97
--- NOTE | 2018-10-05 19:22 | ED.RN ---
THIS NURSE REVIEWED D/C INSTRUCTIONS WITH PT AND SONS. PT VERBALIZED UNDERSTANDING OF INSTRUCTIONS. PT ASSISTED TO VEHICLE VIA W/C. PT DENIES FURTHER NEEDS OR QUESTIONS AT THIS TIME.
== END 2018-10-05 19:23 | disposition home or self-care (01) ==
PROVIDERS: Emergency Provider Emergency Medicine; Family Provider Family Medicine; PCP Family Medicine
DX: S30.0XXA Contusion of lower back and pelvis, initial encounter (principal); W19.XXXA Unspecified fall, initial encounter; Y93.9 Activity, unspecified; Y92.9 Unspecified place or not applicable; Y99.9 Unspecified external cause status; I48.91 Unspecified atrial fibrillation; E78.00 Pure hypercholesterolemia, unspecified; I25.10 Atherosclerotic heart disease of native coronary artery without angina pectoris; Z95.1 Presence of aortocoronary bypass graft; Z85.3 Personal history of malignant neoplasm of breast
CPT/HCPCS: 72100; 72170; 99282

== ENCOUNTER → 2018-11-22 16:30 | Outpatient (CLI) | payer MEDICARE, MEDICAID, SELFPAY ==
[2018-11-22 17:38] LABS: Hematocrit 35.6 % (37-47); Hemoglobin 10.9 g/dl (12.0-15.0); Mean Corp Hgb Conc 30.6 g/gl (32-36); Mean Corpuscular Hgb 30.6 pg (27.0-32.0); Mean Platelet Vol. 11.4 fl (6.2-12.0); Platelet Count 178 K/mm3 (150-450); RBC Distribution Width CV 13.8 % (11.6-14.6); RBC Distribution Width SD 49.9 fl (35.1-43.9); Red Blood Count 3.56 M/mm3 (4.2-5.4); White Blood Count 4.3 K/mm3 (4.4-11.0)
[2018-11-22 17:49] LABS: Scan Indicated on CBC? Y/N NO
[2018-11-22 18:11] LABS: Anion Gap 7 (5-15); BUN 20 mg/dL (7-18); BUN/Creat Ratio 11.8 RATIO (10-20); Chloride 110 mmol/L (98-107); EST Glomerular Filtration Rate 31 mL/min (>60); Est Glom Filt Rate - Afr Amer 37 mL/min (>60); Glucose 92 mg/dL (74-106); Potassium 3.9 mmol/L (3.5-5.1); Sodium Level 147 mmol/L (136-145); Thyroid Stim Hormone (TSH) 1.65 uIU/mL (0.358-3.74)
[2018-11-22 18:54] LABS: BNP,B-Type NATRIURETIC PEPTIDE 973.8 pg/mL (0-100)
== END ==
PROVIDERS: Family Provider Family Medicine; PCP Family Medicine; Visit Provider Family Medicine
DX: I50.9 Heart failure, unspecified (principal); I12.9 Hypertensive chronic kidney disease with stage 1 through stage 4 chronic kidney disease, or unspecified chronic kidney disease; N18.9 Chronic kidney disease, unspecified
CPT/HCPCS: 36415; 80048; 83880; 84443; 85027

== ENCOUNTER 2019-02-11 15:55 | Inpatient (IN) | payer MEDICARE, MEDICAID, SELFPAY ==
[2019-02-11 16:06] VITALS: BP 142/79; PULSE 63; RESP 20; TEMP 37.2; O2SAT 95
--- NOTE | 2019-02-11 16:12 | HP.PCM_ITS ---
Problem List (1) Debility Status: Acute (2) Breast cancer metastasized to brain Status: Acute (3) Atrial fibrillation Status: Chronic (4) Breast cancer in situ Status: Chronic (5) Chronic kidney disease Status: Chronic (6) Coronary artery disease Status: Chronic (7) Hypertension Status: Chronic (8) Iron deficiency anemia Status: Chronic (9) Edema Status: Chronic (10) Neuropathic pain Status: Chronic (11) Hypothyroidism Status: Chronic (12) GERD (gastroesophageal reflux disease) Status: Chronic (13) HLD (hyperlipidemia) Status: Chronic (14) Hypokalemia Status: Chronic (15) Dysphagia Status: Acute History of Present Illness Date of Admission: 02/11/19 Chief Complaint: Here for rehabilitation, strengthening, prior to disposition determination. The patient is a 78 year old Female with below past medical history and followin01/23/2019 Admitted to [facility] For right eye swelling, vision loss x few weeks. Right eyelid swollen, unable to open eye, right pupil fixed, dilated. History right occipital brain mass. 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 Decadron IV, Normal Saline IV, Keppra for brain swelling, seizure prophylaxis. MRI of brain ordered. Not on anticoagulation for atrial fibrillation due to fall risk. Neurosurgery, radiation oncology consulted for brain tumor. Hematology/Oncology consulted as well. 01/27/2019 Dr. Cooper performed right pterional craniotomy for biopsy, debulking of right skull based tumor. Biopsy showed metastatic breast cancer to brain. Speech therapy consulted for dysphagia. Radiation oncology considering Whole Brain Radiation Therapy. Fosphenytoin for seizure prophylaxis. Tube feeding via Corpak. Rocephin IV for possible urinary tract infection. Thrush treated with antifungal. Decadron taper. Patient's condition stabilized. 02/11/2019 Admit to TCU with debility, here for rehabilitation, strengthening, prior to disposition determination. Past Medical History Past Medical History (Chronic Problems): Chronic Problems (Last Updated 08/23/17 @ 10:17 by Julianne Hyatt) Atrial fibrillation (Chronic) Breast cancer in situ (Chronic) Chronic kidney disease (Chronic) Coronary artery disease (Chronic) Hypertension (Chronic) Iron deficiency anemia (Chronic) Edema (Chronic) Neuropathic pain (Chronic) Hypothyroidism (Chronic) GERD (gastroesophageal reflux disease) (Chronic) Other secondary pulmonary hypertension (Chronic) Long-term use of high-risk medication (Chronic) Atherosclerotic heart disease of [place] coronary artery without angina pectoris (Chronic) CABG x4- BRAMBILA to LAD, SVG to Ramus, SVG to OM1, SVG to RCA w/exclusion of left atrial appendage with a #35mm AtriCure Clip 11/18/15 Paroxysmal atrial fibrillation (Chronic) [facility] 02/2016; History of non-ST elevation myocardial infarction (NSTEMI) (Chronic) 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, bilateral (Chronic) Pulmonary hypertension, secondary (Chronic) Benign essential HTN (Chronic) HLD (hyperlipidemia) (Chronic) CKD (chronic kidney disease) stage 3, GFR 30-59 ml/min (Chronic) Hypokalemia (Chronic) Thyroid disease (Chronic) Cardiomyopathy, ischemic (Chronic) Systolic CHF, chronic (Chronic) Medical History: Medical History (Last Updated 08/23/17 @ 10:17 by Julianne Hyatt) Other secondary pulmonary hypertension (Chronic) I27.29 Long-term use of high-risk medication (Chronic) Z79.899 Atherosclerotic heart disease of [place] coronary artery without angina pectoris (Chronic) I25.10 CABG x4- BRAMBILA to LAD, SVG to Ramus, SVG to OM1, SVG to RCA w/exclusion of left atrial appendage with a #35mm AtriCure Clip 11/18/15 Paroxysmal atrial fibrillation (Chronic) I48.0 [facility] 02/2016; History of non-ST elevation myocardial infarction (NSTEMI) (Chronic) I25.2 Nonrheumatic tricuspid (valve) insufficiency (Chronic) I36.1 Atrial enlargement, bilateral (Chronic) I51.7 Pulmonary hypertension, secondary (Chronic) Benign essential HTN (Chronic) I10 HLD (hyperlipidemia) (Chronic) E78.5 CKD (chronic kidney disease) stage 3, GFR 30-59 ml/min (Chronic) Hypokalemia (Chronic) E87.6 Thyroid disease (Chronic) Cardiomyopathy, ischemic (Chronic) I25.5 Systolic CHF, chronic (Chronic) I50.22 Bilateral edema of lower extremity R60.0 Breast cancer C50.919 Closed nondisplaced fracture of base of fifth metacarpal bone of left hand S62.347A Carotid stenosis, right I65.21 Afib (Inactive) I48.91 Breast cancer (Inactive) C50.919 In remission CAD (coronary artery disease) (Inactive) I25.10 CHF (congestive heart failure) (Inactive) I50.9 Cardiomegaly (Inactive) I51.7 Chronic renal insufficiency (Inactive) N18.9 Closed nondisplaced fracture of base of fifth metacarpal bone of left hand (Inactive) S62.347A NSTEMI (non-ST elevated myocardial infarction) (Inactive) I21.4 Allergies codeine Allergy (Verified 02/01/18 16:10) Rash amlodipine besylate [From [facility]] Adverse Reaction (Verified 02/01/18 16:10) Pain in joints Home Medications: Ambulatory Orders Medication Instructions Recorded Gabapentin [Neurontin] 300 mg PO TID 12/03/15 Levothyroxine [Synthroid] 50 mcg PO DAILY 12/03/15 ferrous sulfate 325 mg (65 mg 325 mg PO DAILY tab 06/18/17 iron) tablet,delayed release Acetaminophen [Tylenol Extra 500 mg PO Q8H PRN PRN 02/11/19 Strength] Amiodarone HCl [Pacerone] 100 mg PO QDAY 02/11/19 Bisacodyl 10 mg NH DAILY PRN PRN 02/11/19 Dexamethasone [Decadron] 4 mg PO BID 02/11/19 Losartan Potassium 50 mg PO DAILY 02/11/19 Multivit,Calc,Mins/Iron/Folic 1 ea PO DAILY 02/11/19 [Therapeutic-M Tablet] Ondansetron [Ondansetron Odt] 4 mg PO Q6H PRN PRN 02/11/19 Phenytoin Sodium Extended 100 mg PO TID 02/11/19 [Dilantin] Pravastatin [Pravachol] 80 mg PO QHS 02/11/19 Quetiapine Fumarate [Seroquel] 25 mg PO QHS 02/11/19 hydrALAZINE [Apresoline] 75 mg PO TID 02/11/19 Surgical History: Surgical History (Last Updated 02/01/18 @ 16:11 by Greta Murray) Aortocoronary bypass status (Resolved) Onset Date: ~11/18/15 Z95.1 CABG x4- BRAMBILA to LAD, SVG to Ramus, SVG to OM1, SVG to RCA w/exclusion of left atrial appendage with a #35mm AtriCure Clip 11/18/15 History of ankle surgery Z98.890 History of mastectomy Z98.890, Z90.10 History of mastectomy Z90.10 Left ankle reconstruction S/P CABG x 4 (Inactive) Z95.1 Surgical History: coronary bypass surgery - x 4., mastectomy, - - Right craniotomy for skull based tumor. Psychiatric History: No pertinent psych hx SPECIALTY THERAPIST History: No pertinent SPECIALTY THERAPIST history Lives: Spouse/ Significant Other Smoking Status: Never smoker Tobacco Use: Non-smoker Alcohol: None Drugs: None - *Family History Maternal Family History: Family History (Last Updated 02/01/18 @ 16:13 by Greta Murray) Mother Heart disease CABG Brother Heart disease Son Heart disease History Items: Heart Disease Sibling Family History: Family History (Last Updated 02/01/18 @ 16:13 by Greta Murray) Mother Heart disease CABG Brother Heart disease Son Heart disease History Items: Heart Disease - Atrial fibrillation Review of Systems Constitutional: Denies: Chills, Fever, Weight Change HEENT: Denies: Head Aches, Sinus Congestion, Sinus Drainage Cardiovascular: Denies: Chest Pain, Palpitations Respiratory: Denies: Cough, Shortness of breath at rest, Sputum production Gastrointestinal: Denies: Abdominal Pain, Nausea, Vomiting Genitourinary: Denies: Dysuria Musculoskeletal: Denies: Joint Pain, Joint Tenderness Skin: Denies: Rash, Wounds Neurological: Denies: Numbness, Tingling, Focal weakness Psychiatric: Denies: Anxiety, Depression, Homicidal Ideations, Suicidal Ideations Hematologic/ Lymphatic: Denies: Easy Bruising, Easy Bleeding VTE Information - Inpt Only VTE Present on Admission: No VTE Mechan Device Prophylaxis: Knee High ELMER Hose VTE Pharm Prophylaxis ordered?: No Reason prophylaxis not ordered:: Medical Contraindication Patient Problems: Active and Suspected Problems (Last Updated 08/23/17 @ 10:17 by Julianne Hyatt) Debility (Acute) Breast cancer metastasized to brain (Acute) Dysphagia (Acute) - Physical Exam General: Alert, Oriented x3, Cooperative HEENT: Atraumatic, PERRLA, EOMI, Normocephalic, - - Right eye shut. Neck: Supple, No JVD, Negative Carotid Bruits Lungs: Clear to auscultation, Normal air movement Cardiovascular: Regular rate, No murmurs Abdomen: Bowel Sounds Present, Soft, Non Tender Extremities: No edema, Capillary Refill Less than 3 Seconds Skin: No rashes, No breakdown Musculoskeletal: No Tenderness to Palpation of Joints or Extremities Neurological: Cranial nerves II-XII grossly intact Psych/Mental Status: Normal Affect, Appropriate Vital Signs Temp Pulse Resp BP Pulse Ox 98.9 F 63 20 H 142/79 H 95 02/11/19 16:06 02/11/19 16:06 02/11/19 16:06 02/11/19 16:06 02/11/19 16:06 Oxygen Delivery Method Room Air Body Mass Index (BMI) 29.2 Assessment/Plan All Active Problems (Last Updated 02/01/18 @ 16:11 by Greta Murray) Debility (Acute) Breast cancer metastasized to brain (Acute) Dysphagia (Acute) Aortocoronary bypass status (Resolved ~11/18/15) 78 year old female with below past medical history hospitalized for vision loss secondary to brain tumor, underwent craniotomy, debulking/biopsy 01/27/2019 showing metastatic breast cancer to brain, complicated by dysphagia requiring Corpak for tubefeeding, tubefeeding subsequently discontinued, admitted to TCU with debility, here for rehabilitation, strengthening, prior to disposition determination. * Debility - PT/OT. * Pain - Tylenol 1000MG Q6H PRN mild pain, Tramadol 50MG Q6H PRN moderate pain, Oxycodone 5MG Q4H PRN severe pain. * Bowel - Miralax 17GM daily, Senna/colace 1 tablet twice daily, Dulcolax 10MG NH daily PRN. * Pneumonia vaccination - Administer Prevnar 13 and/or Pneumovax 23 as necessary. * DVT prophylaxis - Hold, due to recent brain surgery. * Atrial Fibrillation - Amiodarone 100MG daily, anticoagulation on hold due to fall risk. * breast cancer with brain metastasis - Decadron taper, follow up with radiation oncology, hematology oncology for further treatment options. * Seizure prophylaxis - Dilantin 100MG TID. * Iron deficiency anemia - Ferrex 150MG daily. * Neuropathic pain - Gabapentin 300MG TID. * Hypertension - Hydralazine 75MG TID, Losartan 50MG daily. * Hyperlipidemia - Pravastatin 80MG QHS. * Hypothyroidism - Levothyroxine 50MCG daily. * Nutrition - MVI daily. * Nausea - Zofran 4MG Q6H PRN. * Behavioral disorder - Seroquel 12.5MG QHS x 7 days, then stop.
[2019-02-11 16:22] VITALS: BMI 29.1
[2019-02-11 16:24] VITALS: BMI 29.1
[2019-02-11 17:44] VITALS: BP 142/79; PULSE 63
[2019-02-11] MEDS: Phenytoin Na 100 MG Capsule PO (17:44)
[2019-02-11] MEDS: dexAMETHasone 4 MG Tablet PO (17:44)
[2019-02-11] MEDS: hydrALAZINE 25 MG Tablet 75 MG PO (17:44)
--- NOTE | 2019-02-11 19:40 | NURSING ---
pt arrived at 1555 from [facility] via cot
--- NOTE | 2019-02-11 19:41 | NURSING ---
called [facility] to clarify order to stop phenytoin after 3 doses. Nurse contacted ordering provider and verified that this was an error, 100 mg phenytoin ER TID without stop date
[2019-02-11] MEDS: Gabapentin 300 MG Capsule PO (21:32)
[2019-02-11] MEDS: Pravastatin 80 MG Tablet PO (21:33)
[2019-02-11] MEDS: QUEtiapine 25 MG Tablet PO (21:33)
[2019-02-12 05:47] VITALS: BP 152/63; PULSE 61
[2019-02-12] MEDS: Gabapentin 300 MG Capsule PO ×3 (05:47→21:18)
[2019-02-12] MEDS: hydrALAZINE 25 MG Tablet 75 MG PO ×3 (05:47→21:20)
[2019-02-12] MEDS: Losartan Potassium 50 MG Tablet PO (05:48)
[2019-02-12] MEDS: Amiodarone 200 MG Tablet 100 MG PO (05:48)
[2019-02-12] MEDS: Levothyroxine 50 MCG Tablet PO (05:49)
[2019-02-12 07:39] LABS: Absolute Lymphocyte Count 0.51 X10^3/uL (0.83-4.51); Absolute Neutrophil Count 6.3 X10^3/uL (2.0-7.7); Basophil# 0.01 X10^3/uL; Basophil% 0.1 % (0-1); Eosinophil# 0.08 X10^3/uL; Eosinophils% 1.1 % (0-5); Hematocrit 29.6 % (37-47); Hemoglobin 9.2 g/dL (12.0-15.0); Lymphocyte # 0.51 X10^3/ul (4.0); Lymphocyte % 6.9 % (19-41); Mean Corp Hgb Conc 31.1 g/dL (32-36); Mean Corpuscular Hgb 32.1 pg (27.0-32.0); Mean Corpuscular Volume 103.1 fL (81-99); Mean Platelet Vol. 10.2 fl (6.2-12.0); Monocyte# 0.42 X10^3/uL; Monocyte% 5.7 % (0-10); NRBC Flagged by Analyzer 0 % (0-5); Neutrophil # 6.34 X10^3/uL (2.7-7.7); Neutrophil % 85.8 % (47-70); POSITIVE DIFFERENTIAL YES; Platelet Count 154 K/mm3 (150-450); RBC Distribution Width CV 14.8 % (11.6-14.6); RBC Distribution Width SD 55.3 fl (35.1-43.9); Red Blood Count 2.87 M/mm3 (4.2-5.4); White Blood Count 7.4 K/mm3 (4.4-11.0)
[2019-02-12 07:48] LABS: Differential Indicated SCAN CRITERIA MET
[2019-02-12 07:49] LABS: Anion Gap 6 (5-15); BUN 28 mg/dL (7-18); BUN/Creat Ratio 22.4 RATIO (10-20); Calcium,Total 8.5 mg/dL (8.5-10.1); Chloride 113 mmol/L (98-107); Creatinine, Serum 1.25 mg/dL (0.55-1.02); EST Glomerular Filtration Rate 44 mL/min (>60); Est Glom Filt Rate - Afr Amer 53 mL/min (>60); Estimated Creatinine Clearance 27.54 ml/min; Glucose 98 mg/dL (74-106); Potassium 4.5 mmol/L (3.5-5.1); Sodium Level 147 mmol/L (136-145)
[2019-02-12 08:13] LABS: Basophilic Stippling RARE; Hypochromasia 1+; Macrocytosis RARE; Platelet Estimate ADEQUATE (ADEQ)
[2019-02-12] MEDS: Phenytoin Na 100 MG Capsule PO ×3 (08:39→17:00)
[2019-02-12] MEDS: dexAMETHasone 4 MG Tablet 2 MG PO ×3 (08:39→17:00)
[2019-02-12] MEDS: Iron Polysaccharide Complex 150 MG CAPSULE PO (08:39)
[2019-02-12] MEDS: Tuberculin,Purif.prot.deriv. 50 TU/ML Vial 5 ML ID (09:49)
[2019-02-12 11:40] VITALS: BP 146/70; PULSE 70
[2019-02-12] MEDS: Multivitamins,Ther W-Minerals Tablet 1 TABLET PO (11:42)
--- NOTE | 2019-02-12 13:49 | PHA.CONS_ITS ---
<Leandro Doran - Last Filed: 02/12/19 13:49> Progress Note - Pharmacy Subjective: [] TCU Admission Objective: Allergies codeine Allergy (Verified 02/01/18 16:10) Rash amlodipine besylate [From [facility]] Adverse Reaction (Verified 02/01/18 16:10) Pain in joints Current Medications Generic Name Dose Route Start Last Admin Trade Name Freq PRN Reason Stop Dose Admin Acetaminophen 1,000 mg 02/11/19 16:55 Tylenol PO Q6H PRN PRN MILD PAIN (1-3/10) Amiodarone HCl 100 mg 02/12/19 06:00 02/12/19 05:48 Cordarone PO 100 mg DAILY ANNETTA Administration Bisacodyl 10 mg 02/11/19 16:33 Dulcolax RECTAL DAILY PRN PRN constipation Dexamethasone 2 mg 02/12/19 08:00 02/12/19 11:41 Decadron PO 02/15/19 17:46 2 mg TIDCM ANNETTA Administration Dexamethasone 2 mg 02/16/19 08:00 Decadron PO BIDCM ANNETTA Gabapentin 300 mg 02/11/19 22:00 02/12/19 11:40 Neurontin PO 300 mg TID ANNETTA Administration Hydralazine HCl 75 mg 02/11/19 17:00 02/12/19 11:40 Apresoline PO 75 mg TID ANNETTA Administration Levothyroxine Sodium 50 mcg 02/12/19 06:00 02/12/19 05:49 Synthroid PO 50 mcg DAILY@0600 ANNETTA Administration Losartan Potassium 50 mg 02/12/19 06:00 02/12/19 05:48 Cozaar PO 50 mg DAILY ANNETTA Administration Multivitamins/Minerals 1 tablet 02/12/19 12:00 02/12/19 11:42 Multivitamin With Minerals PO 1 tablet DAILY@1200 [facility] Administration Ondansetron HCl 4 mg 02/11/19 16:33 Zofran Odt PO Q6H PRN PRN NAUSEA Oxycodone HCl 5 mg 02/11/19 16:55 Oxyir PO Q4H PRN PRN SEVERE PAIN (6-10/10) Phenytoin Sodium 100 mg 02/11/19 17:45 02/12/19 11:41 Dilantin PO 100 mg TIDCM ANNETTA Administration Polyethylene Glycol 17 gm 02/12/19 06:00 02/12/19 05:47 Miralax PO Not Given DAILY ANNETTA Polysaccharide Iron Complex 150 mg 02/12/19 08:00 02/12/19 08:39 Ferrex 150 PO 150 mg DAILYCM ANNETTA Administration Pravastatin Sodium 80 mg 02/11/19 22:00 02/11/19 21:33 Pravachol PO 80 mg QHS ANNETTA Administration Quetiapine Fumarate 25 mg 02/11/19 22:00 02/11/19 21:33 Seroquel PO 25 mg QHS ANNETTA Administration Senna/Docusate Sodium 1 tablet 02/11/19 18:00 02/12/19 11:42 Senokot-S, Gavi-Colace PO Not Given BID ANNETTA Tramadol HCl 50 mg 02/11/19 16:54 Ultram PO Q6H PRN PRN MODERATE PAIN (4-5/10) Tuberculin PPD 5 tu 02/19/19 10:00 Tubersol, Aplisol, Ppd ID 02/19/19 10:01 X1 ONE Problem List (Last Updated 08/23/17 @ 10:17 by Julianne Hyatt) Debility (Acute) Breast cancer metastasized to brain (Acute) Atrial fibrillation (Chronic) Breast cancer in situ (Chronic) Chronic kidney disease (Chronic) Coronary artery disease (Chronic) Hypertension (Chronic) Iron deficiency anemia (Chronic) Edema (Chronic) Neuropathic pain (Chronic) Hypothyroidism (Chronic) GERD (gastroesophageal reflux disease) (Chronic) Dysphagia (Acute) Vital Signs Temp Pulse Resp BP Pulse Ox 98.9 F 70 20 H 146/70 H 95 02/11/19 16:06 02/12/19 11:40 02/11/19 16:06 02/12/19 11:40 02/11/19 16:06 Oxygen Delivery Method Room Air Weight: 69.9 kg Body Mass Index (BMI) 29.1 Sodium 147 mmol/L (136-145) H 02/12/19 06:55 Potassium 4.5 mmol/L (3.5-5.1) 02/12/19 06:55 Chloride 113 mmol/L (98-107) H 02/12/19 06:55 Carbon Dioxide 28.0 mmol/L (21.0-32.0) 02/12/19 06:55 6 (5-15) 02/12/19 06:55 BUN 28 mg/dL (7-18) H 02/12/19 06:55 1.25 mg/dL (0.55-1.02) H 02/12/19 06:55 Est GFR (MDRD) Af Amer 53 mL/min (>60) L 02/12/19 06:55 Est GFR (MDRD) Non-Af 44 mL/min (>60) L 02/12/19 06:55 22.4 RATIO (10-20) H 02/12/19 06:55 Glucose 98 mg/dL (74-106) 02/12/19 06:55 Assessment/Plan: *1) Pain: Acetaminophen 1000mg po q6h prn for mild pain, Oxycodone 5mg po q4h prn for severe pain, Tramadol 50mg po q6h prn for moderate pain. Please cont inue to monitor prn usage and for signs/symptoms of increased/decreased pain. --Tramadol has a listed precaution in using it in patients with seizure disorders. Tramadol can lower the seizure threshold. Please re-evaluate the continue use of Tramadol. Thanks 2) Neuropathic Pain: Gabapentin 300mg po tid. Gabapentin is on the BEERS list. Gabapentin is recommended to be avoided unless safer alternatives are not available. It can cause ataxia, impaired psychomotor function, syncope, and increased falls. 3) Hyperlipidemia: Pravastatin 80mg po qhs. Pt's last LFTs and Lipid panel (03/2018) were within normal limits. Please continue to monitor. 4) Hypothyroidism: Levothyroxine 50mcg po daily. Pt's last TSH was within normal limits. Please continue to monitor *5) Iron Deficiency Anemia: Ferrex 150mg po daily with food. Levothyroxine should be administered 4 hours apart from any oral iron salt. Please consider changing to administration time of Ferrex 150 to 10am. Thanks *6) Seizure Prophylaxis: Phenytoin 100mg po tid with food. Please consider checking a serum Phenytoin level. Thanks 7) Hypertension: Hydralazine 75mg po tid, Losartan 50mg po daily. Pt's SrCr is 1.25, BUN is 28, and K+ is 4.5. Please continue to monitor. Pt's pulse rate and rhythm is of normal rate and rhythm. Please continue to monitor. Pt's average blood pressure is 145.5/72.7. Please continue to monitor Psychotropic Medications: Seroquel 25mg po qhs for behavioral disorder. See note about possible GDR Unnecessary Medications: none Bowel Regimen: Bisacodyl 10mg rectally daily prn for constipation, Miralax 17gm po daily, Senna/Docusate 1 tablet po bid. Please continue to monitor prn usage and for signs/symptoms of constipation/diarrhea Date of Note:: 02/12/19 - Provider Comments Provider responsibility: Provider responsible to enter orders to implement recommendations <Nico Naranjo Chi - Last Filed: 02/13/19 08:02> Progress Note - Pharmacy Subjective: [] Objective: Allergies codeine Allergy (Verified 02/01/18 16:10) Rash amlodipine besylate [From [facility]] Adverse Reaction (Verified 02/01/18 16:10) Pain in joints Current Medications Generic Name Dose Route Start Last Admin Trade Name Freq PRN Reason Stop Dose Admin Acetaminophen 1,000 mg 02/11/19 16:55 Tylenol PO Q6H PRN PRN MILD PAIN (1-3/10) Amiodarone HCl 100 mg 02/12/19 06:00 02/13/19 05:14 Cordarone PO 100 mg DAILY ANNETTA Administration Bisacodyl 10 mg 02/11/19 16:33 Dulcolax RECTAL DAILY PRN PRN constipation Dexamethasone 2 mg 02/12/19 08:00 02/12/19 17:00 Decadron PO 02/15/19 17:46 2 mg TIDCM ANNETTA Administration Dexamethasone 2 mg 02/16/19 08:00 Decadron PO BIDCM ANNETTA Gabapentin 300 mg 02/11/19 22:00 02/13/19 05:13 Neurontin PO 300 mg TID ANNETTA Administration Hydralazine HCl 75 mg 02/11/19 17:00 02/13/19 05:13 Apresoline PO 75 mg TID ANNETTA Administration Levothyroxine Sodium 50 mcg 02/12/19 06:00 02/13/19 05:15 Synthroid PO 50 mcg DAILY@0600 ANNETTA Administration Losartan Potassium 50 mg 02/12/19 06:00 02/13/19 05:14 Cozaar PO 50 mg DAILY ANNETTA Administration Multivitamins/Minerals 1 tablet 02/12/19 12:00 02/12/19 11:42 Multivitamin With Minerals PO 1 tablet DAILY@1200 ANNETTA Administration Ondansetron HCl 4 mg 02/11/19 16:33 Zofran Odt PO Q6H PRN PRN NAUSEA Oxycodone HCl 5 mg 02/11/19 16:55 Oxyir PO Q4H PRN PRN SEVERE PAIN (6-10/10) Phenytoin Sodium 100 mg 02/11/19 17:45 02/12/19 17:00 Dilantin PO 100 mg TIDCM [facility] Administration Polyethylene Glycol 17 gm 02/12/19 06:00 02/13/19 05:13 Miralax PO Not Given DAILY [facility] Polysaccharide Iron Complex 150 mg 02/12/19 08:00 02/12/19 08:39 Ferrex 150 [facility] Administration Pravastatin Sodium 80 mg 02/11/19 22:00 02/12/19 21:18 Pravachol PO 80 mg QHS [facility] Administration Quetiapine Fumarate 25 mg 02/11/19 22:00 02/12/19 21:18 Seroquel PO 25 mg QHS [facility] Administration Senna/Docusate Sodium 1 tablet 02/11/19 18:00 02/13/19 05:15 Senokot-S, Gavi-Colace PO Not Given BID [facility] Tramadol HCl 50 mg 02/11/19 16:54 Ultram PO Q6H PRN PRN MODERATE PAIN (4-5/10) Tuberculin PPD 5 tu 02/19/19 10:00 Tubersol, Aplisol, Ppd ID 02/19/19 10:01 X1 ONE Problem List (Last Updated 08/23/17 @ 10:17 by Julianne Hyatt) Debility (Acute) Breast cancer metastasized to brain (Acute) Atrial fibrillation (Chronic) Breast cancer in situ (Chronic) Chronic kidney disease (Chronic) Coronary artery disease (Chronic) Hypertension (Chronic) Iron deficiency anemia (Chronic) Edema (Chronic) Neuropathic pain (Chronic) Hypothyroidism (Chronic) GERD (gastroesophageal reflux disease) (Chronic) Dysphagia (Acute) Vital Signs Temp Pulse Resp BP Pulse Ox 97.5 F L 64 20 H 132/56 H 94 02/12/19 16:00 02/13/19 05:13 02/12/19 16:00 02/13/19 05:13 02/12/19 16:00 Oxygen Delivery Method Room Air Weight: 69.9 kg Body Mass Index (BMI) 29.1 Sodium 147 mmol/L (136-145) H 02/12/19 06:55 Potassium 4.5 mmol/L (3.5-5.1) 02/12/19 06:55 Chloride 113 mmol/L (98-107) H 02/12/19 06:55 Carbon Dioxide 28.0 mmol/L (21.0-32.0) 02/12/19 06:55 6 (5-15) 02/12/19 06:55 BUN 28 mg/dL (7-18) H 02/12/19 06:55 1.25 mg/dL (0.55-1.02) H 02/12/19 06:55 Est GFR (MDRD) Af Amer 53 mL/min (>60) L 02/12/19 06:55 Est GFR (MDRD) Non-Af 44 mL/min (>60) L 02/12/19 06:55 22.4 RATIO (10-20) H 02/12/19 06:55 Glucose 98 mg/dL (74-106) 02/12/19 06:55 Assessment/Plan: Psychotropic Medications: Unnecessary Medications: Bowel Regimen: - Provider Comments Provider responsibility: Provider responsible to enter orders to implement recommendations Provider Comments to Recommendations by Pharmacy: Agree
[2019-02-12 16:00] VITALS: BP 103/62; PULSE 61; RESP 20; TEMP 36.4; O2SAT 94
[2019-02-12] MEDS: QUEtiapine 25 MG Tablet PO (21:18)
[2019-02-12] MEDS: Pravastatin 80 MG Tablet PO (21:18)
[2019-02-12 21:20] VITALS: BP 138/52; PULSE 62
[2019-02-13 05:13] VITALS: BP 132/56; PULSE 64
[2019-02-13] MEDS: hydrALAZINE 25 MG Tablet 75 MG PO ×3 (05:13→20:58)
[2019-02-13] MEDS: Gabapentin 300 MG Capsule PO ×3 (05:13→20:58)
[2019-02-13] MEDS: Losartan Potassium 50 MG Tablet PO (05:14)
[2019-02-13] MEDS: Amiodarone 200 MG Tablet 100 MG PO (05:14)
[2019-02-13] MEDS: Levothyroxine 50 MCG Tablet PO (05:15)
[2019-02-13] MEDS: dexAMETHasone 4 MG Tablet 2 MG PO ×3 (08:48→17:38)
[2019-02-13] MEDS: Phenytoin Na 100 MG Capsule PO ×3 (08:48→17:39)
[2019-02-13] MEDS: Iron Polysaccharide Complex 150 MG CAPSULE PO (09:36)
[2019-02-13 09:40] VITALS: PULSE 69; O2SAT 96
[2019-02-13] MEDS: Multivitamins,Ther W-Minerals Tablet 1 TABLET PO (11:49)
[2019-02-13 14:57] VITALS: BP 117/43; PULSE 66
[2019-02-13 15:56] VITALS: BP 117/43; PULSE 66; RESP 18; TEMP 37; O2SAT 98
[2019-02-13] MEDS: Senna/Docusate Sodium 1 Tablet PO (17:38)
[2019-02-13 20:58] VITALS: BP 127/51; PULSE 73
[2019-02-13] MEDS: QUEtiapine 25 MG Tablet 12.5 MG PO (20:59)
[2019-02-13] MEDS: Pravastatin 80 MG Tablet PO (21:00)
[2019-02-14] MEDS: Amiodarone 200 MG Tablet 100 MG PO (05:16)
[2019-02-14 05:18] VITALS: BP 120/42; PULSE 71
[2019-02-14] MEDS: Levothyroxine 50 MCG Tablet PO (05:18)
[2019-02-14] MEDS: Losartan Potassium 50 MG Tablet PO (05:18)
[2019-02-14] MEDS: Senna/Docusate Sodium 1 Tablet PO (05:18)
[2019-02-14] MEDS: hydrALAZINE 25 MG Tablet 75 MG PO (05:18)
[2019-02-14] MEDS: Polyethylene Glycol 3350 17 GM PACKET PO (05:19)
[2019-02-14] MEDS: Gabapentin 300 MG Capsule PO ×3 (05:19→20:17)
[2019-02-14 06:43] LABS: Phenytoin (Dilantin) Level 11.6 mL (10.0-20.0)
[2019-02-14] MEDS: Phenytoin Na 100 MG Capsule PO ×3 (08:01→17:59)
[2019-02-14] MEDS: dexAMETHasone 4 MG Tablet 2 MG PO ×3 (08:01→17:59)
[2019-02-14] MEDS: Iron Polysaccharide Complex 150 MG CAPSULE PO (09:04)
[2019-02-14] MEDS: Acetaminophen 500 MG Tablet 1000 MG PO (09:07)
[2019-02-14] MEDS: Multivitamins,Ther W-Minerals Tablet 1 TABLET PO (11:56)
[2019-02-14 14:00] VITALS: BP 110/46; PULSE 67
--- NOTE | 2019-02-14 15:16 | CHAPLAIN ---
Type of Pastoral Visit _x__ Initial Visit ___ Follow-up Visit ___ On-call Visit ___ General Patient Visit ___ Spiritual Assessment ___ Family Conference ___ Bereavement ___ Rapid Response ___ Code Blue ___ Other (describe below) Pastoral Care Referral From _x__ Patient ___ Family ___ Nurse ___ Physician ___ Airplane Inspector ___ Senior Sql Server Developer ___ Other (describe below) Sacrament/Intervention _x__ Active listening ___ Anointing ___ Gnosticism ___ Bereavement ___ Communion _x__ Connie exploration ___ _x__ Life review _x__ Prayer ___ Reconciliation ___ Sacrament of Sick _x__ Supportive presence ___ Wedding ___ Other (describe below) Pastoral Comments
[2019-02-14 16:00] VITALS: BP 136/55; PULSE 65; RESP 20; TEMP 36.4; O2SAT 99
--- NOTE | 2019-02-14 18:18 | NURSING ---
New order to D/C luque tomorrow morning and start voiding trials.
[2019-02-14] MEDS: Pravastatin 80 MG Tablet PO (20:17)
[2019-02-14 22:30] VITALS: BP 123/43; PULSE 71
[2019-02-14] MEDS: QUEtiapine 25 MG Tablet 12.5 MG PO (22:31)
[2019-02-15] MEDS: Polyethylene Glycol 3350 17 GM PACKET PO (05:28)
[2019-02-15 05:29] VITALS: BP 128/53; PULSE 79
[2019-02-15] MEDS: Losartan Potassium 50 MG Tablet PO (05:29)
[2019-02-15] MEDS: Iron Polysaccharide Complex 150 MG CAPSULE PO (05:29)
[2019-02-15] MEDS: Levothyroxine 50 MCG Tablet PO (05:30)
[2019-02-15] MEDS: Amiodarone 200 MG Tablet 100 MG PO (05:30)
[2019-02-15] MEDS: Senna/Docusate Sodium 1 Tablet PO ×2 (05:30→17:34)
[2019-02-15] MEDS: Gabapentin 300 MG Capsule PO ×3 (05:30→20:49)
--- NOTE | 2019-02-15 05:48 | NURSING ---
luque catheter removed. tip intact and pt tolerated well. pt aware to call staff for restroom assistance. call light within reach.
--- NOTE | 2019-02-15 08:12 | NURSING ---
New order to D/C hydralazine and increase Losartan to 100mg.
[2019-02-15] MEDS: dexAMETHasone 4 MG Tablet 2 MG PO ×3 (08:20→17:34)
[2019-02-15] MEDS: Phenytoin Na 100 MG Capsule PO ×3 (08:20→17:34)
--- NOTE | 2019-02-15 10:50 | CASEMGMT ---
Social Work IDT met with patient for care plan meeting. Discussed with pt her progress thus far in therapy. Pt is min to max with ADLS, sup. for bed mobility, CGA to stand, but min to mod assist to walk, pt is fall risk as she tends to lean backwards d/t poor balance. Pt lives at home with son and grandsons. Son works during the day, but pt sates her 3 grandsons are there throughout the day to assist with any thing she needs - 2 steps to enter and has a 1st floor set up. Will continue to work with pt to improvement and work toward projected discharge date of 03/03. guide visitor left message with son of meeting content, per his request. Will continue to follow for discharge planning. PEYMAN LunaW
[2019-02-15] MEDS: Multivitamins,Ther W-Minerals Tablet 1 TABLET PO (12:03)
[2019-02-15] MEDS: QUEtiapine 25 MG Tablet 12.5 MG PO (20:47)
[2019-02-15] MEDS: Pravastatin 80 MG Tablet PO (20:47)
--- NOTE | 2019-02-16 02:40 | NURSING ---
Pt voided at 0200, 250cc. Bladder scanned for >587. Pt straight cathed for 800cc. Urine yellow and clear. Pt tolerated well.
[2019-02-16] MEDS: Polyethylene Glycol 3350 17 GM PACKET PO (05:29)
[2019-02-16] MEDS: Amiodarone 200 MG Tablet 100 MG PO (05:29)
[2019-02-16] MEDS: Gabapentin 300 MG Capsule PO ×3 (05:30→20:43)
[2019-02-16] MEDS: Senna/Docusate Sodium 1 Tablet PO ×2 (05:30→17:05)
[2019-02-16] MEDS: Levothyroxine 50 MCG Tablet PO (05:30)
[2019-02-16] MEDS: Iron Polysaccharide Complex 150 MG CAPSULE PO (05:30)
[2019-02-16] MEDS: Losartan Potassium 100 MG Tablet PO (05:30)
--- NOTE | 2019-02-16 07:12 | NURSING ---
Pt voided in toilet and missed urinary hat. Pt bladder scanned >577. Pt straight cathed for 650cc of clear, light yellow urine. Pt tolerated well.
[2019-02-16] MEDS: Phenytoin Na 100 MG Capsule PO ×3 (07:57→17:05)
[2019-02-16] MEDS: dexAMETHasone 4 MG Tablet 2 MG PO ×2 (07:57→17:04)
[2019-02-16] MEDS: Multivitamins,Ther W-Minerals Tablet 1 TABLET PO (12:31)
--- NOTE | 2019-02-16 16:30 | NURSING ---
GREEN END WORKER found pt sitting on floor outside of BR door in room. Pt denies hitting head, no injury noted to head. small abrasion/redness to LT upper back. all other skin intact. Pt was going to BR and did not call for assist. pressure sensitive alarm applied to bed and chair. Dr Naranjo notified, no new orders. will continue to monitor. Pt was incont of stool. Lilo, rehabilitation therapist notified. pt alert & oriented.
[2019-02-16 16:40] VITALS: BP 122/52; PULSE 72; RESP 18; TEMP 36.9; O2SAT 96
[2019-02-16] MEDS: Tamsulosin HCl 0.4 MG Capsule PO (17:06)
[2019-02-16] MEDS: QUEtiapine 25 MG Tablet 12.5 MG PO (20:43)
[2019-02-16] MEDS: Pravastatin 80 MG Tablet PO (20:44)
--- NOTE | 2019-02-17 04:24 | NURSING ---
Bladder scan >584 after pt assisted to restroom in attempt to void, pt voided scant amt. Pt straight cathed for 750cc of clear, yellow urine.
[2019-02-17] MEDS: Polyethylene Glycol 3350 17 GM PACKET PO (04:28)
[2019-02-17] MEDS: Losartan Potassium 100 MG Tablet PO (04:28)
[2019-02-17] MEDS: Gabapentin 300 MG Capsule PO ×3 (04:28→20:36)
[2019-02-17] MEDS: Amiodarone 200 MG Tablet 100 MG PO (04:28)
[2019-02-17] MEDS: Senna/Docusate Sodium 1 Tablet PO ×2 (04:29→18:05)
[2019-02-17] MEDS: Iron Polysaccharide Complex 150 MG CAPSULE PO (04:29)
[2019-02-17] MEDS: Levothyroxine 50 MCG Tablet PO (04:29)
[2019-02-17] MEDS: dexAMETHasone 4 MG Tablet 2 MG PO ×2 (08:30→18:05)
[2019-02-17] MEDS: Phenytoin Na 100 MG Capsule PO ×3 (08:30→18:05)
--- NOTE | 2019-02-17 08:39 | MDS.RN ---
Pain interview for quirino 02/18/19 completed.
--- NOTE | 2019-02-17 08:49 | CASEMGMT ---
Social Work BIMS and PHQ-9 completed for MDS assessment. Louann Wilder, MOTOR BOSS PROGRAM THERAPIST
[2019-02-17] MEDS: Multivitamins,Ther W-Minerals Tablet 1 TABLET PO (11:22)
[2019-02-17 15:36] VITALS: BP 113/49; PULSE 67; RESP 18; TEMP 37; O2SAT 97
[2019-02-17] MEDS: Tamsulosin HCl 0.4 MG Capsule PO (18:05)
[2019-02-17] MEDS: QUEtiapine 25 MG Tablet 12.5 MG PO (20:36)
[2019-02-17] MEDS: Pravastatin 80 MG Tablet PO (20:37)
[2019-02-18] MEDS: Amiodarone 200 MG Tablet 100 MG PO (04:33)
[2019-02-18] MEDS: Iron Polysaccharide Complex 150 MG CAPSULE PO (04:33)
[2019-02-18] MEDS: Gabapentin 300 MG Capsule PO ×3 (04:34→21:45)
[2019-02-18] MEDS: Levothyroxine 50 MCG Tablet PO (04:34)
[2019-02-18] MEDS: Losartan Potassium 100 MG Tablet PO (05:03)
[2019-02-18] MEDS: dexAMETHasone 4 MG Tablet 2 MG PO ×2 (08:13→16:45)
[2019-02-18] MEDS: Phenytoin Na 100 MG Capsule PO ×3 (08:13→16:46)
[2019-02-18] MEDS: Multivitamins,Ther W-Minerals Tablet 1 TABLET PO (11:22)
[2019-02-18 14:18] VITALS: BP 141/61; PULSE 76; RESP 16; TEMP 37.1; O2SAT 98
[2019-02-18] MEDS: Tamsulosin HCl 0.4 MG Capsule PO (16:46)
[2019-02-18] MEDS: Senna/Docusate Sodium 1 Tablet PO (16:46)
[2019-02-18] MEDS: QUEtiapine 25 MG Tablet 12.5 MG PO (21:45)
[2019-02-18] MEDS: Pravastatin 80 MG Tablet PO (21:45)
[2019-02-18] MEDS: Menthol/Lanolin/Calamine/Znox 113 GM Tube 1 APPLIC TOPICAL (21:51)
[2019-02-19] MEDS: Iron Polysaccharide Complex 150 MG CAPSULE PO (05:54)
[2019-02-19] MEDS: Levothyroxine 50 MCG Tablet PO (05:54)
[2019-02-19] MEDS: Losartan Potassium 100 MG Tablet PO (05:54)
[2019-02-19] MEDS: Gabapentin 300 MG Capsule PO ×3 (05:54→21:08)
[2019-02-19] MEDS: Amiodarone 200 MG Tablet 100 MG PO (05:54)
[2019-02-19] MEDS: Menthol/Lanolin/Calamine/Znox 113 GM Tube 1 APPLIC TOPICAL ×2 (05:54→21:08)
[2019-02-19 06:23] LABS: Absolute Lymphocyte Count 0.62 X10^3/uL (0.83-4.51); Absolute Neutrophil Count 4.1 X10^3/uL (2.0-7.7); Basophil# 0.04 X10^3/uL; Basophil% 0.7 % (0-1); Eosinophil# 0.34 X10^3/uL; Eosinophils% 6.2 % (0-5); Hematocrit 27.7 % (37-47); Hemoglobin 8.4 g/dL (12.0-15.0); Lymphocyte # 0.62 X10^3/ul (4.0); Lymphocyte % 11.3 % (19-41); Mean Corp Hgb Conc 30.3 g/dL (32-36); Mean Corpuscular Hgb 31.7 pg (27.0-32.0); Mean Corpuscular Volume 104.5 fL (81-99); Mean Platelet Vol. 9.5 fl (6.2-12.0); Monocyte% 7.3 % (0-10); NRBC Flagged by Analyzer 0 % (0-5); Neutrophil # 4.05 X10^3/uL (2.7-7.7); Platelet Count 191 K/mm3 (150-450); RBC Distribution Width CV 15.3 % (11.6-14.6); RBC Distribution Width SD 58.5 fl (35.1-43.9); Red Blood Count 2.65 M/mm3 (4.2-5.4); White Blood Count 5.5 K/mm3 (4.4-11.0)
[2019-02-19 06:39] LABS: Anion Gap 4 (5-15); BUN 25 mg/dL (7-18); BUN/Creat Ratio 18.5 RATIO (10-20); Calcium,Total 8.8 mg/dL (8.5-10.1); Chloride 114 mmol/L (98-107); Creatinine, Serum 1.35 mg/dL (0.55-1.02); EST Glomerular Filtration Rate 40 mL/min (>60); Est Glom Filt Rate - Afr Amer 49 mL/min (>60); Glucose 70 mg/dL (74-106); Sodium Level 148 mmol/L (136-145)
[2019-02-19] MEDS: dexAMETHasone 4 MG Tablet 2 MG PO ×2 (08:29→16:33)
[2019-02-19] MEDS: Phenytoin Na 100 MG Capsule PO ×3 (08:29→16:32)
[2019-02-19] MEDS: Multivitamins,Ther W-Minerals Tablet 1 TABLET PO (11:20)
[2019-02-19] MEDS: Tuberculin,Purif.prot.deriv. 50 TU/ML Vial 5 ML ID (12:13)
[2019-02-19 14:15] VITALS: BP 116/50; PULSE 80; RESP 16; TEMP 37.1; O2SAT 95
[2019-02-19] MEDS: Senna/Docusate Sodium 1 Tablet PO (16:33)
[2019-02-19] MEDS: Tamsulosin HCl 0.4 MG Capsule PO (16:33)
[2019-02-19] MEDS: Pravastatin 80 MG Tablet PO (21:08)
[2019-02-19] MEDS: QUEtiapine 25 MG Tablet 12.5 MG PO (21:08)
[2019-02-20] MEDS: Amiodarone 200 MG Tablet 100 MG PO (05:30)
[2019-02-20] MEDS: Iron Polysaccharide Complex 150 MG CAPSULE PO (05:30)
[2019-02-20] MEDS: Senna/Docusate Sodium 1 Tablet PO ×2 (05:30→16:39)
[2019-02-20] MEDS: Menthol/Lanolin/Calamine/Znox 113 GM Tube 1 APPLIC TOPICAL ×2 (05:30→20:54)
[2019-02-20] MEDS: Losartan Potassium 100 MG Tablet PO (05:30)
[2019-02-20] MEDS: Gabapentin 300 MG Capsule PO ×3 (05:30→20:53)
[2019-02-20] MEDS: Levothyroxine 50 MCG Tablet PO (05:30)
[2019-02-20] MEDS: Phenytoin Na 100 MG Capsule PO ×3 (09:02→16:39)
[2019-02-20] MEDS: dexAMETHasone 4 MG Tablet 2 MG PO ×2 (09:02→16:40)
[2019-02-20] MEDS: Multivitamins,Ther W-Minerals Tablet 1 TABLET PO (11:22)
[2019-02-20 15:38] VITALS: BP 120/46; PULSE 64; RESP 18; TEMP 36.8; O2SAT 94
[2019-02-20] MEDS: Tamsulosin HCl 0.4 MG Capsule PO (16:39)
[2019-02-20] MEDS: Pravastatin 80 MG Tablet PO (20:53)
[2019-02-20] MEDS: QUEtiapine 25 MG Tablet 12.5 MG PO (20:54)
[2019-02-21] MEDS: Amiodarone 200 MG Tablet 100 MG PO (04:56)
[2019-02-21] MEDS: Iron Polysaccharide Complex 150 MG CAPSULE PO (04:57)
[2019-02-21] MEDS: Senna/Docusate Sodium 1 Tablet PO ×2 (04:57→17:23)
[2019-02-21] MEDS: Gabapentin 300 MG Capsule PO ×3 (04:57→20:31)
[2019-02-21] MEDS: Losartan Potassium 100 MG Tablet PO (04:57)
[2019-02-21] MEDS: Menthol/Lanolin/Calamine/Znox 113 GM Tube 1 APPLIC TOPICAL ×2 (04:57→20:32)
[2019-02-21] MEDS: Levothyroxine 50 MCG Tablet PO (04:57)
[2019-02-21] MEDS: dexAMETHasone 4 MG Tablet 2 MG PO ×2 (07:39→17:23)
[2019-02-21] MEDS: Phenytoin Na 100 MG Capsule PO ×3 (07:39→17:22)
[2019-02-21] MEDS: Multivitamins,Ther W-Minerals Tablet 1 TABLET PO (11:50)
[2019-02-21 15:26] VITALS: BP 135/45; PULSE 63; RESP 20; TEMP 37; O2SAT 96
[2019-02-21] MEDS: Tamsulosin HCl 0.4 MG Capsule PO (17:22)
[2019-02-21] MEDS: Pravastatin 80 MG Tablet PO (20:31)
[2019-02-22 05:01] VITALS: BP 141/65; PULSE 67
[2019-02-22] MEDS: Losartan Potassium 100 MG Tablet PO (05:03)
[2019-02-22] MEDS: Senna/Docusate Sodium 1 Tablet PO (05:03)
[2019-02-22] MEDS: Amiodarone 200 MG Tablet 100 MG PO (05:03)
[2019-02-22] MEDS: Gabapentin 300 MG Capsule PO ×3 (05:03→19:58)
[2019-02-22] MEDS: Iron Polysaccharide Complex 150 MG CAPSULE PO (05:04)
[2019-02-22] MEDS: Levothyroxine 50 MCG Tablet PO (05:04)
[2019-02-22] MEDS: Menthol/Lanolin/Calamine/Znox 113 GM Tube 1 APPLIC TOPICAL ×2 (05:07→19:57)
--- NOTE | 2019-02-22 06:49 | MDS.RN ---
Information for the mds was obtained from review of the clinical record, interview of resident, staff, and direct observation of resident's care.
[2019-02-22] MEDS: dexAMETHasone 4 MG Tablet 2 MG PO ×2 (08:32→17:12)
[2019-02-22] MEDS: Phenytoin Na 100 MG Capsule PO ×3 (08:32→17:12)
[2019-02-22] MEDS: Acetaminophen 500 MG Tablet 1000 MG PO (11:04)
[2019-02-22] MEDS: Multivitamins,Ther W-Minerals Tablet 1 TABLET PO (11:04)
[2019-02-22 15:49] VITALS: BP 132/65; PULSE 63; RESP 20; TEMP 36.9; O2SAT 97
--- NOTE | 2019-02-22 16:42 | NURSING ---
pt and family requesting to do radiation oncology and cancer care here at [facility] instead of in [place]. message left with Dr. Pardo's office at this time to begin process
[2019-02-22] MEDS: Tamsulosin HCl 0.4 MG Capsule PO (17:12)
[2019-02-22] MEDS: Pravastatin 80 MG Tablet PO (19:58)
[2019-02-23] MEDS: Menthol/Lanolin/Calamine/Znox 113 GM Tube 1 APPLIC TOPICAL ×2 (05:38→21:01)
[2019-02-23] MEDS: Amiodarone 200 MG Tablet 100 MG PO (05:38)
[2019-02-23] MEDS: Losartan Potassium 100 MG Tablet PO (05:39)
[2019-02-23] MEDS: Gabapentin 300 MG Capsule PO ×3 (05:39→20:58)
[2019-02-23] MEDS: Iron Polysaccharide Complex 150 MG CAPSULE PO (05:39)
[2019-02-23] MEDS: Senna/Docusate Sodium 1 Tablet PO ×2 (05:39→17:32)
[2019-02-23] MEDS: Levothyroxine 50 MCG Tablet PO (05:40)
[2019-02-23 05:41] VITALS: BP 155/66; PULSE 64
[2019-02-23] MEDS: Phenytoin Na 100 MG Capsule PO ×3 (08:42→17:32)
[2019-02-23] MEDS: dexAMETHasone 4 MG Tablet 2 MG PO ×2 (08:42→17:32)
--- NOTE | 2019-02-23 10:30 | MDS.RN ---
Pain interview for quirino 02/25/19 completed.
[2019-02-23] MEDS: Multivitamins,Ther W-Minerals Tablet 1 TABLET PO (11:56)
--- NOTE | 2019-02-23 12:54 | RAO.INPT.CON ---
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 She currently is on Decadron and appears stable. We are awaiting permanent records from [facility] to complete consultation at this time with plans to begin treatment beginning of next week. Records have been requested from [facility] and I have seen the patient and family briefly and have discussed adjuvant radiation with plans to see them again in the a.m. for definitive final consultation. Final to follow. Radiation Hx: pending Interval History: pending Review of Systems: 14 pt exam reviewed Physical Exam: deferred until am Assessment: Stage IV Breast Ca to Brain, post op debulking Multiple Comorbidities Plan: Final consultation in am with plans to begin radiation next week. Thank you for allowing me to participate in the management and care of your patient. If I may answer any questions in the interim, please do not hesitate to contact me at any time. Jus Mckenna MD Department of Radiation Oncology [facility]
[2019-02-23] MEDS: Tamsulosin HCl 0.4 MG Capsule PO (17:32)
[2019-02-23] MEDS: Pravastatin 80 MG Tablet PO (20:58)
--- NOTE | 2019-02-23 21:11 | NURSING ---
Patient bladder scanned for 546 after voiding. Per voiding trial protocol, patient straight cathed at this time for 500 cc of cloudy, win colored, strong smelling urine. Patient tolerated well. Will continue with voiding trials.
[2019-02-24] MEDS: Gabapentin 300 MG Capsule PO ×3 (06:20→20:33)
[2019-02-24] MEDS: Menthol/Lanolin/Calamine/Znox 113 GM Tube 1 APPLIC TOPICAL ×2 (06:20→20:33)
[2019-02-24] MEDS: Amiodarone 200 MG Tablet 100 MG PO (06:20)
[2019-02-24] MEDS: Senna/Docusate Sodium 1 Tablet PO ×2 (06:20→16:45)
[2019-02-24] MEDS: Losartan Potassium 100 MG Tablet PO (06:20)
[2019-02-24] MEDS: Iron Polysaccharide Complex 150 MG CAPSULE PO (06:20)
[2019-02-24] MEDS: Levothyroxine 50 MCG Tablet PO (06:20)
[2019-02-24] MEDS: Phenytoin Na 100 MG Capsule PO ×3 (06:21→16:45)
[2019-02-24] MEDS: dexAMETHasone 4 MG Tablet 2 MG PO ×2 (07:51→16:44)
--- NOTE | 2019-02-24 11:11 | CASEMGMT ---
Social Work BIMS and PHQ-9 completed for MDS assessment. Louann Wilder, TRANSMISSION MAINTENANCE SUPERVISOR BUILDING MAINTENANCE SUPERVISOR
--- NOTE | 2019-02-24 11:49 | RAO.INPT.CON ---
[facility] INPATIENT CONSULT: Patient Name: ANGEL GUZMAN Date of : 1940 Patient Status: Inpatient Attending Provider: Maribel Naranjo Account No: [id number] Initialization Date: 02/24/2019 Date of Service: 02/24/19 Records Pending.............................. 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 History of Present Illness: Admission to the hospital with altered mental status and worsening of right eye ptosis, extraocular movement, and visual impairment 01/25/2019: MRI brain with and without IV contrast revealing small area 3.0 to 3.5 x 1.5 cm skull-based right temporal tumor with accompanying edema 01/27/2019: Right PT for biopsy and debulking of right skull base cold base tumor 02/11/2019: Admitted to [facility] from [facility] Radiation Treatment History: Currently awaiting records from [facility] as patient states previously treated in 2003 at [facility] to chest wall for newly discovered breast carcinoma at that time Interval History: Following admission to [facility] TCU, patient has been undergoing rehab therapy with mild to good results now presents for postoperative radiation therapy palliatively following her debulking procedure in [place]. She states she is feeling well but family tells me she is having some memory issues as well as residual visual changes in the right eye and is weak but is ambulate in with the help of walker. Past medical history: Secondary pulmonary hypertension Chronic high risk medication ASHD PAFib RI Tricuspid inufficiency Atrial enlargement bilateral Pulmonary hypertension HTN HLP Kd Kalemia Airway disease Cardiomyopathy CHF Bilateral lower extremity edema Breast carcinoma Rotted stenosis Surgical history: CABG x4 Closed nondisplaced fracture of base of fifth metacarpal bone left hand Left mastectomy Left ankle reconstruction Recent right craniotomy Medications: See current list Allergies: Codeine, Amlopidine besylate Review of Systems: Denies chills, fever, weight change, headaches, sinus congestion, sinus drainage, chest pain, palpitations, cough, shortness of breath, abdominal pain, nausea, vomiting, dysuria, pain, joint tenderness, rash, wounds, numbness, tingling; positive: admits to lower leg swelling, weakness, right eye visual changes, ptosis; a 14 point review is negative. Height/Weight/BMI: Height: 5 ft 1 in Weight: 68.237 kg BMI: 1.76m sq. Physical Exam: ECO KARNOFSKY SCORE: 50% VS: 02/22-: P: 64 BP: 155/66 P.Ox: 97% T: 98.4 F CONSTITUTIONAL: Recovering female in no apparent distress. HEENT: Healed surgical scar longitudinally along right anterior temporal scalp. Ptosis right eye. Mucous membranes moist. No evidence of thrush or lesions within the visualized oropharynx or oral cavity. No trismus. Pupils are equal, round, and reactive to light and accommodation. Extraocular movements are intact. Sclerae are anicteric. NECK: Supple,with no thyromegaly, and non-tender. Trachea midline. No cervical or supraclavicular adenopathy noted. CARDIAC: Regular rate and rhythm. Normal S1, S2. No murmurs, rubs, or gallops. Dictating on PULMONARY/CHEST: Healed mastectomy scar left chest. Lungs are clear to auscultation and percussion bilaterally. No wheezes, rhonchi, or crackles noted. No increased work of breathing. ABDOMINAL: Abdomen soft, non-tender, non-distended. No hepatomegaly. Normoactive bowel sounds in all four quadrants. No guarding, rebound. BACK: Straight and aligned. No CVA tenderness. Axial skeleton non-tender to percussion. EXTREMITIES: Full range of motion in all four extremities, with normal strength equally and symmetrically. Bilateral edema. No clubbing. SKIN: Skin is warm and dry. No rashes or lesions evident. NEUROLOGICAL EXAM: Alert and oriented x 3. Cranial nerves II through XII are grossly intact. No focal neurological deficit. Minor aphasia. Speech is fluent. There is no upper or lower extremity sensory deficit or motor deficit. Muscle strength is 5/5 in all muscle groups. Gait and posture are steady. There are no abnormal cerebellar signs. PSYCHIATRIC: Appropriate mood and affect for the clinical situation. 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 The fact that this is a solitary lesion holds better results with higher doses, thus a 3-week course is indicated. We will simulate the patient next week plans to begin by the middle of the week. Risks and benefits were discussed with the patient/family and they continue to agree to radiation. All educational materials were also handed out to the patient. Thank you for allowing me to participate in the management and care of your patient. If I may answer any questions in the interim, please do not hesitate to contact me at any time. Jus Mckenna MD Department of Radiation Oncology [facility] Code [id number] L4: New
[2019-02-24] MEDS: Multivitamins,Ther W-Minerals Tablet 1 TABLET PO (11:53)
[2019-02-24 14:17] VITALS: BP 122/52; PULSE 72; RESP 18; TEMP 36.8; O2SAT 96
[2019-02-24] MEDS: Tamsulosin HCl 0.4 MG Capsule PO (16:45)
[2019-02-24] MEDS: Pravastatin 80 MG Tablet PO (20:33)
[2019-02-25] MEDS: Gabapentin 300 MG Capsule PO ×3 (06:12→21:48)
[2019-02-25] MEDS: Senna/Docusate Sodium 1 Tablet PO ×2 (06:12→17:35)
[2019-02-25] MEDS: Levothyroxine 50 MCG Tablet PO (06:12)
[2019-02-25] MEDS: Amiodarone 200 MG Tablet 100 MG PO (06:12)
[2019-02-25] MEDS: Iron Polysaccharide Complex 150 MG CAPSULE PO (06:12)
[2019-02-25] MEDS: Losartan Potassium 100 MG Tablet PO (06:12)
[2019-02-25] MEDS: Menthol/Lanolin/Calamine/Znox 113 GM Tube 1 APPLIC TOPICAL ×2 (06:12→21:49)
[2019-02-25] MEDS: dexAMETHasone 4 MG Tablet 2 MG PO ×2 (07:59→17:35)
[2019-02-25] MEDS: Phenytoin Na 100 MG Capsule PO ×3 (08:00→17:35)
[2019-02-25] MEDS: Multivitamins,Ther W-Minerals Tablet 1 TABLET PO (13:15)
[2019-02-25 15:14] VITALS: BP 152/77; PULSE 69; RESP 19; TEMP 36.9; O2SAT 96
[2019-02-25] MEDS: Tamsulosin HCl 0.4 MG Capsule PO (17:35)
[2019-02-25] MEDS: Pravastatin 80 MG Tablet PO (21:49)
[2019-02-26] MEDS: Losartan Potassium 100 MG Tablet PO (06:02)
[2019-02-26] MEDS: Senna/Docusate Sodium 1 Tablet PO ×2 (06:03→18:16)
[2019-02-26] MEDS: Levothyroxine 50 MCG Tablet PO (06:03)
[2019-02-26] MEDS: Menthol/Lanolin/Calamine/Znox 113 GM Tube 1 APPLIC TOPICAL ×2 (06:03→20:24)
[2019-02-26] MEDS: Amiodarone 200 MG Tablet 100 MG PO (06:04)
[2019-02-26] MEDS: Gabapentin 300 MG Capsule PO ×3 (06:05→20:24)
[2019-02-26] MEDS: Iron Polysaccharide Complex 150 MG CAPSULE PO (06:18)
[2019-02-26 07:46] LABS: Absolute Lymphocyte Count 0.71 X10^3/uL (0.83-4.51); Absolute Neutrophil Count 3.3 X10^3/uL (2.0-7.7); Basophil# 0.02 X10^3/uL; Basophil% 0.4 % (0-1); Eosinophil# 0.54 X10^3/uL; Eosinophils% 10.8 % (0-5); Hematocrit 28.6 % (37-47); Lymphocyte # 0.71 X10^3/ul (4.0); Lymphocyte % 14.2 % (19-41); Mean Corp Hgb Conc 31.5 g/dL (32-36); Mean Corpuscular Hgb 32.4 pg (27.0-32.0); Mean Corpuscular Volume 102.9 fL (81-99); Mean Platelet Vol. 9.6 fl (6.2-12.0); Monocyte# 0.44 X10^3/uL; Monocyte% 8.8 % (0-10); NRBC Flagged by Analyzer 0 % (0-5); Neutrophil # 3.28 X10^3/uL (2.7-7.7); Neutrophil % 65.4 % (47-70); Platelet Count 213 K/mm3 (150-450); RBC Distribution Width CV 15.2 % (11.6-14.6); RBC Distribution Width SD 57.5 fl (35.1-43.9); Red Blood Count 2.78 M/mm3 (4.2-5.4)
[2019-02-26 07:51] LABS: Anion Gap 4 (5-15); BUN 20 mg/dL (7-18); BUN/Creat Ratio 18.9 RATIO (10-20); Calcium,Total 8.8 mg/dL (8.5-10.1); Chloride 114 mmol/L (98-107); Creatinine, Serum 1.06 mg/dL (0.55-1.02); EST Glomerular Filtration Rate 53 mL/min (>60); Est Glom Filt Rate - Afr Amer 64 mL/min (>60); Estimated Creatinine Clearance 32.47 ml/min; Glucose 63 mg/dL (74-106); Potassium 3.3 mmol/L (3.5-5.1); Sodium Level 149 mmol/L (136-145)
[2019-02-26] MEDS: Phenytoin Na 100 MG Capsule PO ×3 (07:55→18:15)
[2019-02-26] MEDS: dexAMETHasone 4 MG Tablet 2 MG PO ×2 (07:55→18:16)
[2019-02-26 10:00] VITALS: RESP 18
[2019-02-26] MEDS: Multivitamins,Ther W-Minerals Tablet 1 TABLET PO (11:53)
[2019-02-26 12:00] VITALS: BP 108/45; PULSE 73; RESP 18; TEMP 36.6; O2SAT 98
[2019-02-26 16:00] VITALS: BP 131/56; PULSE 65; RESP 21; TEMP 37; O2SAT 98
[2019-02-26] MEDS: Tamsulosin HCl 0.4 MG Capsule PO (18:15)
[2019-02-26] MEDS: Nystatin Powder 15gm Bottle 1 APPLIC TOPICAL (20:23)
[2019-02-26] MEDS: Pravastatin 80 MG Tablet PO (20:24)
[2019-02-27] MEDS: Gabapentin 300 MG Capsule PO ×3 (05:15→20:08)
[2019-02-27] MEDS: Nystatin Powder 15gm Bottle 1 APPLIC TOPICAL ×2 (05:15→20:10)
[2019-02-27] MEDS: Menthol/Lanolin/Calamine/Znox 113 GM Tube 1 APPLIC TOPICAL ×2 (05:15→20:10)
[2019-02-27] MEDS: Senna/Docusate Sodium 1 Tablet PO (05:15)
[2019-02-27] MEDS: Levothyroxine 50 MCG Tablet PO (05:15)
[2019-02-27] MEDS: Iron Polysaccharide Complex 150 MG CAPSULE PO (05:15)
[2019-02-27] MEDS: Losartan Potassium 100 MG Tablet PO (05:15)
[2019-02-27] MEDS: Amiodarone 200 MG Tablet 100 MG PO (05:16)
[2019-02-27] MEDS: Multivitamins,Ther W-Minerals Tablet 1 TABLET PO (08:12)
[2019-02-27] MEDS: Phenytoin Na 100 MG Capsule PO ×3 (08:12→16:52)
[2019-02-27] MEDS: dexAMETHasone 4 MG Tablet 2 MG PO ×2 (08:12→16:53)
[2019-02-27 15:32] VITALS: BP 126/49; PULSE 61; RESP 20; TEMP 36.6; O2SAT 93
[2019-02-27] MEDS: Tamsulosin HCl 0.4 MG Capsule PO (16:52)
[2019-02-27] MEDS: Pravastatin 80 MG Tablet PO (20:08)
[2019-02-28] MEDS: Iron Polysaccharide Complex 150 MG CAPSULE PO (04:45)
[2019-02-28] MEDS: Losartan Potassium 100 MG Tablet PO (04:46)
[2019-02-28] MEDS: Levothyroxine 50 MCG Tablet PO (04:46)
[2019-02-28] MEDS: Gabapentin 300 MG Capsule PO ×3 (04:46→20:09)
[2019-02-28] MEDS: Amiodarone 200 MG Tablet 100 MG PO (04:46)
[2019-02-28] MEDS: Menthol/Lanolin/Calamine/Znox 113 GM Tube 1 APPLIC TOPICAL ×2 (04:49→20:10)
[2019-02-28] MEDS: Nystatin Powder 15gm Bottle 1 APPLIC TOPICAL ×2 (04:49→20:09)
[2019-02-28 06:26] LABS: Anion Gap 3 (5-15); BUN 20 mg/dL (7-18); BUN/Creat Ratio 16.5 RATIO (10-20); Calcium,Total 8.4 mg/dL (8.5-10.1); Chloride 116 mmol/L (98-107); Creatinine, Serum 1.21 mg/dL (0.55-1.02); EST Glomerular Filtration Rate 46 mL/min (>60); Est Glom Filt Rate - Afr Amer 55 mL/min (>60); Estimated Creatinine Clearance 28.45 ml/min; Glucose 101 mg/dL (74-106); Potassium 3.5 mmol/L (3.5-5.1); Sodium Level 149 mmol/L (136-145)
[2019-02-28] MEDS: Multivitamins,Ther W-Minerals Tablet 1 TABLET PO (08:08)
[2019-02-28] MEDS: dexAMETHasone 4 MG Tablet 2 MG PO ×2 (08:08→16:50)
[2019-02-28] MEDS: Phenytoin Na 100 MG Capsule PO ×3 (08:08→16:50)
[2019-02-28 14:21] VITALS: BP 141/65; PULSE 69; RESP 16; TEMP 37; O2SAT 95
--- NOTE | 2019-02-28 16:41 | CASEMGMT ---
Social Work Phone call to pt son Piotr and discussed d/c plan. Son and his family work and are unable to provide 24 hour care for pt. Son would like placement at [facility] for short term with termite control servicer plan to take pt home with family. Family is unable to provide transportation to radiation treatments once they begin. If [facility] is unable to accept son would like [facility] at 2nd choice and [facility] as 3rd choice. Referral made to [facility]. Will await determination if they can accept. Plan: [facility], pending acceptance EDWARD Vazquez
[2019-02-28] MEDS: Tamsulosin HCl 0.4 MG Capsule PO (16:50)
[2019-02-28] MEDS: Senna/Docusate Sodium 1 Tablet PO (16:50)
[2019-02-28] MEDS: Pravastatin 80 MG Tablet PO (20:10)
[2019-03-01] MEDS: Amiodarone 200 MG Tablet 100 MG PO (04:55)
[2019-03-01] MEDS: Nystatin Powder 15gm Bottle 1 APPLIC TOPICAL ×2 (04:56→20:02)
[2019-03-01] MEDS: Senna/Docusate Sodium 1 Tablet PO ×2 (04:56→17:10)
[2019-03-01] MEDS: Levothyroxine 50 MCG Tablet PO (04:56)
[2019-03-01] MEDS: Iron Polysaccharide Complex 150 MG CAPSULE PO (04:56)
[2019-03-01] MEDS: Losartan Potassium 100 MG Tablet PO (04:56)
[2019-03-01] MEDS: Menthol/Lanolin/Calamine/Znox 113 GM Tube 1 APPLIC TOPICAL ×2 (04:56→20:02)
[2019-03-01] MEDS: Gabapentin 300 MG Capsule PO ×3 (04:56→20:04)
[2019-03-01] MEDS: Phenytoin Na 100 MG Capsule PO ×3 (08:32→17:10)
[2019-03-01] MEDS: dexAMETHasone 4 MG Tablet 2 MG PO ×2 (08:32→17:10)
[2019-03-01] MEDS: Multivitamins,Ther W-Minerals Tablet 1 TABLET PO (11:39)
[2019-03-01 15:45] VITALS: BP 101/69; PULSE 76; RESP 18; TEMP 36.4; O2SAT 98
--- NOTE | 2019-03-01 15:50 | CASEMGMT ---
Addendum entered by Louann Wilder 03/02/19 10:53: [facility] accepted the patient. Notified son and patient. Son will transport pt about 4:30 pm. Pt will receive radiation tx prior to DC. PASRR completed. Plan: DC to [facility] 03/03. Original Note: Social Work Spoke with [facility] and unable to transport pt to Radiation tx. Referred to [facility] - unable to transport pt to radiation tx. Referred to [facility] - able to refer information and transport to radiation tx. Awaiting outcome. Will continue to follow. PEYMAN LunaW
[2019-03-01] MEDS: Tamsulosin HCl 0.4 MG Capsule PO (17:10)
[2019-03-01] MEDS: Pravastatin 80 MG Tablet PO (20:04)
[2019-03-02] MEDS: Gabapentin 300 MG Capsule PO ×3 (05:16→20:07)
[2019-03-02] MEDS: Losartan Potassium 100 MG Tablet PO (05:16)
[2019-03-02] MEDS: Menthol/Lanolin/Calamine/Znox 113 GM Tube 1 APPLIC TOPICAL ×2 (05:16→20:07)
[2019-03-02] MEDS: Amiodarone 200 MG Tablet 100 MG PO (05:16)
[2019-03-02] MEDS: Iron Polysaccharide Complex 150 MG CAPSULE PO (05:16)
[2019-03-02] MEDS: Senna/Docusate Sodium 1 Tablet PO (05:17)
[2019-03-02] MEDS: Levothyroxine 50 MCG Tablet PO (05:17)
[2019-03-02] MEDS: Nystatin Powder 15gm Bottle 1 APPLIC TOPICAL ×2 (05:17→20:07)
[2019-03-02] MEDS: Phenytoin Na 100 MG Capsule PO ×3 (08:49→17:08)
[2019-03-02] MEDS: dexAMETHasone 4 MG Tablet 2 MG PO ×2 (08:49→17:07)
[2019-03-02] MEDS: Multivitamins,Ther W-Minerals Tablet 1 TABLET PO (12:08)
--- NOTE | 2019-03-02 12:59 | CASEMGMT ---
Social Work BIMS and PHQ-9 completed for MDS assessment. Louann Wilder, PENSION AGENT CLERK ENTRY LEVEL
[2019-03-02 15:08] VITALS: BP 112/49; PULSE 88; RESP 21; TEMP 36.8; O2SAT 96
[2019-03-02] MEDS: Tamsulosin HCl 0.4 MG Capsule PO (17:07)
[2019-03-02] MEDS: Pravastatin 80 MG Tablet PO (20:07)
--- NOTE | 2019-03-02 21:57 | DCINST_ITS ---
- Discharge Diagnoses Current Active Problems: Current Active and Chronic Problems (Last Updated 08/23/17 @ 10:17 by Julianne Hyatt) Debility (Acute) Breast cancer metastasized to brain (Acute) Atrial fibrillation (Chronic) Breast cancer in situ (Chronic) Chronic kidney disease (Chronic) Coronary artery disease (Chronic) Hypertension (Chronic) Iron deficiency anemia (Chronic) Edema (Chronic) Neuropathic pain (Chronic) Hypothyroidism (Chronic) GERD (gastroesophageal reflux disease) (Chronic) Dysphagia (Acute) You will use the following diet at home:: No restrictions, Regular Your food should be the consistency of: Regular Your liquids should be the consistency of: Regular/Thin Discharge Activity: Return to Normal Activity, May Shower, Use Walker Weight Bearing Status: Weight bearing as tolerated Call your doctor if you observe: Fever of 101 or Higher, Inability to urinate, Inability to have a bowel movement, Shortness of breath, Chest pain, Uncontrolled pain Allergies/Adverse Reactions: Allergies codeine Allergy (Verified 03/01/19 11:02) Rash [place]lodipine besylate [place] [facility] Adverse Reaction (Verified 03/01/19 11:02) Pain in joints Medications to take at Discharge Gabapentin [Neurontin] 300 mg PO TID 12/03/15 Levothyroxine [Synthroid] 50 mcg PO DAILY 12/03/15 Amiodarone HCl [Pacerone] 100 mg PO QDAY 02/11/19 Bisacodyl 10 mg ME DAILY PRN PRN 02/11/19 Losartan Potassium 50 mg PO DAILY 02/11/19 Multivit,Calc,Mins/Iron/Folic [Therapeutic-M Tablet] 1 ea PO DAILY 02/11/19 Ondansetron [Ondansetron Odt] 4 mg PO Q6H PRN PRN 02/11/19 Phenytoin Sodium Extended [Dilantin] 100 mg PO TID 02/11/19 Pravastatin [Pravachol] 80 mg PO QHS 02/11/19 Acetaminophen [Tylenol] 1,000 mg PO Q6H PRN PRN tablet 03/02/19 Dexamethasone [Decadron] 2 mg PO BIDCM tab 03/02/19 Iron Polysaccharide Complex [Ferrex 150] 150 mg PO DAILY capsule 03/02/19 Menthol/Lanolin/Calamine/Znox [Calmoseptine Ointment] 1 applic TOPICAL 0600,2200 tube 03/02/19 Nystatin Powder [Mycostatin Powder] 1 applic TOPICAL 0600,2200 bottle 03/02/19 Polyethylene Glycol 3350 [Miralax] 17 gm PO DAILY packet 03/02/19 Potassium Chloride [K-Dur] 20 meq PO DAILYCM tablet 03/02/19 Senna/Docusate Sodium [Senokot-S] 1 tablet PO BID tablet 03/02/19 Tamsulosin HCl [Flomax] 0.4 mg PO DAILY@1730 capsule 03/02/19 potassium chloride ER 20 mEq tablet,extended release 20 meq PO DAILY 03/02/19 Orders to be completed after discharge: RAD ONC: CT Sim [RAD.ONC.[facility]] Time Frame: 1 Day, Facility: [facility], Location: Radiation Oncology Primary Care Physician: Hero Knapp MD [Primary Care Provider] - Please follow up with your Primary Care Physician in: 1 week. Test Results: Test results from this visit will be discussed in further detail at your follow- up appointment, if applicable. Please Follow Up With: Melita Kay When: 2 weeks. Please Follow Up With: Cookie Cooper (neurosurgeon) When: 6 wks Proposed Discharge Date: 03/03/19
--- NOTE | 2019-03-02 21:59 | DS.PCM_ITS ---
Discharge Date and Diagnosis - Problem List Patient Problems: Active and Suspected Problems (Last Updated 08/23/17 @ 10:17 by Julianne Hyatt) Debility (Acute) Breast cancer metastasized to brain (Acute) Dysphagia (Acute) Date of Admission: 02/11/19 Date of Discharge: 03/03/19 - Primary Discharge Diagnosis Active and Suspected Problems (Last Updated 08/23/17 @ 10:17 by Julianne Hyatt) Debility (Acute) Breast cancer metastasized to brain (Acute) Dysphagia (Acute) - Secondary Discharge Diagnosis Chronic Problems (Last Updated 08/23/17 @ 10:17 by Julianne Hyatt) Atrial fibrillation (Chronic) Breast cancer in situ (Chronic) Chronic kidney disease (Chronic) Coronary artery disease (Chronic) Hypertension (Chronic) Iron deficiency anemia (Chronic) Edema (Chronic) Neuropathic pain (Chronic) Hypothyroidism (Chronic) GERD (gastroesophageal reflux disease) (Chronic) Other secondary pulmonary hypertension (Chronic) Long-term use of high-risk medication (Chronic) Atherosclerotic heart disease of [place] coronary artery without angina pectoris (Chronic) CABG x4- BRAMBILA to LAD, SVG to Ramus, SVG to OM1, SVG to RCA w/exclusion of left atrial appendage with a #35mm AtriCure Clip 11/18/15 Paroxysmal atrial fibrillation (Chronic) DCCV 02/2016; History of non-ST elevation myocardial infarction (NSTEMI) (Chronic) 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, bilateral (Chronic) Pulmonary hypertension, secondary (Chronic) Benign essential HTN (Chronic) HLD (hyperlipidemia) (Chronic) CKD (chronic kidney disease) stage 3, GFR 30-59 ml/min (Chronic) Hypokalemia (Chronic) Thyroid disease (Chronic) Cardiomyopathy, ischemic (Chronic) Systolic CHF, chronic (Chronic) Hospital Course and Treatment Imaging Results: 02/15/19 13:53 Diet: Cardiac/Low Cholesterol Is pt able to select menu?: No Diet Comments: low Na Operations: None Procedures: None Summary of Care Provided: The patient is a 78 year old Female with below past medical history hospitalized for vision loss secondary to brain tumor, underwent craniotomy, debulking/biopsy 01/27/2019 showing metastatic breast cancer to brain, complicated by dysphagia requiring [place] for tubefeeding, tubefeeding subsequently discontinued, admitted to TCU with debility, here for rehabilitation, strengthening, prior to disposition determination. [facility]. Whole brain radiation therapy as outpatient. Patient Problems: Active and Suspected Problems (Last Updated 08/23/17 @ 10:17 by Julianne Hyatt) Debility (Acute) Breast cancer metastasized to brain (Acute) Dysphagia (Acute) - Physical Exam Vital Signs Temp Pulse Resp BP Pulse Ox 98.3 F 88 21 H 112/49 L 96 03/02/19 15:08 03/02/19 15:08 03/02/19 15:08 03/02/19 15:08 03/02/19 15:08 Oxygen Delivery Method Room Air Weight: 66.395 kg Body Mass Index (BMI) 29.1 Intake and Output for Last 24 Hours 02/28/19 03/01/19 03/02/19 23:59 23:59 23:59 Intake Total 600 / 600 600 / 600 360 / 360 Output Total 1200 / 1200 700 / 700 Balance -600 / -600 -100 / -100 360 / 360 Discharge Diet: No Restrictions Discharge Activity: Return to Normal Activity, May Shower, Use Walker Weight Bearing Status: Weight bearing as tolerated Call your doctor if you observe: Fever of 101 or Higher, Inability to urinate, Inability to have a bowel movement, Shortness of breath, Chest pain, Uncontrolled pain Home Medications: Medications to take at Discharge RX: Gabapentin [Neurontin] 300 mg PO TID 12/03/15 RX: Levothyroxine [Synthroid] 50 mcg PO DAILY 12/03/15 RX: Amiodarone HCl [Pacerone] 100 mg PO QDAY 02/11/19 RX: Bisacodyl 10 mg NC DAILY PRN PRN 02/11/19 RX: Losartan Potassium 50 mg PO DAILY 02/11/19 RX: Multivit,Calc,Mins/Iron/Folic [Therapeutic-M Tablet] 1 ea PO DAILY 02/11/19 RX: Ondansetron [Ondansetron Odt] 4 mg PO Q6H PRN PRN 02/11/19 RX: Phenytoin Sodium Extended [Dilantin] 100 mg PO TID 02/11/19 RX: Pravastatin [Pravachol] 80 mg PO QHS 02/11/19 RX: Acetaminophen [Tylenol] 1,000 mg PO Q6H PRN PRN tablet 03/02/19 RX: Dexamethasone [Decadron] 2 mg PO BIDCM tab 03/02/19 RX: Iron Polysaccharide Complex [Ferrex 150] 150 mg PO DAILY capsule 03/02/19 RX: Menthol/Lanolin/Calamine/Znox [Calmoseptine Ointment] 1 applic TOPICAL 0600,2200 tube 03/02/19 RX: Nystatin Powder [Mycostatin Powder] 1 applic TOPICAL 0600,2200 bottle 03/02/19 RX: Polyethylene Glycol 3350 [Miralax] 17 gm PO DAILY packet 03/02/19 RX: Potassium Chloride [K-Dur] 20 meq PO DAILYCM tablet 03/02/19 RX: Senna/Docusate Sodium [Senokot-S] 1 tablet PO BID tablet 03/02/19 RX: Tamsulosin HCl [Flomax] 0.4 mg PO DAILY@1730 capsule 03/02/19 potassium chloride ER 20 mEq tablet,extended release 20 meq PO DAILY 03/02/19 Other Amb Orders: RAD ONC: CT Sim [RAD.ONC.[facility]] Time Frame: 1 Day, Facility: [facility], Location: Radiation Oncology Primary Care Physician: Hero Knapp MD [Primary Care Provider] - Please follow up with your Primary Care Physician in: 1 week. Please Follow Up With: Melita Kay When: 2 weeks. Please Follow Up With: Cookie Cooper (neurosurgeon) When: 6 wks Disposition: Asstd Living/Non-Skill NM Minutes spent on discharge:: 35 Patient Condition:: Stable Medical Necessity - Tobacco Use Smoking Status: Never smoker Tobacco Use: Non-smoker Meaningful Use Info Meaningful Use Diagnoses (Choose all that apply): None applicable
--- NOTE | 2019-03-02 22:00 | TREXTCAR_ITS ---
- Diet 02/15/19 13:53 Diet: Cardiac/Low Cholesterol Is pt able to select menu?: No Diet Comments: low Na - Routine Orders/Code Status Suppository Type: Dulcolax 10mg Suppository Frequency: Daily PRN Code Status: Full Code - Wound(s) rt side head Wound Type: Surgical Incision lt elbow Wound Type: Abrasion back/top head Wound Type: scattered scabs rt wrist Wound Type: Abrasion Mid back Wound Type: Scattered abrasions - Therapies Weight Bearing: Weight bearing as tolerated - Problem/Diagnosis (1) Debility Status: Acute Current Visit: Yes (2) Breast cancer metastasized to brain Status: Acute Current Visit: Yes (3) Atrial fibrillation Status: Chronic Current Visit: Yes (4) Breast cancer in situ Status: Chronic Current Visit: Yes (5) Chronic kidney disease Status: Chronic Current Visit: Yes (6) Coronary artery disease Status: Chronic Current Visit: Yes (7) Hypertension Status: Chronic Current Visit: Yes (8) Iron deficiency anemia Status: Chronic Current Visit: Yes (9) Edema Status: Chronic Current Visit: Yes (10) Neuropathic pain Status: Chronic Current Visit: Yes (11) Hypothyroidism Status: Chronic Current Visit: Yes (12) GERD (gastroesophageal reflux disease) Status: Chronic Current Visit: Yes (13) HLD (hyperlipidemia) Status: Chronic Current Visit: No (14) Hypokalemia Status: Chronic Current Visit: No (15) Dysphagia Status: Acute Current Visit: Yes - Allergies/Procedures Done in Hospital Allergies/Adverse Reactions: Allergies codeine Allergy (Verified 03/01/19 11:02) Rash amlodipine besylate [From [facility]] Adverse Reaction (Verified 03/01/19 11:02) Pain in joints - Type of Care/Length of Stay Estimated LOS: Convalescent Care Less Than 30 days Type of Care Needed: Intermediate Rehab Potential: Good Prognosis: Poor - Additional Orders/Day of Discharge Day of Discharge: 03/03/19 - Dietary and Speech Recommendations Dietitian Recommendations/Changes: Rec continue Cardiac/low sodium diet d/t pmhx - Follow Up Care Primary Care Physician: Hero Knapp MD [Primary Care Provider] - Please follow up with your Primary Care Physician in: 1 week. Please Follow Up With: Melita Kay When: 2 weeks. Please Follow Up With: Cookie Cooper (neurosurgeon) When: 6 wks
[2019-03-03] MEDS: Amiodarone 200 MG Tablet 100 MG PO (05:23)
[2019-03-03] MEDS: Senna/Docusate Sodium 1 Tablet PO ×2 (05:23→16:54)
[2019-03-03] MEDS: Iron Polysaccharide Complex 150 MG CAPSULE PO (05:23)
[2019-03-03] MEDS: Levothyroxine 50 MCG Tablet PO (05:23)
[2019-03-03] MEDS: Losartan Potassium 100 MG Tablet PO (05:23)
[2019-03-03] MEDS: Gabapentin 300 MG Capsule PO ×2 (05:23→13:20)
[2019-03-03] MEDS: Nystatin Powder 15gm Bottle 1 APPLIC TOPICAL (05:24)
[2019-03-03] MEDS: Menthol/Lanolin/Calamine/Znox 113 GM Tube 1 APPLIC TOPICAL (05:24)
[2019-03-03] MEDS: Phenytoin Na 100 MG Capsule PO ×3 (07:58→16:53)
[2019-03-03] MEDS: dexAMETHasone 4 MG Tablet 2 MG PO ×2 (07:58→16:53)
[2019-03-03] MEDS: Multivitamins,Ther W-Minerals Tablet 1 TABLET PO (12:44)
[2019-03-03 15:44] VITALS: BP 119/58; PULSE 82; RESP 18; TEMP 37; O2SAT 95
--- NOTE | 2019-03-03 15:55 | NURSING ---
This nurse aware of the recent Vital Signs that were taken.
[2019-03-03] MEDS: Tamsulosin HCl 0.4 MG Capsule PO (16:53)
--- NOTE | 2019-03-03 16:58 | NURSING ---
Report given to Areli Valdes at [facility].
[2019-03-03 17:08] VITALS: BP 119/58; PULSE 82; RESP 18; TEMP 37; O2SAT 95
--- NOTE | 2019-03-09 14:16 | MDS.RN ---
Information for the mds was obtained from review of the clinical record, interview of resident, staff, and direct observation of resident's care.
== END 2019-03-03 17:00 | disposition intermediate care facility (04) | DRG 949 ==
PROVIDERS: Admitting Provider Family Medicine Geriatric Medicine; Family Provider Family Medicine; PCP Family Medicine; Visit Provider Family Medicine Geriatric Medicine
DX: Z48.811 Encounter for surgical aftercare following surgery on the nervous system (principal); I13.0 Hypertensive heart and chronic kidney disease with heart failure and stage 1 through stage 4 chronic kidney disease, or unspecified chronic kidney disease; I50.22 Chronic systolic (congestive) heart failure; C79.31 Secondary malignant neoplasm of brain; D50.9 Iron deficiency anemia, unspecified; I25.10 Atherosclerotic heart disease of native coronary artery without angina pectoris; N18.3 Chronic kidney disease, stage 3 (moderate); E78.5 Hyperlipidemia, unspecified; E03.9 Hypothyroidism, unspecified; F91.9 Conduct disorder, unspecified; C50.919 Malignant neoplasm of unspecified site of unspecified female breast; I48.0 Paroxysmal atrial fibrillation; K21.9 Gastro-esophageal reflux disease without esophagitis; I27.29 Other secondary pulmonary hypertension; Z95.1 Presence of aortocoronary bypass graft; I25.2 Old myocardial infarction; Z92.3 Personal history of irradiation
CPT/HCPCS: 36415; 80048; 80185; 85025; 97110; 97116; 97127; 97162; 97166; 97530; 97535; 97802; G0515